=== PATIENT | male | born 1960 | race Caucasian/White ===

== ENCOUNTER → 2017-07-25 | Outpatient (CLI) | payer MEDICARE, OTHER ==
[2017-03-29 17:44] VITALS: BMI 30.6
[~2017-07-25] MED LIST: AMOX-559 PO; BACDS GT; BACL-51 PO; BACL50AM IT; CALC500T6 PO; CAR350 PO; CARI250T10 PO; CEPH-13 PO; CEPH500C24 PO; DEN60I SUBQ; DOCU-416 PO; GAV PO; HYDR-3250 PO; IBU600 PO; LOR5 PO; MOM110R IH; MOMR; MON10 PO; MOXI400T28 PO; MULT1TAB64 PO; NAPR-712 PO; OXY5 TD; OXYB10TA16 PO; OXYXL5 PO; PER PO; POLY119P24 PO; POLY17PO33 PO; RAN150 PO; TAMS0.4C25 PO; TEST2.5G6 TD; VILA40TA PO; [UNRECOGNIZED DRUG - CODE] TP; [UNRECOGNIZED DRUG - OTHER]; [UNRECOGNIZED DRUG - OTHER]; [UNRECOGNIZED DRUG - OTHER] PO
--- NOTE | 2017-07-25 12:14 | RADIOLOGY IMAGING REPORT ---
FACILITY: [facility] - [place] PATIENT NAME: Ramu Carney : 1960 MR: [id number] V: [id number] EXAM DATE: ORDERING PHYSICIAN: CHASTITY KENNEDY TECHNOLOGIST: [place] [facility] [place] Patient: Ramu Carney : 1960 Visit/Account:[id number] Date of Sevice: 07/25/2017 KIDNEYS EXAMINATION: Renal ultrasound. History: Urinary frequency, history of hydro- COMPARISON STUDIES: June 16, 2016 FINDINGS: Kidneys: Right kidney- 8.9 x 4.9 x 4.2 cm resistive index 0.59 Left kidney- 9.8 x 4.8 x 4.8 cm resistive index 0.6 Uniform and symmetric blood flow in each kidney by Doppler ultrasound. Hydronephrosis: Mild on the right There is a lobular contour to both kidneys similar to the prior study Bladder: Prevoid volume 373 mL. Bilateral ureteral jets are present Post void residual was not measured Abdominal aorta and IVC: Aorta and IVC are patent by Doppler ultrasound. IMPRESSION: Lobular contour to both kidneys similar to the prior study Mild right hydronephrosis Bladder prevoid volume 373 mL Report Dictated By: Gracy Veras MD at 07/25/2017 12:05 PM Report E-Signed By: Gracy Veras MD at 07/25/2017 12:10 PM WSN:[email or web address]
== END ==
LOC: US 00:32
PROVIDERS: ATTEND Urology
DX: Z12.5 Encounter for screening for malignant neoplasm of prostate (principal); N13.30 Unspecified hydronephrosis; N28.9 Disorder of kidney and ureter, unspecified; N31.2 Flaccid neuropathic bladder, not elsewhere classified; R35.0 Frequency of micturition; E29.1 Testicular hypofunction
CPT/HCPCS: 36415; 76705; 82565; G0103; 84153

== ENCOUNTER → 2017-08-08 | Outpatient (CLI) | payer MEDICARE, OTHER ==
[2017-03-29 17:44] VITALS: BMI 30.6
[~2017-08-08] MED LIST changes: +IOPAMIDOL 76% 150 ML INFUS BTL 150 ML ONE; +NS 0.9% 150 ML BAG 150 ML ONE
--- NOTE | 2017-08-08 11:37 | RADIOLOGY IMAGING REPORT ---
FACILITY: [facility] [place] PATIENT NAME: Ramu Carney : 1960 MR: [id number] V: [id number] EXAM DATE: ORDERING PHYSICIAN: CHASTITY KENNEDY TECHNOLOGIST: Location: [facility] - [place] Patient: Ramu Carney : 1960 Visit/Account:[id number] Date of Sevice: 08/08/2017 ADDENDUM #1 Addendum: Seen but failed to be described in the initial report was a neurostimulator lead entering t he lumbar vertebral body at the L2-3 level and extending into the lower thoracic spine. Report Dictated By: Tee Medina MD at 08/08/2017 11:55 AM Report E-Signed By: Tee Medina MD at 08/08/2017 11:56 AM ORIGINAL REPORT ABDOMEN/PELVIS W/WO CONTRAST HISTORY: Microhematuria TECHNIQUE: Spiral scan was obtained through the abdomen/pelvis last pelvis without intravenous cont rast. One of the following dose optimization techniques was utilized in the performance of this exam: Autom ated exposure control; adjustment of the mA and/or kV according to the patient's size; or use of an i terative reconstruction technique. Specific details can be referenced in the facility's radiology C T exam operational policy. COMPARISON STUDIES: none. FINDINGS: Please note that without intravenous contrast, sensitivity to detection of parenchymal disease is price ited. Liver / biliary: Status post cholecystectomy Pancreas: negative Spleen: negative Adrenal glands: negative Kidneys / retroperitoneum: Moderate left hydronephrosis with an obstructing 10 mm x 5.5 mm stone in t he proximal left ureter (image 67 axial and image 54 coronal). No additional stones seen within eith er kidney. Bowel / peritoneum / mesenteries: No colonic mass lesion. No bowel inflammation. Vessels: negative Musculoskeletal / Body wall: negative Lymph node assessment: negative Lower chest: negative IMPRESSION: 1. Obstructing 10 x 5.5 mm stone in the proximal left ureter. Report Dictated By: Tee Medina MD at 08/08/2017 11:08 AM Report E-Signed By: Tee Medina MD at 08/08/2017 11:33 AM WSN:[email or web address]
== END ==
LOC: CT 02:23
PROVIDERS: ATTEND Urology
DX: N20.1 Calculus of ureter (principal); Z96.89 Presence of other specified functional implants
CPT/HCPCS: 74178; Q9967

== ENCOUNTER 2017-08-17 01:18 | Day surgery (SDC) | payer MEDICARE, OTHER ==
[2017-03-29 17:44] VITALS: Ht 177.8 cm; Wt 87.1 kg
[2017-08-16 10:12] LABS: PLATELET COUNT, AUTOMATED 240 K/uL (150-450)
[2017-08-16 10:29] LABS: INR 0.99
--- NOTE | 2017-08-16 15:05 | HISTORY AND PHYSICAL ---
DATE OF ADMISSION: August 17, 2017 CHIEF COMPLAINT Microscopic hematuria with kidney stone. HISTORY OF PRESENT ILLNESS The patient is a 57-year-old white gentleman with a history of neurogenic bladder and BPH secondary to hydrocephalus and cerebral palsy who has been followed in the urology clinic for several years, and on his most recent followup, he was noted to have significant microscopic hematuria with greater than 100,000 red blood cells. He denied significant change in his symptoms. He says he had no gross hematuria or significant flank pain. He was currently managing his bladder on Flomax and Ditropan with good results. A renal ultrasound was performed on July 25, 2017, which was read as having mild hydronephrosis, but otherwise normal with a post-void residual of 337. Given his significant amount of microscopic hematuria, a CT urogram was performed on August 08, 2017, which revealed moderate left hydroureteral nephrosis to a 10.0 x 5.5 mm stone in the proximal left ureter. No other additional stones were identified. The patient was called, and we discussed the results of this x- ray. Given the large size and hydronephrosis, it was extremely unlikely he would pass this stone, and has elected to undergo urologic intervention with planned stent placement with extracorporeal shockwave lithotripsy and/or ureteroscopy as indicated. We also discussed, given the large size and unknown timeframe this stone has been there, it could be significantly impacted, thereby compromising her ability to place a stent from below. If this is unsuccessful, then he might need a percutaneous nephrostomy tube to provide drainage. He understands this plan. PAST MEDICAL HISTORY 1. Hydrocephalus with cerebral palsy. 2. Depression. 3. Degenerative joint disease. 4. History of bronchitis. 5. History of left lower leg cellulitis. 6. Gastroesophageal reflux disease. 7. Neurogenic bladder with urge incontinence and BPH. PAST SURGICAL HISTORY 1. Tonsillectomy. 2. Laparoscopic cholecystectomy. 3. Appendectomy. 4. Baclofen pump. 5. Right ankle fusion. 6. Bilateral vasectomy. 7. Ventricular atrial shunt with several revisions. 8. Right orchiectomy secondary to torsion with left orchiopexy. CURRENT MEDICATIONS 1. Intrathecal baclofen. 2. Vilazodone. 3. Ditropan. 4. Flomax. 5. Ranitidine. 6. Naproxen. 7. Tylenol. 8. Colace. ALLERGIES LATEX. Nausea and vomiting with CODEINE. FAMILY HISTORY Noncontributory. REVIEW OF SYSTEMS Patient denies gross hematuria, flank pain, nausea, vomiting, fever, chills, productive cough, chest pain or bleeding disorder. PHYSICAL EXAMINATION GENERAL: Patient is a 57-year-old white male with cerebral palsy defects with decreased motor in extremities x 4. He is alert and oriented. CHEST: Clear to auscultation. CARDIOVASCULAR EXAM: Regular rate and rhythm. ABDOMINAL EXAM: Soft, nontender, no masses are palpated. EXAM: Deferred to the OR. EXTREMITY EXAM: He has pitting edema bilaterally. IMPRESSION This is a 57-year-old white male with a history of neurogenic bladder secondary from cerebral palsy and hydrocephalus, who is now noted to have microscopic hematuria. Workup with a CT urogram revealed a normal upper tract except for a 10 x 5 mm stone in the left proximal ureter with hydronephrosis. PLAN We will perform anesthetic cystoscopy followed by left ureteral stent placement with possible ureteroscopy and/or extracorporeal shockwave lithotripsy as indicated. ANGELINE
[2017-08-17] VITALS (7 sets, daily range): BP systolic 123–137; BP diastolic 68–91
[~2017-08-17] VITALS: Ht 177.8 cm; Wt 87.1 kg
[~2017-08-17 01:18] MED LIST changes: -IOPAMIDOL 76% 150 ML INFUS BTL 150 ML ONE; -NS 0.9% 150 ML BAG 150 ML ONE
[2017-08-17] MEDS: FAMOTIDINE 20 MG TAB PO ONE ×2 (09:56→10:27)
[2017-08-17] MEDS ORDERED: ceFAZolin(*) 1 GM VIAL 1 GM in NS(*) 0.9% 100 ML ADDVANT BAG 100 ML IVPB ONE (10:00)
[2017-08-17] MEDS ORDERED: MIDAZOLAM 2 MG/2 ML VIAL IVP PRN (11:10)
[2017-08-17] MEDS ORDERED: LIDOCAINE/SOD BICARB 8.4% SYR ID ONE (11:10)
[2017-08-17] MEDS ORDERED: NORMOSOL R SOLN(*) 1000 ML BAG 1,000 ML IV PRN (11:10)
--- NOTE | 2017-08-17 11:26 | RADIOLOGY IMAGING REPORT ---
FACILITY: [facility] PATIENT NAME: Ramu Carney : 1960 MR: [id number] V: [id number] EXAM DATE: ORDERING PHYSICIAN: CHASTITY KENNEDY TECHNOLOGIST: Location: [facility] - [place] Patient: Ramu Carney : 1960 Visit/Account:[id number] Date of Sevice: 08/17/2017 ABDOMEN PELVIS ESWL CYSTO W/O HISTORY: Kidney stones TECHNIQUE: Axial images acquired through the abdomen/pelvis. Coronal and sagittal reformatting also performed. No IV contrast administered. Dose Lowering Technique One of the following dose optimization techniques was utilized in the performance of this exam: Autom ated exposure control; adjustment of the mA and/or kV according to the patient's size; or use of an i terative reconstruction technique. Specific details can be referenced in the facility's radiology C T exam operational policy. COMPARISON: August 08, 2017 FINDINGS: Visualized lung bases: Negative. Hepatobiliary: There is a 2.2 x 1.6 x 2 cm focal area of decreased attenuation along the anterior as pect medial segment left lobe of the liver appears relatively unchanged this has remained stable when compared to prior CT from October 29, 2007 . Patient status post cholecystectomy Spleen: Accessory splenule Adrenals: Negative. Pancreas: Negative. Kidneys ureters and bladder: 9 x 5 x 9 mm calculus previously noted at the left UPJ has migrated retr ograde and now sits within the left renal pelvis. There is no evidence of hydronephrosis or hydroure ter. There is a 1 mm nonobstructing calculus mid pole of the right kidney. No other calcifications seen in the left renal collecting system. 1.5 cm cyst medial inferior pole of the right kidney appea rs unchanged Genitalia: Negative. GI: There is circumferential rectal wall thickening . There is a moderate amount of fecal material seen in the right-sided the colon. There is no evidence of bowel obstruction Vessels/spaces/nodes: Negative. Bones/soft tissues: A battery pack projects over the septae soft tissues anterior right pelvis. The electrode extends to the thoracolumbar spinal canal. There is a small umbilical hernia containing f at Additional findings: None pertinent. IMPRESSION: There is a stable hypoattenuating mass anterior aspect medial segment left lobe of the liver since 01 01 Post surgical changes from a cholecystectomy Previous seen noted 9 x 5 x 9 mm calculus at the left UPJ has migrated retrograde and now sits in the left renal pelvis without evidence of hydronephrosis. 1 mm nonobstructing calculus mid pole right kidney There is circumferential rectal wall thickening. This could be related to decompression versus an in flammatory process although neoplastic process not entirely excluded Moderate amount of fecal material right-sided the colon which may be related to constipation. Additional chronic findings as described Report Dictated By: Gracy Veras MD at 08/17/2017 11:10 AM Report E-Signed By: Gracy Veras MD at 08/17/2017 11:22 AM WSN:[email or web address]
[2017-08-17] MEDS ORDERED: DEXAMETHASONE SOD 4 MG/ML VIAL ONE (11:43)
[2017-08-17] MEDS ORDERED: PROPOFOL EMUL(*) 10MG/ML 20 ML 20 ML ONE (11:43)
[2017-08-17] MEDS ORDERED: LIDOCAINE MPF 1% 5 ML VIAL ONE (11:43)
[2017-08-17] MEDS ORDERED: ONDANSETRON 4 MG/2 ML VIAL ONE (11:43)
[2017-08-17] MEDS ORDERED: fentaNYL CITR 100 MCG/2 ML AMP ONE (11:43)
[2017-08-17] MEDS ORDERED: LIDOCAINE 2% JELLY 30 ML TUBE ONE (12:04)
[2017-08-17] MEDS ORDERED: IOPAMIDOL-200 50 ML VIAL IS ONE (12:04)
[2017-08-17] MEDS ORDERED: KETAMINE HCL 200 MG/20 ML MDV ONE (13:00)
[2017-08-17] MEDS ORDERED: KETOROLAC 30 MG/ML VIAL ONE (13:55)
[2017-08-17] MEDS ORDERED: IBUP600T22 PO (14:34)
[2017-08-17] MEDS ORDERED: HYDR-4309 PO (14:34)
--- NOTE | 2017-08-17 21:41 | OPERATIVE REPORT 1 ---
EVENT DATE: August 17, 2017 SURGEON: Mook Murray MD ANESTHESIOLOGIST: Kyle Tinoco MD ANESTHESIA: General anesthetic. PREOPERATIVE DIAGNOSIS Left 10 x 6 mm renal pelvis kidney stone. POSTOPERATIVE DIAGNOSIS Left 10 x 6 mm renal pelvis kidney stone. PROCEDURES PERFORMED 1. Cystoscopy. 2. Left internal double-J ureteral stent placement. 3. Left extracorporeal shock wave lithotripsy of 10 x 6 mm left renal pelvis stone. ESTIMATED BLOOD LOSS Minimal. INTRAVENOUS FLUIDS Crystalloids. DRAINS 6-Micronesian x 26 cm Contour Microvasive stent on left. COMPLICATIONS None. CONDITION Patient taken to recovery room awake, in stable condition. STATEMENT OF MEDICAL NECESSITY Patient is a 57-year-old white male with history of a neurogenic bladder secondary to hydrocephalus and CP, who was noted to have increasing microscopic hematuria. CT scan performed revealed a 10 x 6 mm stone in the left proximal ureter with hydronephrosis. The above findings were discussed with the patient over the phone, and he has elected to undergo urologic intervention. Preoperative x-ray today has revealed the stone has migrated back into the renal pelvis. His urinalysis is normal today with a normal creatinine. We plan stent placement with extracorporeal shock wave lithotripsy of the left renal pelvis stone. DESCRIPTION OF PROCEDURE PERFORMED Patient was brought to the operating room. After general anesthetic was obtained, he was placed in the dorsal lithotomy position with pressure points padded and prepped and draped sterilely. Anesthetic cystoscopy was performed with the 21-Micronesian rigid sheath with a 30-degree lens. He had a normal- appearing pendulous bulbar and membranous and prostatic urethra. Upon entering his bladder, he had a smooth bladder mucosa without evidence of lesions or tumors. Both ureteral orifices were in their respective marcelina-trigone effluxing clear urine. The left ureteral orifice cannulated with a sensor wire, and an access 6-Micronesian catheter was advanced over the wire up to the level of the renal pelvis. The wire was advanced up to the renal pelvis. The access catheter was removed, and the wire was used to place a 6-Micronesian x 26 cm Contour stent. The wire was removed. He was noted to have good curling in the renal pelvis by fluoroscopy and good curling in the bladder by direct vision. The patient's bladder was drained through the cystoscopic sheath. He was then repositioned supine with his pressure points padded, and lithotripsy of the left renal pelvis stone was performed. The stone was placed in the lithotripsy crosshairs in two planes. Treatment was begun at a power setting of 1 and gradually increased to a power setting of 3 over the course of the first 300 shocks. A three-minute pause was then performed, and treatment resumed. The power was gradually increased to a max power of 7.5 over the course of the first 1500 shocks. He received a total of 3000 shocks to the left renal pelvis. Intermittent two-plane fluoroscopy was used to ensure the crosshairs remained on the stone and stone fragment pile. At the conclusion of treatment, no significant stone fragments could be identified. At this point, the patient was awakened in the operating room and taken to the recovery area in stable condition. PLAN The plan will be to allow the patient to be discharged home today, and he is to continue his Ditropan, Flomax, and Colace. He is given a prescription for [place] and Motrin. We will plan to see him in the Urology Clinic in approximately four to six weeks for a followup x-ray. If he is deemed stone- free, we will remove his stent in the office. If not, we will return to the operating room for stent removal and followup ESWL and/or ureteroscopy as indicated. ANGELINE
== END 2017-08-17 14:52 | disposition home or self-care (01) ==
LOC: OR 01:18
PROVIDERS: ATTEND Urology
DX: N13.2 Hydronephrosis with renal and ureteral calculous obstruction (principal); N31.9 Neuromuscular dysfunction of bladder, unspecified; N40.1 Benign prostatic hyperplasia with lower urinary tract symptoms; N39.41 Urge incontinence; R31.9 Hematuria, unspecified; G91.9 Hydrocephalus, unspecified; G80.9 Cerebral palsy, unspecified; F32.9 Major depressive disorder, single episode, unspecified; G47.30 Sleep apnea, unspecified; K21.9 Gastro-esophageal reflux disease without esophagitis; Z90.49 Acquired absence of other specified parts of digestive tract; Z98.2 Presence of cerebrospinal fluid drainage device; Z88.8 Allergy status to other drugs, medicaments and biological substances; Z91.040 Latex allergy status
CPT/HCPCS: 36415; 50590; 52356; 74176; 81001; 85025; 85610; 85730; 87088; C2617; J0690; J1100; J1885; J2001; J2405; J2704; J3010; J3490; J7050; 82040; 82247; 82310; 82374; 82435; 82565; 82947; 84075; 84132; 84155; 84295; 84450; 84460; 84520; Q9966

== ENCOUNTER 2017-09-25 08:00 | Outpatient (RCR) | payer MEDICARE, OTHER ==
[2017-03-29 17:44] VITALS: Ht 177.8 cm; Wt 90.3 kg
[~2017-09-25] VITALS: Ht 177.8 cm; Wt 90.3 kg
[~2017-09-25 08:00] MED LIST changes: +HYDR-4309 PO; +IBUP600T22 PO; +MODA100T5 PO
--- NOTE | 2017-09-27 17:13 | HISTORY AND PHYSICAL ---
DATE OF ADMISSION: September 28, 2017 CHIEF COMPLAINT Kidney stone. HISTORY OF PRESENT ILLNESS Patient is a 57-year-old white gentleman with a neurogenic bladder and BPH secondary to hydrocephalus and cerebral palsy who was noted to have microscopic hematuria. A CT scan was performed which showed a 10 x 6 mm stone in the left proximal ureter. The patient was subsequently taken to the operating room on August 17, at which time he underwent placement of left internal double-J ureteral stent and had extracorporeal shock wave lithotripsy of this stone. He is now being returned to the operating room for stent removal, follow-up ureteroscopy and/or ESWL as indicated. PAST MEDICAL HISTORY * Hydrocephalus with cerebral palsy. * Depression. * Degenerative joint disease. * Bronchitis. * Left lower leg cellulitis. * Gastroesophageal reflux disease. * Neurogenic bladder with urge incontinence and BPH. * Kidney stones. PAST SURGICAL HISTORY * Tonsillectomy. * Laparoscopic cholecystectomy. * Appendectomy. * Baclofen pump. * Right ankle fusion. * Bilateral vasectomy. * Ventriculoatrial shunt with several revisions. * Right orchiectomy secondary to torsion with left orchiopexy. * Left stent placement with extracorporeal shock wave lithotripsy, August 17, 2017. ALLERGIES 1. LATEX. 2. He does report nausea and vomiting with CODEINE. CURRENT MEDICATIONS * Intrathecal baclofen. * Ditropan. * Vilazodone. * Flomax. * Ranitidine. * Naprosyn. * Colace. * Tylenol. FAMILY HISTORY Noncontributory. REVIEW OF SYSTEMS Patient denies gross hematuria, fevers, chills, productive cough, chest pain, change in voiding or chronic headaches. PHYSICAL EXAMINATION GENERAL: Patient is a 57-year-old white male with cerebral palsy with extremity motor defects and contractions. He is alert and oriented. CHEST: Clear to auscultation. CARDIOVASCULAR: Exam is regular rate and rhythm. ABDOMEN: Soft, nontender. No masses are palpated. GENITOURINARY: Exam is deferred to the operating room. EXTREMITIES: He has bilateral lower pitting edema 1+. No evidence of infection. IMPRESSION A 57-year-old white male with a history of a 10 x 6 mm left kidney stone status post stent placement and extracorporeal shock wave lithotripsy. PLAN We will perform a cystoscopy, stent removal with possible ureteroscopy and/or extracorporeal shock wave lithotripsy as indicated. [facility]
[2017-09-28 07:30] VITALS: BP 113/63
[2017-09-28] MEDS ORDERED: NORMOSOL R SOLN(*) 1000 ML BAG 1,000 ML IV PRN (07:45)
[2017-09-28] MEDS ORDERED: LIDOCAINE/SOD BICARB 8.4% SYR ID ONE (07:45)
[2017-09-28] MEDS ORDERED: MIDAZOLAM 2 MG/2 ML VIAL IVP PRN (07:45)
[2017-09-28] MEDS ORDERED: ceFAZolin(*) 1 GM VIAL 1 GM in NS(*) 0.9% 100 ML ADDVANT BAG 100 ML IVPB ONE (07:45)
[2017-09-28] MEDS ORDERED: fentaNYL CITR 100 MCG/2 ML AMP ONE (07:52)
[2017-09-28] MEDS ORDERED: DEXAMETHASONE SOD PHOS 10MG/ML ONE (07:59)
[2017-09-28] MEDS ORDERED: LIDOCAINE MPF 1% 5 ML VIAL ONE (07:59)
[2017-09-28] MEDS ORDERED: ONDANSETRON 4 MG/2 ML VIAL ONE (07:59)
[2017-09-28] MEDS ORDERED: PROPOFOL EMUL(*) 10MG/ML 20 ML 0 ML ONE (07:59)
--- NOTE | 2017-09-28 08:49 | RADIOLOGY IMAGING REPORT ---
FACILITY: [facility] - [place] PATIENT NAME: Ramu Carney : 1960 MR: [id number] V: [id number] EXAM DATE: ORDERING PHYSICIAN: CHASTITY KENNEDY TECHNOLOGIST: Location: [facility] [place] Patient: Ramu Carney : 1960 Visit/Account:[id number] Date of Sevice: 09/28/2017 ABDOMEN PELVIS ESWL CYSTO W/O HISTORY: STONE PLACEMENT TECHNIQUE: Axial images acquired through the abdomen/pelvis. Coronal and sagittal reformatting also performed. No IV contrast administered. Dose Lowering Technique One of the following dose optimization techniques was utilized in the performance of this exam: Autom ated exposure control; adjustment of the mA and/or kV according to the patient's size; or use of an i terative reconstruction technique. Specific details can be referenced in the facility's radiology C T exam operational policy. COMPARISON: August 17, 2017 FINDINGS: Visualized lung bases: Negative. Hepatobiliary: Previously noted 2.2 x 1.6 x 2 cm hypoattenuating lesion along the anterior aspect me dial segment left lobe of the liver appears unchanged and has remained stable when compared to prior from CT from October 29, 2007 . Spleen: Accessory splenule Adrenals: Negative. Pancreas: Negative. Kidneys ureters and bladder: Previously noted stone in the left renal pelvis has apparently been frag mented with several tiny stones now seen in the lower pole calyces of the left kidney, ranging in siz e from 1 to 2 mm. There Is a left ureteral stent in place. No stones are identified along the cours e of the stent. Previously noted 1 mm stone midpole of the right kidney to longer seen. Lower pole right renal cyst appears unchanged Genitalia: Negative. GI: Circumferential rectal wall thickening appears similar to the prior study. There is a moderate amount of fecal material throughout colon which can be seen with constipation. No evidence of bowel obstruction. Vessels/spaces/nodes: Negative. Bones/soft tissues: Battery pack projects over the subcutaneous soft tissues along the anterior righ t pelvis. Electrodes extend to the thoracolumbar spinal canal. Is a small focal hernia containing f at. No aggressive appearing bone lesions are seen Additional findings: None pertinent. IMPRESSION: Is a left ureteral stent in place. No callus occasions are identified along the course of the stent. The previous calculus in the left renal pelvis has been fragmented with several small stones now seen in lower pole calyces the left kidney ranging in size from 1 to 2 mm Previously noted 1 mm stone in the mid right kidney is no longer seen. Additional chronic findings as described Report Dictated By: Gracy Veras MD at 09/28/2017 8:29 AM Report E-Signed By: Gracy Veras MD at 09/28/2017 8:44 AM STEPHANYN:[email or web address]
[2017-09-28] MEDS ORDERED: SULF-198 PO ×2 (09:37)
== END 2017-09-28 18:00 | disposition home or self-care (01) ==
LOC: LAB 08:00 → OR 09-28 00:43 → EDSTATUS 09-28 09:15 → LAB 09-28 18:00
PROVIDERS: ATTEND Urology
DX: N20.0 Calculus of kidney (principal); G80.9 Cerebral palsy, unspecified; F32.9 Major depressive disorder, single episode, unspecified; K21.9 Gastro-esophageal reflux disease without esophagitis; N31.9 Neuromuscular dysfunction of bladder, unspecified
CPT/HCPCS: 74176; 81001; J1100; J2001; J2405; J2704; J3010

== ENCOUNTER 2017-10-05 00:13 | Day surgery (SDC) | payer MEDICARE, OTHER ==
[2017-03-29 17:44] VITALS: Ht 177.8 cm; Wt 90.4 kg
--- NOTE | 2017-10-04 14:49 | HISTORY AND PHYSICAL ---
INTERVAL HISTORY AND PHYSICAL DATE OF ADMISSION: October 05, 2017 CHIEF COMPLAINT Kidney stones. HISTORY OF INTERVAL PRESENT ILLNESS The patient is a 57-year-old white male who was originally scheduled for ESWL with removal of internal ureteral stent last week. However, on presentation to the hospital, he was experiencing extremely foul-smelling urine, and his urine appeared to be grossly infected. He was empirically started on Bactrim twice a day. The patient reports immediate relief of symptoms over the course of two days. Urine culture performed two days ago is currently without growth. We plan to proceed with left lower pole extracorporeal shock wave lithotripsy with cystoscopy with removal of left internal stent. [facility]
[~2017-10-05] VITALS: Ht 177.8 cm; Wt 90.4 kg
[~2017-10-05 00:13] MED LIST changes: +SULF-198 PO
[2017-10-05] MEDS: FAMOTIDINE 20 MG TAB PO ONE ×2 (08:06→08:29)
[2017-10-05 08:10] VITALS: BP 118/70
[2017-10-05] MEDS ORDERED: fentaNYL CITR 100 MCG/2 ML AMP ONE (08:32)
[2017-10-05] MEDS ORDERED: DEXAMETHASONE SOD 4 MG/ML VIAL ONE (08:32)
[2017-10-05] MEDS ORDERED: LIDOCAINE MPF 1% 5 ML VIAL ONE (08:32)
[2017-10-05] MEDS ORDERED: ONDANSETRON 4 MG/2 ML VIAL ONE (08:32)
[2017-10-05] MEDS ORDERED: PROPOFOL EMUL(*) 10MG/ML 20 ML 20 ML ONE (08:32)
--- NOTE | 2017-10-05 09:13 | RADIOLOGY IMAGING REPORT ---
FACILITY: [facility] - [place] PATIENT NAME: Ramu Carney : 1960 MR: [id number] V: [id number] EXAM DATE: ORDERING PHYSICIAN: CHASTITY KENNEDY TECHNOLOGIST: Location: [facility] Patient: Ramu Carney : 1960 Visit/Account:[id number] Date of Sevice: 10/05/2017 ABDOMEN PELVIS ESWL CYSTO W/O Indication: PRE-OP COMPARISON STUDIES: CT abdomen and pelvis 09/28/2017.. TECHNIQUE: Noncontrast CT lung bases to the pubic symphysis obtained. One of the following dose optimization techniques was utilized in the performance of this exam: autom ated exposure control; adjustment of the mA and/or kV according to the patient's size; or use of an i terative reconstruction technique. Specific details can be referenced in the facility's radiology CT exam operational policy. FINDINGS: Liver / gallbladder: There is a lesion in the left lobe the liver, 1.4 cm. This is unchanged compare d to CT abdomen and pelvis 10/29/2007. Remaining portions the liver demonstrate normal attenuation. There are postoperative changes from a cholecystectomy. Pancreas: Pancreas is unremarkable. Spleen: Normal. Adrenal glands: Normal. Kidneys: There is a left-sided ureteral double-J stent, in good position unchanged. Small calculi a re seen in the lower pole left kidney, unchanged. There is no evidence of left-sided hydronephrosis. There is a simple cyst in the lower pole of the right kidney, unchanged. There is no evidence of r ight renal calculus. The right ureter is normal. Pelvis: Urinary bladder is normal. Bowel: Small bowel, colon, and stomach are normal. Vessels: Negative Musculoskeletal / Body wall: There is a spinal canal stimulator lead, with powerpack in the anterior right lower quadrant, unchanged. Lymph node assessment: Negative Lower chest: Negative IMPRESSION: 1. Left ureteral internal double-J stent which is in good position. There is no evidence of left-si ded hydronephrosis. 2. There are several small calculi lower pole left kidney, unchanged from 09/28/2017. 3. Spinal canal stimulator leads are unchanged. 4. Benign low-attenuation lesion left lobe the liver, unchanged compared to CT abdomen and pelvis . Report Dictated By: Matty Swift at 10/05/2017 9:02 AM Report E-Signed By: Matty Swift at 10/05/2017 9:10 AM WSN:[email or web address]
[2017-10-05] MEDS ORDERED: ceFAZolin(*) 2GM/D5W 50ML 50 ML IVPB ONE (09:20)
[2017-10-05] MEDS ORDERED: NORMOSOL R SOLN(*) 1000 ML BAG 1,000 ML IV PRN (09:30)
[2017-10-05] MEDS ORDERED: KETAMINE HCL 200 MG/20 ML MDV ONE (09:30)
[2017-10-05] MEDS ORDERED: LIDOCAINE/SOD BICARB 8.4% SYR ID ONE (09:30)
[2017-10-05] MEDS ORDERED: MIDAZOLAM 2 MG/2 ML VIAL IVP PRN (09:30)
[2017-10-05] MEDS ORDERED: BELLADONNA ALK/OPIUM 60MG SUPP PR ONE (10:21)
[2017-10-05] MEDS ORDERED: KETOROLAC 30 MG/ML VIAL ONE (10:30)
[2017-10-05] MEDS ORDERED: SULF-198 PO (11:02)
[2017-10-05] MEDS ORDERED: DOCU-416 PO (11:03)
[2017-10-05] MEDS ORDERED: IBUP600T22 PO (11:03)
[2017-10-05] MEDS ORDERED: HYDR-4309 PO (11:07)
[2017-10-05 11:30] VITALS: BP 124/71
[2017-10-05 11:45] VITALS: BP 132/97
[2017-10-05 12:00] VITALS: BP 131/76
[2017-10-05 12:15] VITALS: BP 130/67
--- NOTE | 2017-10-05 16:00 | OPERATIVE REPORT 1 ---
EVENT DATE: October 05, 2017 SURGEON: Mook Murray MD ANESTHESIOLOGIST: Kyle Tinoco MD ANESTHESIA: General anesthetic. PREOPERATIVE DIAGNOSIS Left lower pole renal calculi with left indwelling ureteral stent. POSTOPERATIVE DIAGNOSIS Left lower pole renal calculi with left indwelling ureteral stent. PROCEDURES PERFORMED 1. Left lower pole extracorporeal shock wave lithotripsy. 2. Anesthetic cystoscopy with grasping and removal of left ureteral stent. ESTIMATED BLOOD LOSS Minimal. INTRAVENOUS FLUIDS Crystalloid. DRAINS None. COMPLICATIONS None. CONDITION Patient taken to the recovery room awake, in stable condition. STATEMENT OF MEDICAL NECESSITY Patient is a 57-year-old white male with a history of a neurogenic bladder secondary to hydrocephalus and cerebral palsy who was originally noted to have a 10 x 6 mm stone in the left proximal ureter. He subsequently underwent stent placement with extracorporeal shock wave lithotripsy on August 17. Followup x- ray revealed a few remaining fragments in the lower pole with good stent placement. He is now being brought to the operating room for planned followup lower pole lithotripsy with removal of double-J stent. DESCRIPTION OF PROCEDURE PERFORMED Patient was brought to the operating room. After general anesthetic was obtained, he was placed supine on the lithotripsy table with his pressure points padded. The stone cluster in the left lower pole was identified and placed in the lithotripsy crosshairs in two planes. Treatment was begun on a power setting of 2 and gradually increased to a power setting of 3-1/2 over the course of the first 300 shocks. A three-minute pause was then performed, and treatment resumed. He received a total of 2500 shocks to the left lower pole stone fragment area. Intermittent two-plane fluoroscopy was used throughout treatment to ensure the crosshairs remain on the stone fragment pile. At the conclusion of treatment, no significant fragments could be identified. Following lithotripsy, he was placed in the dorsal lithotomy position and prepped and draped in the usual sterile manner. Anesthetic cystoscopy was performed with a 21-Macedonian Gautam sheath and 30-degree lens. The patient was known to have a normal pendulous bulbomembranous urethra. Upon entering his bladder, the Bridge grasping forceps were then used to engage the stent emanating from the left ureteral orifice. It was gently grasped and removed intact. The patient's bladder was drained through the cystoscopic sheath. The scope was removed. A B and O suppository was given per rectally. He was awakened in the operating room and taken to the recovery area in stable condition. PLAN The plan will be to allow the patient to be discharged home today. He is to continue his Ditropan and Flomax, and we will give him a prescription for Garland , Motrin, and Bactrim for three days. We will plan to see him in Urology Clinic in approximately six to eight weeks with a followup low-dose CT scan to evaluate treatment results and drainage of the system. ANGELINE
== END 2017-10-05 11:30 | disposition home or self-care (01) ==
LOC: OR 00:13
PROVIDERS: ATTEND Urology
DX: N20.0 Calculus of kidney (principal)
CPT/HCPCS: 50590; 52310; 74176; 81001; 87088; A9270; J1100; J1885; J2001; J2405; J2704; J3010; J3490; J0690

== ENCOUNTER 2018-02-13 22:08 | Inpatient (IN) | payer MEDICARE, OTHER ==
[~2018-02-13] VITALS: Ht 180.3 cm; Wt 96.2 kg
[~2018-02-13 22:08] MED LIST changes: -HYDR-4309 PO; +HYDR-653 PO
--- NOTE | 2018-02-13 22:36 | ER Report ---
History and Physical Time Seen By MD: 22:36 HPI/ROS CHIEF COMPLAINT: thinks has cellulitis again. HISTORY OF PRESENT ILLNESS: This is a 57 year old male. He has a large fluid filled blister on the lateral foot. He bumped this area a week ago and had a bruise and what appeared to be a hematoma. He says that this area increased in size and fluid. He then started getting redness of the foot which has increased up over the leg to the knee area over the last 36 hours or so. No fevers or chills noted yet. He does have associated pain and swelling. No recent antibiotics, the last antibiotics she was on was after his hospitalization for cellulitis last March. REVIEW OF SYSTEMS: Constitutional: As above. Cardiovascular: No chest pain. Respiratory: No shortness of breath. Gastrointestinal: No abdominal pain. No nausea or vomiting. Musculoskeletal: No musculoskeletal pain. Allergies: Coded Allergies: sertraline (Verified Allergy, Severe, RASH, 09/22/17) latex (Verified Allergy, Mild, 09/22/17) codeine (Verified Adverse Reaction, Intermediate, NAUSEA/VOMITING, 09/22/17) Home Meds Active Scripts Terbinafine Hcl (ATHLETE'S FOOT) 24 Gm Cream..g., 0 GM TP BID, #1 TUBE Prov:RCYSTAL CUETO MD 04/16/17 Reported Medications Hydrocodone Bit/Acetaminophen (NORCO 5-325 TABLET) 1 Each Tablet, 1-2 TAB PO Q6H PRN for pain, #20 TAB 10/05/17 Docusate Sodium (COLACE) 100 Mg Capsule, 100 MG PO BID, #30 CAPSULE 10/05/17 Modafinil (MODAFINIL) 100 Mg Tablet, 150 MG PO PRN 09/22/17 Calcium Carbonate (CALCIUM) 500 Mg Tablet, 2400 MG PO QDAY 06/12/16 Multivitamin (MULTI VITAMIN DAILY) 1 Each Tablet, 1 EACH PO QDAY 06/12/16 Oxybutynin Chloride (OXYBUTYNIN CHLORIDE ER) 10 Mg Tab.er.24, 10 MG PO BID, TAB.SR 06/12/16 Tamsulosin Hcl (FLOMAX) 0.4 Mg Cap.er.24h, 0.4 MG PO DAILY 02/23/15 Naproxen (NAPROSYN) 250 Mg Tablet, 440 MG PO QAM, TAB takes 2 220mg tab q am 02/23/15 Baclofen (LIORESAL INTRATHECAL) 50 Mcg/1 Ml Ampul, 165 MCG IT DAILY Continuous Infusion via inserted pump 02/23/15 Vilazodone Hydrochloride (VIIBRYD) 40 Mg Tablet, 40 MG PO QDAY 02/21/12 Al Hydrox/Mg Trisilicate (Gaviscon) 1 Ea Chew, 4 EA PO QHS 02/21/12 Acetaminophen/Diphenhydramine (TYLENOL PM (OR EQUIV) 500/25 MG (PATIENT OWN) 1 Each Tablet, 1 TAB PO QHS PRN 325/25 02/20/12 Ranitidine Hcl (Zantac) 150 Mg Tab, 150 MG PO BID, 0 Refills 01/26/10 Discontinued Reported Medications Sulfamethoxazole/Trimet 800-160 Mg Tab (BACTRIM DS TABLET) 1 Each Tablet, 1 TAB PO Q12H, #6 TAB 10/05/17 Reviewed Nurses Notes: Yes Hx Smoking: No Exposure to Second Hand Smoke?: No Hx Substance Use Disorder: No Hx Alcohol Use: No Constitutional Vital Sign - Last 24 Hours 02/13/18 02/13/18 02/13/18 02/13/18 22:32 22:38 22:53 22:57 Temp 100.3 Pulse 115 ??? 115 Resp 18 B/P (MAP) 91/69 (76) 101/64 Pulse Ox 95 93 O2 Delivery Room Air 02/13/18 02/13/18 02/13/18 02/13/18 22:59 23:08 23:23 23:30 Pulse ??? 117 B/P (MAP) 101/64 (76) 76/52 (60) Pulse Ox 93 02/13/18 02/13/18 02/14/18 02/14/18 23:38 23:53 00:00 00:08 Pulse 114 118 ??? B/P (MAP) 95/62 (73) Pulse Ox 94 93 02/14/18 02/14/18 02/14/18 02/14/18 00:28 00:30 00:43 00:58 Pulse 115 112 100 B/P (MAP) ???/??? (1665) Pulse Ox 96 94 97 02/14/18 02/14/18 02/14/18 02/14/18 01:00 01:13 01:28 01:30 Pulse 103 105 B/P (MAP) ???/??? (1665) 47/32 (37) Pulse Ox 93 96 02/14/18 02/14/18 02/14/18 02/14/18 01:43 01:58 02:00 02:05 Pulse 112 108 127 B/P (MAP) 81/35 (50) Pulse Ox 96 95 91 02/14/18 02/14/18 02/14/18 02/14/18 02:20 02:30 02:35 02:50 Pulse ??? 108 110 B/P (MAP) 84/62 (69) 81/68 (72) Pulse Ox 94 94 02/14/18 02/14/18 02/14/18 02/14/18 03:00 03:05 03:30 03:35 Pulse 105 99 Resp 10 B/P (MAP) 97/66 (76) 102/67 (79) Pulse Ox 94 92 02/14/18 02/14/18 03:50 04:00 Pulse 103 Resp 10 B/P (MAP) 99/68 (78) Pulse Ox 95 Physical Exam General Appearance: The patient is alert. No acute distress. ENT: Mucous membranes are moist. Respiratory: Breathing easily. Cardiovascular: Regular rate and rhythm. Normal pulses. Gastrointestinal: Abdomen is soft and non tender. Nondistended. Normal active bowel sounds. Neurological: Alert and oriented x3. Skin: Redness up to the knee. Marked the leading edge. Large blister, about 8cm diameter lateral foot/ankle area. Musculoskeletal: Right lower extremity is tender as well. DIFFERENTIAL DIAGNOSIS: After history and physical exam, differential diagnosis was considered for cellulitis, likely source the hematoma, which is now a blister. Medical Decision Making Data Points Result Diagram: 02/14/18 0009 Laboratory Hematology Test 02/14/18 00:00 02/14/18 00:09 02/14/18 02:45 Sodium Level 137 mmol/L (137-145) Potassium Level 3.7 mmol/L (3.5-5.0) Chloride Level 105 mmol/L (98-107) Carbon Dioxide Level 21 mmol/L (22-30) Blood Urea Nitrogen 40 mg/dl (9-21) Creatinine 1.40 mg/dl (0.66-1.25) Glomerular Filtration Rate Calc 52.2 Random Glucose 97 mg/dl (75-110) Calcium Level 8.9 mg/dl (8.4-10.2) Total Bilirubin 0.5 mg/dl (0.2-1.3) Aspartate Amino Transf (AST/SGOT) 49 U/L (0-35) Alanine Aminotransferase (ALT/SGPT) 86 U/L (0-56) Alkaline Phosphatase 141 U/L (0-126) C-Reactive Protein 41.1 mg/dl (<1.0) Total Protein 6.2 g/dl (6.3-8.2) Albumin 3.3 g/dl (3.5-5.0) Urine Color Yellow Urine Clarity Slightly-cloudy Urine pH 5.0 pH (4.8-9.5) Urine Specific [place] 1.027 Urine Protein 100 mg/dL (NEGATIVE) Urine Glucose (UA) Negative mg/dL (NEGATIVE) Urine Ketones Negative mg/dL (NEGATIVE) Urine Blood Negative (NEGATIVE) Urine Nitrite Negative (NEGATIVE) Urine Bilirubin Negative (NEGATIVE) Urine Urobilinogen Negative mg/dL (0.2-1.9) Urine Leukocyte Esterase Negative (NEGATIVE) Urine RBC 1 /HPF (0-2/HPF) Urine WBC 5 /HPF (0-5/HPF) Urine Squamous Epithelial Cells Few /LPF (</=FEW) Urine Transitional Epithelial Cells Few /LPF (NONE-FEW) Urine Bacteria Few /HPF (NONE-FEW) Urine Hyaline Casts Many /LPF (NONE-FEW) Urine Granular Casts Moderate /LPF (NONE) Urine Mucus Few /HPF (NONE-FEW) Chemistry Test 02/14/18 00:00 02/14/18 00:09 02/14/18 02:45 Glomerular Filtration Rate Calc 52.2 Calcium Level 8.9 mg/dl (8.4-10.2) Total Bilirubin 0.5 mg/dl (0.2-1.3) Aspartate Amino Transf (AST/SGOT) 49 U/L (0-35) Alanine Aminotransferase (ALT/SGPT) 86 U/L (0-56) Alkaline Phosphatase 141 U/L (0-126) C-Reactive Protein 41.1 mg/dl (<1.0) Total Protein 6.2 g/dl (6.3-8.2) Albumin 3.3 g/dl (3.5-5.0) Urine Color Yellow Urine Clarity Slightly-cloudy Urine pH 5.0 pH (4.8-9.5) Urine Specific [place] 1.027 Urine Protein 100 mg/dL (NEGATIVE) Urine Glucose (UA) Negative mg/dL (NEGATIVE) Urine Ketones Negative mg/dL (NEGATIVE) Urine Blood Negative (NEGATIVE) Urine Nitrite Negative (NEGATIVE) Urine Bilirubin Negative (NEGATIVE) Urine Urobilinogen Negative mg/dL (0.2-1.9) Urine Leukocyte Esterase Negative (NEGATIVE) Urine RBC 1 /HPF (0-2/HPF) Urine WBC 5 /HPF (0-5/HPF) Urine Squamous Epithelial Cells Few /LPF (</=FEW) Urine Transitional Epithelial Cells Few /LPF (NONE-FEW) Urine Bacteria Few /HPF (NONE-FEW) Urine Hyaline Casts Many /LPF (NONE-FEW) Urine Granular Casts Moderate /LPF (NONE) Urine Mucus Few /HPF (NONE-FEW) Urinalysis Test 02/14/18 02:45 Urine Color Yellow Urine Clarity Slightly-cloudy Urine pH 5.0 pH (4.8-9.5) Urine Specific [place] 1.027 Urine Protein 100 mg/dL (NEGATIVE) Urine Glucose (UA) Negative mg/dL (NEGATIVE) Urine Ketones Negative mg/dL (NEGATIVE) Urine Blood Negative (NEGATIVE) Urine Nitrite Negative (NEGATIVE) Urine Bilirubin Negative (NEGATIVE) Urine Urobilinogen Negative mg/dL (0.2-1.9) Urine Leukocyte Esterase Negative (NEGATIVE) Urine RBC 1 /HPF (0-2/HPF) Urine WBC 5 /HPF (0-5/HPF) Urine Squamous Epithelial Cells Few /LPF (</=FEW) Urine Transitional Epithelial Cells Few /LPF (NONE-FEW) Urine Bacteria Few /HPF (NONE-FEW) Urine Hyaline Casts Many /LPF (NONE-FEW) Urine Granular Casts Moderate /LPF (NONE) Urine Mucus Few /HPF (NONE-FEW) ED Course/Re-evaluation Clinical Indication for ER IV: Hydration, IV Access ED Course Difficulty getting IV access and lab had a very difficult time getting blood work. They were able to get a pediatric culture tube and some blood. Nursing was eventually able to get an IV placed. Repeat lab attempts even with arterial unsuccessful at getting blood. I debrided the large blister. Opened and has components of clot consistent with the hematoma reported and alot of clear fluid. Culture was taken of this fluid. Cleaned with Hibiclens and water and bandaged with some antibiotic ointment. The peripheral IV is running well. The patient did receive Primaxin and Vancomycin IV as well as a liter of normal saline. Discussed the case with Dr. Cueto, who accepted the patient. We had discussed the patient needing a central line, but given the fact that he has a running peripheral line and can get a PICC line with radiology in a few hours, I deferred on central line at this time, but would consider if he lost IV access. Decision to Disposition Date: Feb 14, 2018 Decision to Disposition Time: 03:04 Depart Departure Latest Vital Signs Vital Signs Date Time Temp Pulse Resp B/P (MAP) Pulse Ox O2 Delivery O2 Flow Rate FiO2 02/14/18 04:00 99/68 (78) 02/14/18 03:50 103 10 95 02/13/18 22:57 100.3 Room Air Impression: Primary Impression: Cellulitis of right leg Condition: Improved Disposition: Admitted from ER Referrals: SHANNEN MILLIGAN MD (PCP) ALEXANDRO PARDO MD Feb 13, 2018 22:36
[2018-02-14] MEDS ORDERED: IMIPENEM/CILASTA(*) 500MG VIAL 500 MG in NS(*) 0.9% 100 ML BAG 100 ML IVPB ONE (02:10)
[2018-02-14] MEDS ORDERED: NS(*) 0.9% 1000 ML BAG 1,000 ML IV ONE (02:10)
[2018-02-14] MEDS ORDERED: VANCOMYCIN 1 GM ADDVIAL 1 GM in NS(*) 0.9% 250 ML ADDVAN BAG 250 ML IVPB ONE ×2 (02:10→10:00)
[2018-02-14 06:16] VITALS: BP 114/46
[2018-02-14] MEDS ORDERED: INFLUENZA VIRUS VAC 0.5ML SYR IM ONLY ONE (06:25)
[2018-02-14] MEDS ORDERED: ACETAMINOPHEN 325 MG TAB PO PRN (06:25)
--- NOTE | 2018-02-14 06:44 | History & Physical ---
History of Present Illness Chief Complaint Right leg and foot redness, swelling, pain History of Present Illness 57yo male with PMHx significant for cerebral palsy who reports onset of redness, swelling, and pain in his right foot/leg approximately a week ago. He developed some blistering over lateral malleolus area as well. He thought it may be athlete's foot and used some topical antifungal without improvement. He developed some low grade fevers, malaise, poor appetite. He presented to the ER for further evaluation. He was found to have significant cellulitis of the RLE and recommended for admission. History Problems: (1) GERD (gastroesophageal reflux disease) Status: Chronic (2) ADEOLA (obstructive sleep apnea) Status: Chronic (3) BPH (benign prostatic hypertrophy) Status: Chronic (4) Depression Status: Chronic (5) Cerebral palsy Status: Chronic Home Meds Active Scripts Terbinafine Hcl (ATHLETE'S FOOT) 24 Gm Cream..g., 0 GM TP BID, #1 TUBE Prov:CRYSTAL CUETO MD 04/16/17 Reported Medications Docusate Sodium (COLACE) 100 Mg Capsule, 100 MG PO BID, #30 CAPSULE 10/05/17 Modafinil (MODAFINIL) 100 Mg Tablet, 150 MG PO PRN 09/22/17 Calcium Carbonate (CALCIUM) 500 Mg Tablet, 2400 MG PO QDAY 06/12/16 Multivitamin (MULTI VITAMIN DAILY) 1 Each Tablet, 1 EACH PO QDAY 06/12/16 Oxybutynin Chloride (OXYBUTYNIN CHLORIDE ER) 10 Mg Tab.er.24, 10 MG PO BID, TAB.SR 06/12/16 Tamsulosin Hcl (FLOMAX) 0.4 Mg Cap.er.24h, 0.4 MG PO DAILY 02/23/15 Naproxen (NAPROSYN) 250 Mg Tablet, 440 MG PO QAM, TAB takes 2 220mg tab q am 02/23/15 Baclofen (LIORESAL INTRATHECAL) 50 Mcg/1 Ml Ampul, 165 MCG IT DAILY Continuous Infusion via inserted pump 02/23/15 Vilazodone Hydrochloride (VIIBRYD) 40 Mg Tablet, 40 MG PO QDAY 02/21/12 Al Hydrox/Mg Trisilicate (Gaviscon) 1 Ea Chew, 4 EA PO QHS 02/21/12 Acetaminophen/Diphenhydramine (TYLENOL PM (OR EQUIV) 500/25 MG (PATIENT OWN) 1 Each Tablet, 1 TAB PO QHS PRN 325/25 02/20/12 Ranitidine Hcl (Zantac) 150 Mg Tab, 150 MG PO BID, 0 Refills 01/26/10 Discontinued Reported Medications Hydrocodone Bit/Acetaminophen (NORCO 5-325 TABLET) 1 Each Tablet, 1-2 TAB PO Q6H PRN for pain, #20 TAB 10/05/17 Sulfamethoxazole/Trimet 800-160 Mg Tab (BACTRIM DS TABLET) 1 Each Tablet, 1 TAB PO Q12H, #6 TAB 10/05/17 Allergies: Coded Allergies: sertraline (Verified Allergy, Severe, RASH, 09/22/17) latex (Verified Allergy, Mild, 09/22/17) codeine (Verified Adverse Reaction, Intermediate, NAUSEA/VOMITING, 09/22/17) Other Social/Family Hx He is and lives with his . Hx Smoking: No Exposure to Second Hand Smoke?: No Caffeine Intake: Soda Caffeine/Cups Per Day: 1-2 A DAY Hx Alcohol Use: No Hx Substance Use Disorder: No Social Drug Use: Never Review of Systems Constitutional: Fever; No Chills Neurological: Weakness Eyes: No Vision Change ENT: No Hearing Loss Cardiovascular: No Chest Pain Respiratory: No Shortness of Breath Gastrointestinal: No Nausea, No Vomiting, No Diarrhea, No Hematemesis, No Hematochezia, No Melena, No Abdominal Pain Genitourinary: No Dysuria Musculoskeletal: Pain Psychiatric: Depression Exam Vital Signs Vital Signs Date Time Temp Pulse Resp B/P (MAP) Pulse Ox O2 Delivery O2 Flow Rate FiO2 02/14/18 06:16 99.1 115 16 114/46 (68) 91 Room Air General Appearance: Alert, Awake Neuro: Other (near complete quadraparesis with some flexion contractures of all four extremities) Eyes: PERRLA ENT: Oropharynx Clear Neck: No Masses Cardiovascular: Regular Rate and Rhythm Respiratory: Clear to Auscultation Chest: No Tenderness GI: Abd Soft and Non-Tender : Other (candidal changes in inguinal and perineal areas) Extremities: Warm, Perfused Integumentary: Other (circumferential erythema of RLE extending from just above the knee to include entire foot/large blistered lesion has been unroofed over r ight lateral malleolus with large amount of serosanguinous drainage) Psych: Alert & Oriented X3 Medical Decision Making Data Points Result Diagram: 02/14/18 0009 Assessment and Plan Problems: (1) Cellulitis of right leg Status: Acute Assessment & Plan: Rather extensive involvement of his right leg and foot. Most likely originated in the blister/wound. Will admit for IV antibiotics with vancomycin and Primaxin. Cultures have already been obtained in the ER. Will have wound care see. (2) Cerebral palsy Status: Chronic Assessment & Plan: He has significant quadriparesis and uses wheelchair for mobility. He does have an implanted Baclofen pump for spasticity. It is due for refill in 5 days. (3) GERD (gastroesophageal reflux disease) Status: Chronic Assessment & Plan: Continue H2 jesus. (4) Depression Status: Chronic Assessment & Plan: He is currently on Viibryd (not on formulary). (5) BPH (benign prostatic hypertrophy) Status: Chronic Assessment & Plan: Continue Flomax. (6) ADEOLA (obstructive sleep apnea) Status: Chronic Assessment & Plan: He uses a dental appliance and is not currently on CPAP/BiPAP. Venous Thromboembolism Antithrombotics Is Pt On Any Antithrombotics?: Yes Exam Sepsis Risk: No Definite Risk LENA CUETO MD Feb 14, 2018 06:44
[2018-02-14 07:31] LABS: PLATELET COUNT, AUTOMATED 147 K/uL (150-450)
[2018-02-14] MEDS: VILAZODONE HCL 40 MG TAB PO SCH (09:00)
[2018-02-14] MEDS: OXYBUTYNIN CHL XL 5 MG TABCR PO SCH (09:22)
[2018-02-14] MEDS: IMIPENEM/CILASTA(*) 500MG VIAL 400 MG in NS(*) 0.9% 100 ML BAG 100 ML IVPB SCH ×3 (09:22→21:08)
[2018-02-14] MEDS: NS(*) 0.9% 1000 ML BAG 1,000 ML IV PRN (09:22)
[2018-02-14] MEDS: DOCUSATE SODIUM 100 MG CAP PO SCH ×2 (09:22→21:07)
[2018-02-14] MEDS: TAMSULOSIN HCL 0.4 MG CAP PO SCH (09:23)
[2018-02-14] MEDS: MODAFINIL 100 MG TAB PO SCH (09:23)
[2018-02-14] MEDS: RANITIDINE HCL 150 MG TAB PO SCH ×2 (09:23→21:08)
[2018-02-14] MEDS: ENOXAPARIN 40 MG/0.4ML SYR SC SCH (09:24)
[2018-02-14 09:41] VITALS: Ht 180.3 cm; Wt 96.2 kg
[2018-02-14] MEDS: NYSTATIN 100,000 U/GM PWD 15GM TP SCH ×2 (10:15→21:08)
--- NOTE | 2018-02-14 13:41 | RADIOLOGY IMAGING REPORT ---
FACILITY: [facility] - [place], [place] PATIENT NAME: Ramu Carney : 1960 MR: [id number] V: [id number] EXAM DATE: ORDERING PHYSICIAN: ARTHUR RESENDIZ TECHNOLOGIST: Location: [facility] Patient: Ramu Carney : 1960 Visit/Account:[id number] Date of Sevice: 02/14/2018 Ultrasound-guided left brachial vein access, and fluoroscopy-guided left upper extremity PICC inserti on. HISTORY: Needs long-term IV access for antibiotics. COMPARISON: 03/31/2017. The procedure and risks were explained to the patient who agreed to proceed. Following sterile prep a nd drape the upper extremity was anesthetized with 5 ml 1 percent lidocaine without epinephrine. Ultr asound was used to locate a patent brachial vein. The basilic vein is small or occluded. Under dire ct ultrasound guidance a micropuncture set was used to place a five Wolof catheter in the left brach ial vein above the elbow. Ultrasound images were recorded and archived. A peel away sheath was insert ed. Under fluoroscopic guidance, a PICC was then advanced and positioned such that the tip was locate d in the superior vena cava at the superior caval atrial junction. The catheter was secured with a st erile dressing. The catheter was flushed with saline. The patient tolerated the procedure well withou t complications. MEDICATIONS: None. INTRASERVICE TIME: 30 minutes. FLUOROSCOPY TIME: 0.5 minutes. FLUOROSCOPY IMAGES: 1. CONTRAST: None. IMPRESSION: Left upper extremity PICC insertion. Report Dictated By: Aries Goldsmith MD at 02/14/2018 1:31 PM Report E-Signed By: Aries Goldsmith MD at 02/14/2018 1:35 PM WSN:[email or web address]
--- NOTE | 2018-02-14 13:41 | RADIOLOGY IMAGING REPORT ---
FACILITY: [facility] - [place], [place] PATIENT NAME: Ramu Carney : 1960 MR: [id number] V: [id number] EXAM DATE: ORDERING PHYSICIAN: ARTHUR RESENDIZ TECHNOLOGIST: Location: [facility] Patient: Ramu Carney : 1960 Visit/Account:[id number] Date of Sevice: 02/14/2018 Ultrasound-guided left brachial vein access, and fluoroscopy-guided left upper extremity PICC inserti on. HISTORY: Needs long-term IV access for antibiotics. COMPARISON: 03/31/2017. The procedure and risks were explained to the patient who agreed to proceed. Following sterile prep a nd drape the upper extremity was anesthetized with 5 ml 1 percent lidocaine without epinephrine. Ultr asound was used to locate a patent brachial vein. The basilic vein is small or occluded. Under dire ct ultrasound guidance a micropuncture set was used to place a five Kazakh catheter in the left brach ial vein above the elbow. Ultrasound images were recorded and archived. A peel away sheath was insert ed. Under fluoroscopic guidance, a PICC was then advanced and positioned such that the tip was locate d in the superior vena cava at the superior caval atrial junction. The catheter was secured with a st erile dressing. The catheter was flushed with saline. The patient tolerated the procedure well withou t complications. MEDICATIONS: None. INTRASERVICE TIME: 30 minutes. FLUOROSCOPY TIME: 0.5 minutes. FLUOROSCOPY IMAGES: 1. CONTRAST: None. IMPRESSION: Left upper extremity PICC insertion. Report Dictated By: Aries Goldsmith MD at 02/14/2018 1:31 PM Report E-Signed By: Aries Goldsmith MD at 02/14/2018 1:35 PM WSN:[email or web address]
[2018-02-14 14:40] VITALS: BP 107/79
[2018-02-14 18:37] VITALS: BP 106/51
[2018-02-14] MEDS ORDERED: CLINDAMYCIN 900 MG/6 ML 900 MG in NS(*) 0.9% 100 ML BAG 100 ML IVPB SCH (20:00)
[2018-02-14] MEDS: APAP/HYDROCODONE 325/5 TAB PO PRN (20:08)
[2018-02-14] MEDS: CLINDAMYCIN 900 MG/D5W 50 ML 50 ML IVPB SCH (20:13)
[2018-02-14 22:53] VITALS: BP 88/40
[2018-02-15] VITALS (7 sets, daily range): BP systolic 80–112; BP diastolic 36–62
[2018-02-15] MEDS: NS(*) 0.9% 1000 ML BAG 1,000 ML IV PRN ×2 (00:57→21:22)
[2018-02-15] MEDS: APAP/HYDROCODONE 325/5 TAB PO PRN (03:54)
[2018-02-15] MEDS: IMIPENEM/CILASTA(*) 500MG VIAL 400 MG in NS(*) 0.9% 100 ML BAG 100 ML IVPB SCH ×4 (03:58→21:22)
[2018-02-15] MEDS: CLINDAMYCIN 900 MG/D5W 50 ML 50 ML IVPB SCH ×3 (04:41→20:31)
[2018-02-15 05:48] LABS: PLATELET COUNT, AUTOMATED 131 K/uL (150-450)
[2018-02-15] MEDS: MODAFINIL 100 MG TAB PO SCH (09:00)
[2018-02-15] MEDS: VILAZODONE HCL 40 MG TAB PO SCH (09:00)
[2018-02-15] MEDS: NYSTATIN 100,000 U/GM PWD 15GM TP SCH ×2 (09:23→21:22)
[2018-02-15] MEDS: DOCUSATE SODIUM 100 MG CAP PO SCH ×2 (09:23→21:22)
[2018-02-15] MEDS: TAMSULOSIN HCL 0.4 MG CAP PO SCH (09:23)
[2018-02-15] MEDS: OXYBUTYNIN CHL XL 5 MG TABCR PO SCH (09:23)
[2018-02-15] MEDS: RANITIDINE HCL 150 MG TAB PO SCH ×2 (09:23→21:23)
[2018-02-15] MEDS: ENOXAPARIN 40 MG/0.4ML SYR SC SCH (09:24)
--- NOTE | 2018-02-15 11:50 | Hospitalist Progress Note ---
Subjective Progress Notes Subjective This patient was admitted for cellulitis. He had no acute events overnight. Patient Complains of: Cardiovascular: No: Chest Pain Respiratory: No: Shortness of Breath Physical Exam Vital Signs Date Time Temp Pulse Resp B/P (MAP) Pulse Ox O2 Delivery O2 Flow Rate FiO2 02/15/18 08:20 94 Room Air 02/15/18 08:20 98.3 105 16 86/48 (61) Intake and Output 02/15/18 07:00 Intake Total 1900 ml Output Total 750 ml Balance 1150 ml Intake Oral 600 ml IV Total 1300 ml Output Urine Total 750 ml Cardiovascular: Regular Rate and Rhythm Respiratory: Clear to Auscultation Integumentary: Other (Right leg is erythematous with blistering on foot. It has receeded from the ink lines.) Result Diagram: 02/15/1853702/15/18537 Assessment and Plan Problems: (1) Cellulitis of right leg Status: Acute Assessment & Plan: He did present with erythema and blistering to the right leg. He was initially started on vancomycin and Primaxin, but the vancomycin was discontinued in favor of clindamycin. He has had some improvement overnight. Physical therapy is providing wound care. (2) Cerebral palsy Status: Chronic Assessment & Plan: He has significant quadriparesis and uses wheelchair for mobility. He does have an implanted Baclofen pump for spasticity. It is due for refill in 5 days. (3) GERD (gastroesophageal reflux disease) Status: Chronic Assessment & Plan: Continue H2 jesus. (4) Depression Status: Chronic Assessment & Plan: He is currently on Viibryd (not on formulary). (5) BPH (benign prostatic hypertrophy) Status: Chronic Assessment & Plan: Continue Flomax. (6) ADEOLA (obstructive sleep apnea) Status: Chronic Assessment & Plan: He uses a dental appliance and is not currently on CPAP/BiPAP. Exam Sepsis Risk: No Definite Risk SHANNEN CAI DO Feb 15, 2018 11:50
[2018-02-16 00:13] VITALS: BP 125/60
[2018-02-16] MEDS: IMIPENEM/CILASTA(*) 500MG VIAL 400 MG in NS(*) 0.9% 100 ML BAG 100 ML IVPB SCH ×4 (02:40→21:14)
[2018-02-16 03:06] VITALS: BP 114/56
[2018-02-16] MEDS: CLINDAMYCIN 900 MG/D5W 50 ML 50 ML IVPB SCH ×3 (03:21→19:56)
[2018-02-16 05:38] LABS: PLATELET COUNT, AUTOMATED 145 K/uL (150-450)
[2018-02-16 07:07] VITALS: BP 116/62
[2018-02-16] MEDS ORDERED: NS(*) 0.9% 250 ML BAG 250 ML ONE (09:42)
[2018-02-16] MEDS: DOCUSATE SODIUM 100 MG CAP PO SCH ×2 (09:52→21:14)
[2018-02-16] MEDS: ENOXAPARIN 40 MG/0.4ML SYR SC SCH (09:52)
[2018-02-16] MEDS: RANITIDINE HCL 150 MG TAB PO SCH ×2 (09:52→21:14)
[2018-02-16] MEDS: POTASSIUM CHL 10 MEQ TABCR PO SCH ×2 (09:52→17:19)
[2018-02-16] MEDS: OXYBUTYNIN CHL XL 5 MG TABCR PO SCH (09:52)
[2018-02-16] MEDS: TAMSULOSIN HCL 0.4 MG CAP PO SCH (09:52)
[2018-02-16] MEDS: VILAZODONE HCL 40 MG TAB PO SCH ×2 (09:53→10:35)
[2018-02-16] MEDS: NYSTATIN 100,000 U/GM PWD 15GM TP SCH ×2 (09:53→21:14)
[2018-02-16] MEDS: MODAFINIL 100 MG TAB PO SCH (10:34)
--- NOTE | 2018-02-16 13:11 | Antimicrobial Stewardship ---
Antimicrobial Stewardship Empiricly appropriate: Yes Significant PMH: Yes (History of DM) Duplicate/overlapping Rx: No Support empiric regimen: Yes (Initially started on ) Comment Initially started on Vancomycin + primaxin, switched to clindamycin + primaxin Approriate Cultures done: Yes Cultures need repeate: No Gram stain show Microbs: No Organism identified: No Renal/Hepatic dosing: Yes Appropriate dose for site: Yes Reviewed for Drug Interaction: Yes Monitored for Toxicities: Yes Clinically stable/improving: Yes IV to PO Opportunity: No Determine cumulative duration: Duration -7-10 days Determine standard duration: 7-10 days Comment Pt with cellulitis with blistering, empirically started on Vancomycin and Primaxin, switched to clindamycin and primaxin, now improving. Cultures pending/negative. Continue present management. AUDRA ANNE Feb 16, 2018 13:11
--- NOTE | 2018-02-16 13:12 | Hospitalist Progress Note ---
Subjective Progress Notes Subjective No new complaints. Physical Exam Vital Signs Date Time Temp Pulse Resp B/P (MAP) Pulse Ox O2 Delivery O2 Flow Rate FiO2 02/16/18 10:00 Room Air 02/16/18 07:07 113 18 116/62 (80) 93 02/16/18 03:06 98.0 Intake and Output 02/16/18 07:00 Intake Total 2390 ml Output Total 1400 ml Balance 990 ml Intake Oral 1090 ml IV Total 1300 ml Output Urine Total 1400 ml General Appearance: Alert, Awake, No Acute Distress Neuro: No Gross deficits Eyes: PERRLA Cardiovascular: Other (Tachy, regular.) Respiratory: No Respiratory Distress, Clear to Auscultation GI: Soft and Non-Tender Extremities: Warm, Edema (1+ bilaterally.) Integumentary: Other ( R leg with marked redness lower leg which is receding from previously drawn lines. Midshin with fluctuant area noted. Not obvious pustule. Heel wrapped with gauze which is soaked with bright yellow drainage. ) Psych: Alert & Oriented X3, Appropriate Mood & Affect Result Diagram: 02/16/18 0502/15/18 0538 Cultures negative thus far. Assessment and Plan Problems: (1) Cellulitis of right leg Status: Acute Assessment & Plan: He did present with erythema and blistering to the right leg. He was initially started on vancomycin and Primaxin, but the vancomycin was discontinued in favor of clindamycin. He is slowly improving. Physical therapy is providing wound care. (2) Cerebral palsy Status: Chronic Assessment & Plan: He has significant quadriparesis and uses wheelchair for mobility. He does have an implanted Baclofen pump for spasticity. It is due for refill in 5 days. (3) GERD (gastroesophageal reflux disease) Status: Chronic Assessment & Plan: Continue H2 jesus. (4) Depression Status: Chronic Assessment & Plan: He is currently on Viibryd (not on formulary). (5) BPH (benign prostatic hypertrophy) Status: Chronic Assessment & Plan: Continue Flomax. (6) ADEOLA (obstructive sleep apnea) Status: Chronic Assessment & Plan: He uses a dental appliance and is not currently on CPAP/BiPAP. Time Spent on Plan of Care: < 30 min Exam Sepsis Risk: No Definite Risk CRYSTAL CUETO MD Feb 16, 2018 13:12
[2018-02-16 15:22] VITALS: BP 112/48
[2018-02-16 19:53] VITALS: BP 126/66
[2018-02-16] MEDS: APAP/HYDROCODONE 325/5 TAB PO PRN (19:56)
[2018-02-16 23:35] VITALS: BP 126/64
[2018-02-17] MEDS: NS(*) 0.9% 1000 ML BAG 1,000 ML IV PRN (01:16)
[2018-02-17] MEDS: APAP/HYDROCODONE 325/5 TAB PO PRN ×3 (01:56→21:22)
[2018-02-17] MEDS: IMIPENEM/CILASTA(*) 500MG VIAL 400 MG in NS(*) 0.9% 100 ML BAG 100 ML IVPB SCH ×4 (02:35→21:22)
[2018-02-17] MEDS: CLINDAMYCIN 900 MG/D5W 50 ML 50 ML IVPB SCH ×3 (03:42→19:30)
[2018-02-17 03:47] VITALS: BP 126/59
[2018-02-17 06:14] LABS: PLATELET COUNT, AUTOMATED 175 K/uL (150-450)
[2018-02-17 08:41] VITALS: BP 103/62
[2018-02-17] MEDS: RANITIDINE HCL 150 MG TAB PO SCH ×2 (09:51→21:22)
[2018-02-17] MEDS: DOCUSATE SODIUM 100 MG CAP PO SCH ×2 (09:51→21:22)
[2018-02-17] MEDS: MODAFINIL 100 MG TAB PO SCH (09:51)
[2018-02-17] MEDS: TAMSULOSIN HCL 0.4 MG CAP PO SCH (09:51)
[2018-02-17] MEDS: OXYBUTYNIN CHL XL 5 MG TABCR PO SCH (09:51)
[2018-02-17] MEDS: POTASSIUM CHL 10 MEQ TABCR PO SCH ×2 (09:51→17:22)
[2018-02-17] MEDS: ENOXAPARIN 40 MG/0.4ML SYR SC SCH (09:52)
[2018-02-17] MEDS ORDERED: MAGNESIUM HYDROXIDE* 30ML UDCP PO PRN (10:10)
[2018-02-17] MEDS ORDERED: BISACODYL 10 MG SUPP PR PRN (10:10)
--- NOTE | 2018-02-17 10:23 | Hospitalist Progress Note ---
Subjective Progress Notes Subjective He reports feeling "better". Physical Exam Vital Signs Date Time Temp Pulse Resp B/P (MAP) Pulse Ox O2 Delivery O2 Flow Rate FiO2 02/17/18 08:41 98.9 99 20 103/62 (76) 89 Nasal Cannula 5.0 Intake and Output 02/17/18 07:00 Intake Total 1693 ml Output Total 3600 ml Balance -1907 ml Intake Oral 1066 ml IV Total 627 ml Output Urine Total 3600 ml General Appearance: Alert, Awake Extremities: Other (RLE with improving erythema as it has receded from boundary baker/ulcer-wound still weeping serous fluid, but appears very clean) Result Diagram: 02/17/18 0507 02/17/18 0507 Assessment and Plan Problems: (1) Cellulitis of right leg Status: Acute Assessment & Plan: He did present with erythema and blistering to the right leg/foot. He was initially started on vancomycin and Primaxin, but the vancomycin was discontinued in favor of clindamycin. He is slowly improving. Physical therapy is providing wound care. No changes at this time. It does appear he is going to need wound care for quite some time. (2) Cerebral palsy Status: Chronic Assessment & Plan: He has significant quadriparesis and uses wheelchair for mobility. He does have an implanted Baclofen pump for spasticity. It is due for refill soon. (3) GERD (gastroesophageal reflux disease) Status: Chronic Assessment & Plan: Continue H2 jesus. (4) Depression Status: Chronic Assessment & Plan: He is currently on Viibryd (not on formulary). (5) BPH (benign prostatic hypertrophy) Status: Chronic Assessment & Plan: Continue Flomax. (6) ADEOLA (obstructive sleep apnea) Status: Chronic Assessment & Plan: He uses a dental appliance and is not currently on CPAP/BiPAP. Exam Sepsis Risk: No Definite Risk LENA CUETO MD Feb 17, 2018 10:23
[2018-02-17 11:50] VITALS: BP 114/60
[2018-02-17] MEDS: NYSTATIN 100,000 U/GM PWD 15GM TP SCH ×2 (14:44→22:47)
[2018-02-17 15:21] VITALS: BP 121/72
[2018-02-17 19:33] VITALS: BP 142/52
[2018-02-17 22:48] VITALS: BP 137/74
[2018-02-18] MEDS: IMIPENEM/CILASTA(*) 500MG VIAL 400 MG in NS(*) 0.9% 100 ML BAG 100 ML IVPB SCH ×4 (03:31→20:19)
[2018-02-18 03:33] VITALS: BP 130/65
[2018-02-18] MEDS: APAP/HYDROCODONE 325/5 TAB PO PRN ×4 (03:37→23:13)
[2018-02-18] MEDS: CLINDAMYCIN 900 MG/D5W 50 ML 50 ML IVPB SCH (04:57)
[2018-02-18 07:37] VITALS: BP 104/58
[2018-02-18] MEDS: ENOXAPARIN 40 MG/0.4ML SYR SC SCH (09:24)
[2018-02-18] MEDS: RANITIDINE HCL 150 MG TAB PO SCH ×2 (09:24→20:20)
[2018-02-18] MEDS: POTASSIUM CHL 10 MEQ TABCR PO SCH ×2 (09:24→16:36)
[2018-02-18] MEDS: TAMSULOSIN HCL 0.4 MG CAP PO SCH (09:24)
[2018-02-18] MEDS: guaiFENesin 600 MG TABCR PO SCH ×2 (09:24→20:20)
[2018-02-18] MEDS: OXYBUTYNIN CHL XL 5 MG TABCR PO SCH (09:24)
[2018-02-18] MEDS: DOCUSATE SODIUM 100 MG CAP PO SCH ×2 (09:24→20:19)
[2018-02-18] MEDS: MODAFINIL 100 MG TAB PO SCH (09:25)
[2018-02-18] MEDS: NYSTATIN 100,000 U/GM PWD 15GM TP SCH ×2 (09:25→20:19)
[2018-02-18] MEDS: VILAZODONE HCL 40 MG TAB PO SCH (09:25)
--- NOTE | 2018-02-18 12:18 | Hospitalist Progress Note ---
Subjective Progress Notes Subjective 57M admitted for cellulitis. MELONY overnight, improving redness. Some congestion in sinuses. Patient Complains of: Respiratory: Congestion Physical Exam Vital Signs Date Time Temp Pulse Resp B/P (MAP) Pulse Ox O2 Delivery O2 Flow Rate FiO2 02/18/18 07:37 92 Nasal Cannula 2.0 02/18/18 07:37 99.6 101 18 104/58 (73) Intake and Output 02/18/18 07:00 Intake Total 2025 ml Output Total 1825 ml Balance 200 ml Intake Oral 1030 ml IV Total 995 ml Output Urine Total 1825 ml General Appearance: Alert, Awake, No Acute Distress Neuro: No Gross deficits Eyes: PERRLA ENT: Normal Cardiovascular: Normal Rhythm & Peripheral Pulses Respiratory: No Respiratory Distress Musculoskeletal: Other (chronic contractures.) Integumentary: Skin Intact without Lesion / Mass Psych: Alert & Oriented X3 Result Diagram: 02/17/18 0507 02/17/18 0507 Assessment and Plan Problems: (1) Cellulitis of right leg Status: Acute Assessment & Plan: He did present with erythema and blistering to the right leg/foot. He was initially started on vancomycin and Primaxin, but the vancomycin was discontinued in favor of clindamycin. Will d/c clindamycin today and monitor for signs clinical change. Possible if afebrile deescalate to Unasyn or similar tomorrow. (2) Cerebral palsy Status: Chronic Assessment & Plan: He has significant quadriparesis and uses wheelchair for mobility. He does have an implanted Baclofen pump for spasticity. It is due for refill soon. (3) GERD (gastroesophageal reflux disease) Status: Chronic Assessment & Plan: Continue H2 jesus. (4) Depression Status: Chronic Assessment & Plan: He is currently on Viibryd (not on formulary). (5) BPH (benign prostatic hypertrophy) Status: Chronic Assessment & Plan: Continue Flomax. (6) ADEOLA (obstructive sleep apnea) Status: Chronic Assessment & Plan: He uses a dental appliance and is not currently on CPAP/BiPAP. Exam Sepsis Risk: No Definite Risk GARCIA ARTHUR RESENDIZ DO Feb 18, 2018 12:18
[2018-02-18 13:00] VITALS: BP 127/70
[2018-02-18 16:46] VITALS: BP 142/66
[2018-02-18 19:10] VITALS: BP 139/71
[2018-02-18] MEDS ORDERED: HYPROMELLOSE 0.4% LUB 15ML BTL OU PRN (23:05)
[2018-02-18 23:11] VITALS: BP 130/66
[2018-02-19] MEDS: diphenhydrAMINE 25 MG CAP PO PRN ×2 (00:15→15:50)
[2018-02-19] MEDS: IMIPENEM/CILASTA(*) 500MG VIAL 400 MG in NS(*) 0.9% 100 ML BAG 100 ML IVPB SCH (02:47)
[2018-02-19 02:50] VITALS: BP 103/61
[2018-02-19 06:17] LABS: PLATELET COUNT, AUTOMATED 236 K/uL (150-450)
[2018-02-19 07:32] VITALS: BP 115/55
[2018-02-19] MEDS: MODAFINIL 100 MG TAB PO SCH (09:30)
[2018-02-19] MEDS: TAMSULOSIN HCL 0.4 MG CAP PO SCH (09:30)
[2018-02-19] MEDS: RANITIDINE HCL 150 MG TAB PO SCH ×2 (09:30→20:42)
[2018-02-19] MEDS: VILAZODONE HCL 40 MG TAB PO SCH (09:30)
[2018-02-19] MEDS: OXYBUTYNIN CHL XL 5 MG TABCR PO SCH (09:30)
[2018-02-19] MEDS: guaiFENesin 600 MG TABCR PO SCH ×2 (09:31→20:41)
[2018-02-19] MEDS: POTASSIUM CHL 10 MEQ TABCR PO SCH ×2 (09:31→17:31)
[2018-02-19] MEDS: ENOXAPARIN 40 MG/0.4ML SYR SC SCH (09:31)
[2018-02-19] MEDS: DOCUSATE SODIUM 100 MG CAP PO SCH ×2 (09:31→20:42)
[2018-02-19] MEDS: NYSTATIN 100,000 U/GM PWD 15GM TP SCH ×2 (09:32→20:44)
--- NOTE | 2018-02-19 11:03 | Hospitalist Progress Note ---
Subjective Progress Notes Subjective This patient was admitted for cellulitis. He had no acute events overnight. Patient Complains of: Cardiovascular: No: Chest Pain Respiratory: No: Shortness of Breath Physical Exam Vital Signs Date Time Temp Pulse Resp B/P (MAP) Pulse Ox O2 Delivery O2 Flow Rate FiO2 02/19/18 07:32 98.9 97 20 115/55 (75) 92 Oxy Mask 02/19/18 02:50 1.5 Intake and Output 02/19/18 07:00 Intake Total 898 ml Output Total 4800 ml Balance -3902 ml Intake Oral 480 ml IV Total 418 ml Output Urine Total 4800 ml # Bowel Movements 2 Cardiovascular: Regular Rate and Rhythm Respiratory: Clear to Auscultation Integumentary: Other Result Diagram: 02/19/1852302/19/18523 Assessment and Plan Problems: (1) Cellulitis of right leg Status: Acute Assessment & Plan: He did present with erythema and blistering to the right leg /foot. He was initially started on vancomycin and Primaxin, but the vancomycin was discontinued in favor of clindamycin. He has now been converted to oral treatment with clindamycin. We are awaiting to hear if he will require ongoing wound care on ECF. (2) Cerebral palsy Status: Chronic Assessment & Plan: He has significant quadriparesis and uses wheelchair for mobility. He does have an implanted Baclofen pump for spasticity. It is due for refill soon. (3) GERD (gastroesophageal reflux disease) Status: Chronic Assessment & Plan: Continue H2 jesus. (4) Depression Status: Chronic Assessment & Plan: He is currently on Viibryd (not on formulary). (5) BPH (benign prostatic hypertrophy) Status: Chronic Assessment & Plan: Continue Flomax. (6) ADEOLA (obstructive sleep apnea) Status: Chronic Assessment & Plan: He uses a dental appliance and is not currently on CPA P/BiPAP. Exam Sepsis Risk: No Definite Risk SHANNEN CAI DO Feb 19, 2018 11:03
[2018-02-19 11:52] VITALS: BP 120/73
[2018-02-19] MEDS: CLINDAMYCIN 150 MG CAP PO SCH ×3 (14:10→20:42)
[2018-02-19] MEDS: APAP/HYDROCODONE 325/5 TAB PO PRN ×2 (14:14→20:43)
[2018-02-19 15:18] VITALS: BP 124/66
[2018-02-19 20:12] VITALS: BP 125/65
[2018-02-19 22:25] VITALS: BP 110/57
[2018-02-20 03:21] VITALS: BP 115/51
[2018-02-20 07:41] VITALS: BP 107/62
[2018-02-20] MEDS: APAP/HYDROCODONE 325/5 TAB PO PRN (07:51)
[2018-02-20] MEDS: TAMSULOSIN HCL 0.4 MG CAP PO SCH (08:38)
[2018-02-20] MEDS: RANITIDINE HCL 150 MG TAB PO SCH ×2 (08:39→20:33)
[2018-02-20] MEDS: POTASSIUM CHL 10 MEQ TABCR PO SCH ×2 (08:39→17:06)
[2018-02-20] MEDS: CLINDAMYCIN 150 MG CAP PO SCH ×4 (08:39→20:34)
[2018-02-20] MEDS: MODAFINIL 100 MG TAB PO SCH (08:40)
[2018-02-20] MEDS: guaiFENesin 600 MG TABCR PO SCH ×2 (08:42→20:33)
[2018-02-20] MEDS: DOCUSATE SODIUM 100 MG CAP PO SCH ×2 (08:42→20:34)
[2018-02-20] MEDS: ENOXAPARIN 40 MG/0.4ML SYR SC SCH (08:45)
[2018-02-20] MEDS: VILAZODONE HCL 40 MG TAB PO SCH (09:00)
[2018-02-20] MEDS: OXYBUTYNIN CHL XL 5 MG TABCR PO SCH (09:03)
[2018-02-20] MEDS: NYSTATIN 100,000 U/GM PWD 15GM TP SCH ×2 (09:05→20:34)
--- NOTE | 2018-02-20 11:17 | SLP BEDSIDE SWALLOW EVALUATION ---
CLINICAL SWALLOW payroll tax analyst: Natalya Montoya MS, CCC-MANAGER FOOD SAFETY Ordering Provider: Type of Assessment: Bedside Dysphagia Evaluation Patient: Ramu Carney : 60; 57yrs Evaluation Date: 02/20/2018 BACKGROUND The patient is a 57-year-old male who was admitted to [facility] on 02/13/18 with significant cellulitis of the RLE including associated fevers, malaise, and poor appetite. During hospitalization, his physical therapist reported observation of coughing during consumption of thin liquids. The pts medical history is significant for cerebral palsy and quadriparesis. An ST assessment was ordered to further analyze oropharyngeal swallow status. Primary Medical Diagnosis: Cellulitis of RLE Past Medical Hx: Cerebral palsy, GERD, depression, BPH, ADEOLA Pain Scale (0-10): 0 LOC / Participation: Alert, very pleasant and cooperative Follows instructions: yes. Orientation: A&O x4 Functional Communication Deficits impact swallow function/safety, or response to therapy: No DYSPHAGIA Sialorrhea: No Xerostomia: No. Hygiene: WFL Supplemental Oxygen Use: Yes. 2LPM via NC. O2 levels >95 with nasal cannula, <90 on RA. COPD Dx: No. However, the pt has obstructive sleep apnea. Pain with Swallow: Denies. Oropharyngeal Structure and Function: Oromotor exam was unremarkable apart from L lingual deviation upon protrusion. Otherwise adequate lingual strength, speed, coordination, and ROM of all oral musculature. Full dentition. No vocal deficits noted. Strong protective cough elicited when prompted. Pt with significant lean to R at rest. Administered PO trials of thin liquids via straw (single and consecutive sips) and regular solids. Overall, oral and pharyngeal phases of swallow are WFL for normal PO intake. Pt w/ only mildly prolonged mastication time, adequate bolus formation, timely a-p transit, and clearance of material from oral cavity. Pharyngeally, pt exhibited timely swallow initiation and no overt s/sx of aspiration across PO trials. Pt reported long standing history of GERD with perceived management of symptoms via prescribed medications and adherence to compensatory strategies. He endorsed avoiding problematic foods, ensuring upright positioning with PO intake, maintaining upright positioning after PO intake, and consuming smaller meals. ST ASSESSMENT SUMMARY Aspiration Risk: Minimal. Negative prognostic indicators may include symptoms of reflux and obstructive sleep apnea with potential respiratory complications. Speech Therapy Need ST services are not indicated. Oropharyngeal swallow appears WNL. Discussed evaluation results and provided information re: general dysphagia education, aspiration precautions, and strategies to manage symptoms of reflux. Please do not hesitate to contact for re-evaluation if change in status is observed. RECOMMENDATIONS 1. Diet: Regular, thin liquids, avoid problematic foods. 2. Medications: Whole, ok with thin liquids. 3. Compensatory Techniques: up to chair during PO intake, small bites/sips, one bite/sip at a time, alternate bites/sips, upright for 60 min after PO intake, HOB elevated at 30 degrees, avoid PO intake for 2 hours prior to bedtime. 4. Supervision with meals/snacks: Not warranted. Thank you for this referral. Natalya Montoya M.S., [facility]-MANAGER FOOD SAFETY Speech Therapist [*] ANGELINE
[2018-02-20 12:08] VITALS: BP 108/64
--- NOTE | 2018-02-20 12:19 | Hospitalist Progress Note ---
Subjective Progress Notes Subjective He had a low grade fever last night. No complaints. Physical Exam Vital Signs Date Time Temp Pulse Resp B/P (MAP) Pulse Ox O2 Delivery O2 Flow Rate FiO2 02/20/18 09:40 85 02/20/18 07:41 98.6 89 22 107/62 (77) Room Air 02/20/18 03:21 1.0 Intake and Output 02/20/18 07:00 Intake Total 736 ml Output Total 4100 ml Balance -3364 ml Intake Oral 736 ml Output Urine Total 4100 ml # Bowel Movements 1 General Appearance: Alert, Awake, No Acute Distress Integumentary: Other (Erythema is much regressed from drawn lines. Erythema is not involving the toes.) Result Diagram: 02/19/1852302/19/18523 Assessment and Plan Problems: (1) Cellulitis of right leg Status: Acute Assessment & Plan: He did present with erythema and blistering to the right leg/foot. He was initially started on vancomycin and Primaxin, but the vancomycin was discontinued in favor of clindamycin. He has now been converted to oral treatment with clindamycin. He had a low grade fever yesterday. CRP is trending down. We are awaiting to hear if he will require ongoing wound care on ECF. If he goes to ECF, he will need his Baclofen pumped filled very soon, so will need to see if a [employer] that he has a number for can do it. (2) Cerebral palsy Status: Chronic Assessment & Plan: He has significant quadriparesis and uses wheelchair for mobility. He does have an implanted Baclofen pump for spasticity. It is due for refill soon. (3) GERD (gastroesophageal reflux disease) Status: Chronic Assessment & Plan: Continue H2 jesus. (4) Depression Status: Chronic Assessment & Plan: He is currently on Viibryd (not on formulary). (5) BPH (benign prostatic hypertrophy) Status: Chronic Assessment & Plan: Continue Flomax. (6) ADEOLA (obstructive sleep apnea) Status: Chronic Assessment & Plan: He uses a dental appliance and is not currently on CPAP/BiPAP. Exam Sepsis Risk: No Definite Risk KAUR DESHPANDE MD Feb 20, 2018 12:19
[2018-02-20 14:55] VITALS: BP 91/49
[2018-02-20 15:20] VITALS: BP 98/56
[2018-02-20 20:28] VITALS: BP 101/58
[2018-02-20] MEDS: traMADol 50 MG TAB PO PRN (23:01)
[2018-02-21] VITALS (7 sets, daily range): BP systolic 107–132; BP diastolic 58–66
[2018-02-21 06:02] LABS: PLATELET COUNT, AUTOMATED 334 K/uL (150-450)
[2018-02-21] MEDS: POTASSIUM CHL 10 MEQ TABCR PO SCH ×2 (08:34→17:27)
[2018-02-21] MEDS: guaiFENesin 600 MG TABCR PO SCH ×2 (08:34→21:29)
[2018-02-21] MEDS: MODAFINIL 100 MG TAB PO SCH (08:36)
[2018-02-21] MEDS: RANITIDINE HCL 150 MG TAB PO SCH ×2 (08:36→21:29)
[2018-02-21] MEDS: OXYBUTYNIN CHL XL 5 MG TABCR PO SCH (08:36)
[2018-02-21] MEDS: CLINDAMYCIN 150 MG CAP PO SCH ×4 (08:37→21:29)
[2018-02-21] MEDS: traMADol 50 MG TAB PO PRN ×3 (08:38→19:07)
[2018-02-21] MEDS: DOCUSATE SODIUM 100 MG CAP PO SCH ×2 (08:38→21:29)
[2018-02-21] MEDS: TAMSULOSIN HCL 0.4 MG CAP PO SCH (08:38)
[2018-02-21] MEDS: ENOXAPARIN 40 MG/0.4ML SYR SC SCH (08:39)
[2018-02-21] MEDS: VILAZODONE HCL 40 MG TAB PO SCH ×2 (08:52→11:27)
--- NOTE | 2018-02-21 12:10 | Hospitalist Progress Note ---
Subjective Progress Notes Subjective He denies any new complaints. No fever. Physical Exam Vital Signs Date Time Temp Pulse Resp B/P (MAP) Pulse Ox O2 Delivery O2 Flow Rate FiO2 02/21/18 11:34 92 02/21/18 11:14 Room Air 02/21/18 11:10 99.2 16 111/60 (77) 02/21/18 08:17 93 02/21/18 03:45 1.0 Intake and Output 02/21/18 07:00 Intake Total 1182 ml Output Total 2100 ml Balance -918 ml Intake Oral 1182 ml Output Urine Total 2100 ml General Appearance: Alert, Awake Cardiovascular: Regular Rate and Rhythm Respiratory: Clear to Auscultation Integumentary: Other (less erythema/edema involving RLE/blistered-ulcer area appears clean) Result Diagram: 02/21/1854502/21/18545 Assessment and Plan Problems: (1) Cellulitis of right leg Status: Acute Assessment & Plan: He did present with erythema and blistering to the right leg/foot. He was initially started on vancomycin and Primaxin, but the vancomycin was discontinued in favor of clindamycin. He has now been converted to oral treatment with clindamycin. CRP is trending down. No significant fever in past 24 hours. WBC count is up slightly. Will watch closely. PT/OT are recommending halfway rehab. (2) Cerebral palsy Status: Chronic Assessment & Plan: He has significant quadriparesis and uses wheelchair for mobility. He does have an implanted Baclofen pump for spasticity. It is due for refill soon. PT/OT are recommending termite treater helper rehab as he has had significant decline in his functional status with this acute illness. (3) GERD (gastroesophageal reflux disease) Status: Chronic Assessment & Plan: Continue H2 jesus. (4) Depression Status: Chronic Assessment & Plan: He is currently on Viibryd (not on formulary). (5) BPH (benign prostatic hypertrophy) Status: Chronic Assessment & Plan: Continue Flomax. (6) ADEOLA (obstructive sleep apnea) Status: Chronic Assessment & Plan: He uses a dental appliance and is not currently on CPAP/BiPAP. Exam Sepsis Risk: No Definite Risk LENA CUETO MD Feb 21, 2018 12:10
[2018-02-21] MEDS: diphenhydrAMINE 25 MG CAP PO PRN (12:49)
[2018-02-21] MEDS: NYSTATIN 100,000 U/GM PWD 15GM TP SCH ×2 (12:50→21:32)
[2018-02-22 05:35] VITALS: BP 111/59
[2018-02-22 05:49] LABS: PLATELET COUNT, AUTOMATED 330 K/uL (150-450)
[2018-02-22 09:21] VITALS: BP 101/65
[2018-02-22] MEDS: CLINDAMYCIN 150 MG CAP PO SCH ×4 (09:41→20:58)
[2018-02-22] MEDS: POTASSIUM CHL 10 MEQ TABCR PO SCH ×2 (09:42→16:39)
[2018-02-22] MEDS: DOCUSATE SODIUM 100 MG CAP PO SCH ×2 (09:42→20:57)
[2018-02-22] MEDS: guaiFENesin 600 MG TABCR PO SCH ×2 (09:42→20:57)
[2018-02-22] MEDS: TAMSULOSIN HCL 0.4 MG CAP PO SCH (09:42)
[2018-02-22] MEDS: OXYBUTYNIN CHL XL 5 MG TABCR PO SCH (09:42)
[2018-02-22] MEDS: RANITIDINE HCL 150 MG TAB PO SCH ×2 (09:42→20:57)
[2018-02-22] MEDS: ENOXAPARIN 40 MG/0.4ML SYR SC SCH (09:42)
[2018-02-22] MEDS: MODAFINIL 100 MG TAB PO SCH (09:44)
[2018-02-22] MEDS: NYSTATIN 100,000 U/GM PWD 15GM TP SCH ×2 (09:44→20:57)
--- NOTE | 2018-02-22 09:48 | Hospitalist Progress Note ---
Subjective Progress Notes Subjective This patient was admitted for cellulitis. He had no acute events overnight. Patient Complains of: Cardiovascular: No: Chest Pain Respiratory: No: Shortness of Breath Physical Exam Vital Signs Date Time Temp Pulse Resp B/P (MAP) Pulse Ox O2 Delivery O2 Flow Rate FiO2 02/22/18 05:35 98.5 89 16 111/59 (76) 90 Nasal Cannula 1.0 Intake and Output 02/22/18 06:59 Intake Total 1692 ml Output Total 1850 ml Balance -158 ml Intake Oral 1692 ml Output Urine Total 1850 ml # Bowel Movements 1 Cardiovascular: Regular Rate and Rhythm Respiratory: Clear to Auscultation Integumentary: Other (Erythema around right lower leg has decreased.) Result Diagram: 02/22/18 0533 02/21/18 0546 Item Value Date Time Blood Culture - Final Complete 02/14/18 0719 Blood NO GROWTH AFTER 5 DAYS IN BOTH THE AE... Urine Culture - Final Complete 02/14/18 0245 Clean Catch Midstream Ur CONTAMINATED URINE:... Wound Culture - Final Complete 02/14/18 0135 Foot Right Blood Culture - Final Complete 02/14/18 0009 Blood NO GROWTH AFTER FIVE DAYS. ONLY PEDIA... Assessment and Plan Problems: (1) Cellulitis of right leg Status: Acute Assessment & Plan: He did present with erythema and blistering to the right leg/foot. He was initially started on vancomycin and Primaxin, but the vancomycin was discontinued in favor of clindamycin. He has now been converted to oral treatment with clindamycin. His CRP has been decreasing. (2) Cerebral palsy Status: Chronic Assessment & Plan: He has significant quadriparesis and uses wheelchair for mobility. He does have an implanted Baclofen pump for spasticity. It is due for refill soon. Therapy has recommended ongoing treatment. Arrangements are being made by social work. (3) GERD (gastroesophageal reflux disease) Status: Chronic Assessment & Plan: He is on chronic treatment with ranitidine. (4) Depression Status: Chronic Assessment & Plan: He is currently on Viibryd (not on formulary). (5) BPH (benign prostatic hypertrophy) Status: Chronic Assessment & Plan: Continue Flomax. (6) ADEOLA (obstructive sleep apnea) Status: Chronic Assessment & Plan: He uses a dental appliance and is not currently on CPAP/BiPAP. Exam Sepsis Risk: No Definite Risk SHANNEN CAI DO Feb 22, 2018 09:48
[2018-02-22 15:55] VITALS: BP 117/70
[2018-02-22 21:30] VITALS: BP 116/56
[2018-02-22] MEDS: traMADol 50 MG TAB PO PRN (23:05)
[2018-02-22 23:07] VITALS: BP 115/59
[2018-02-23 04:59] VITALS: BP 121/56
[2018-02-23] MEDS: MODAFINIL 100 MG TAB PO SCH (08:31)
[2018-02-23] MEDS: TAMSULOSIN HCL 0.4 MG CAP PO SCH (08:34)
[2018-02-23] MEDS: ENOXAPARIN 40 MG/0.4ML SYR SC SCH (08:35)
[2018-02-23] MEDS: RANITIDINE HCL 150 MG TAB PO SCH ×2 (08:35→20:48)
[2018-02-23] MEDS: guaiFENesin 600 MG TABCR PO SCH ×2 (08:35→20:48)
[2018-02-23] MEDS: POTASSIUM CHL 10 MEQ TABCR PO SCH ×2 (08:35→16:59)
[2018-02-23] MEDS: NYSTATIN 100,000 U/GM PWD 15GM TP SCH ×2 (08:35→20:49)
[2018-02-23] MEDS: OXYBUTYNIN CHL XL 5 MG TABCR PO SCH (08:35)
[2018-02-23] MEDS: VILAZODONE HCL 40 MG TAB PO SCH (08:35)
[2018-02-23] MEDS: CLINDAMYCIN 150 MG CAP PO SCH ×4 (08:35→20:49)
[2018-02-23] MEDS: DOCUSATE SODIUM 100 MG CAP PO SCH ×2 (08:37→20:49)
--- NOTE | 2018-02-23 10:04 | Hospitalist Progress Note ---
Subjective Progress Notes Subjective He has no complaints this morning. He had no acute events overnight. Patient Complains of: Cardiovascular: No: Chest Pain Respiratory: No: Shortness of Breath Physical Exam Vital Signs Date Time Temp Pulse Resp B/P (MAP) Pulse Ox O2 Delivery O2 Flow Rate FiO2 02/23/18 04:59 98.6 96 16 121/56 (77) 90 Nasal Cannula 1.0 Intake and Output 02/23/18 06:59 Intake Total 222 ml Output Total 2325 ml Balance -2103 ml Intake Oral 222 ml Output Urine Total 2325 ml # Bowel Movements 3 General Appearance: Alert, Awake, No Acute Distress, Afebrile Neuro: No Gross deficits Cardiovascular: Regular Rate and Rhythm Respiratory: No Respiratory Distress, Clear to Auscultation GI: Soft and Non-Tender Psych: Alert & Oriented X3, Appropriate Mood & Affect Result Diagram: 02/22/18 0533 02/21/18 0546 Assessment and Plan Problems: (1) Cellulitis of right leg Status: Acute Assessment & Plan: He did present with erythema and blistering to the right leg/foot. He was initially started on vancomycin and Primaxin, but the vancomycin was discontinued in favor of clindamycin. He has now been converted to oral treatment with clindamycin. His CRP has been decreasing. (2) Cerebral palsy Status: Chronic Assessment & Plan: He has significant quadriparesis and uses wheelchair for mobility. He does have an implanted Baclofen pump for spasticity. It is due for refill soon. Therapy has recommended ongoing treatment. Arrangements are being made by social work. (3) GERD (gastroesophageal reflux disease) Status: Chronic Assessment & Plan: He is on chronic treatment with ranitidine. (4) Depression Status: Chronic Assessment & Plan: He is currently on Viibryd (not on formulary). (5) BPH (benign prostatic hypertrophy) Status: Chronic Assessment & Plan: Continue Flomax. (6) ADEOLA (obstructive sleep apnea) Status: Chronic Assessment & Plan: He uses a dental appliance and is not currently on CPAP/BiPAP. Exam Sepsis Risk: No Definite Risk CHRISTOPH POWER SUPERVISOR MACHINE SETTER Feb 23, 2018 10:03
[2018-02-23] MEDS: LACTOBACILLUS ACIDOPHILUS TAB PO SCH ×2 (11:03→16:59)
[2018-02-23 14:56] VITALS: BP 121/89
[2018-02-23 18:47] VITALS: BP 123/63
[2018-02-23] MEDS: traMADol 50 MG TAB PO PRN (22:53)
[2018-02-24 02:48] VITALS: BP 115/53
--- NOTE | 2018-02-24 07:55 | Hospitalist Progress Note ---
Subjective Progress Notes Subjective He denies any new problems or complaints. No fever. Physical Exam Vital Signs Date Time Temp Pulse Resp B/P (MAP) Pulse Ox O2 Delivery O2 Flow Rate FiO2 02/24/18 02:48 98.4 78 16 115/53 (73) 90 Room Air 02/23/18 12:34 1.0 Intake and Output0 02/24/18 07:00 Intake Total 1100 ml Output Total 1950 ml Balance -850 ml Intake Oral 1100 ml Output Urine Total 1950 ml # Bowel Movements 1 General Appearance: Alert, Awake Integumentary: Other (RLE with less erythema and edema/wound dressed and NE at this time - will try to check at dressing changes) Result Diagram: 02/22/18 0533 02/21/18 0546 Assessment and Plan Problems: (1) Cellulitis of right leg Status: Acute Assessment & Plan: He did present with erythema and blistering to the right leg/foot. He was initially started on vancomycin and Primaxin, but the vancomycin was discontinued in favor of clindamycin. He has now been converted to oral treatment with clindamycin. His symptoms/findings have been improving and CRP has been decreasing. No changes. (2) Cerebral palsy Status: Chronic Assessment & Plan: He has significant quadriparesis and uses wheelchair for mobility. He does have an implanted Baclofen pump for spasticity. It is due for refill soon, but we do not have any way to refill it at this facility. If we are unable to get him to a facility for refill, we will start oral baclofen. His pump will start alarming at low level on Sunday 02/25 - he will have approximately 4 days of baclofen left after low level alarm starts. Therapy has recommended ongoing treatment/rehab. Arrangements are being made by social work for care home rehab and wound care. (3) GERD (gastroesophageal reflux disease) Status: Chronic Assessment & Plan: He is on chronic treatment with ranitidine. (4) Depression Status: Chronic Assessment & Plan: He is currently on Viibryd (not on formulary). (5) BPH (benign prostatic hypertrophy) Status: Chronic Assessment & Plan: Continue Flomax. (6) ADEOLA (obstructive sleep apnea) Status: Chronic Assessment & Plan: He uses a dental appliance and is not currently on CPAP/BiPAP. Exam Sepsis Risk: No Definite Risk LENA CUETO MD Feb 24, 2018 07:55
[2018-02-24 08:41] VITALS: BP 115/55
[2018-02-24] MEDS: POTASSIUM CHL 10 MEQ TABCR PO SCH ×2 (08:42→17:08)
[2018-02-24] MEDS: LACTOBACILLUS ACIDOPHILUS TAB PO SCH ×2 (08:42→17:08)
[2018-02-24] MEDS: CLINDAMYCIN 150 MG CAP PO SCH ×4 (08:43→21:38)
[2018-02-24] MEDS: VILAZODONE HCL 40 MG TAB PO SCH (08:43)
[2018-02-24] MEDS: guaiFENesin 600 MG TABCR PO SCH ×2 (08:43→21:38)
[2018-02-24] MEDS: OXYBUTYNIN CHL XL 5 MG TABCR PO SCH (08:43)
[2018-02-24] MEDS: TAMSULOSIN HCL 0.4 MG CAP PO SCH (08:43)
[2018-02-24] MEDS: MODAFINIL 100 MG TAB PO SCH (08:43)
[2018-02-24] MEDS: RANITIDINE HCL 150 MG TAB PO SCH ×2 (08:43→21:38)
[2018-02-24] MEDS: NYSTATIN 100,000 U/GM PWD 15GM TP SCH ×2 (08:44→21:38)
[2018-02-24] MEDS: DOCUSATE SODIUM 100 MG CAP PO SCH ×2 (08:44→21:00)
[2018-02-24] MEDS: ENOXAPARIN 40 MG/0.4ML SYR SC SCH (08:44)
[2018-02-24 13:07] VITALS: BP 116/64
[2018-02-24] MEDS: traMADol 50 MG TAB PO PRN ×2 (13:24→23:01)
[2018-02-24 15:45] VITALS: BP 107/63
[2018-02-24 19:01] VITALS: BP 120/60
[2018-02-24 22:45] VITALS: BP 113/59
[2018-02-25 03:11] VITALS: BP 94/52
[2018-02-25 06:14] LABS: PLATELET COUNT, AUTOMATED 433 K/uL (150-450)
--- NOTE | 2018-02-25 08:06 | Hospitalist Progress Note ---
Subjective Progress Notes Subjective No new complaints. His leg is feeling better today, less pain with movement. Physical Exam Vital Signs Date Time Temp Pulse Resp B/P (MAP) Pulse Ox O2 Delivery O2 Flow Rate FiO2 02/25/18 03:11 98.1 71 16 94/52 (66) 89 Room Air 02/23/18 12:34 1.0 Intake and Output 02/25/18 07:00 Intake Total 1112 ml Output Total 1650 ml Balance -538 ml Intake Oral 1112 ml Output Urine Total 1650 ml # Bowel Movements 1 General Appearance: Alert, Awake Extremities: Warm, Other (R leg with decreased swelling and redness. Foot wrapped. No drainag visible.) Integumentary: Other (See above.) Psych: Appropriate Mood & Affect Result Diagram: 02/25/1853902/25/18539 Assessment and Plan Problems: (1) Cellulitis of right leg Status: Acute Assessment & Plan: He did present with erythema and blistering to the right leg/foot. He was initially started on vancomycin and Primaxin, but the vancomycin was discontinued in favor of clindamycin. He has now been converted to oral treatment with clindamycin. His symptoms/findings have been improving an d CRP has been decreasing. No changes. (2) Cerebral palsy Status: Chronic Assessment & Plan: He has significant quadriparesis and uses wheelchair for mobility. He does have an implanted Baclofen pump for spasticity. It is due for refill soon, but we do not have any way to refill it at this facility. If we are unable to get him to a facility for refill, we will start oral baclofen. His pump will start alarming at low level on Sunday 02/25 - he will have approximately 4 days of baclofen left after low level alarm starts. Therapy has recommended ongoing treatment/rehab. Arrangements are being made by social work for [facility] and wound care. (3) GERD (gastroesophageal reflux disease) Status: Chronic Assessment & Plan: He is on chronic treatment with ranitidine. (4) Depression Status: Chronic Assessment & Plan: He is currently on Viibryd (not on formulary). (5) BPH (benign prostatic hypertrophy) Status: Chronic Assessment & Plan: Continue Flomax. (6) ADEOLA (obstructive sleep apnea) Status: Chronic Assessment & Plan: He uses a dental appliance and is not currently on CPAP/BiPAP. Time Spent on Plan of Care: < 30 min Exam Sepsis Risk: No Definite Risk CRYSTAL CUETO MD Feb 25, 2018 08:06
[2018-02-25 08:34] VITALS: BP 104/50
[2018-02-25] MEDS: RANITIDINE HCL 150 MG TAB PO SCH ×2 (08:54→21:23)
[2018-02-25] MEDS: POTASSIUM CHL 10 MEQ TABCR PO SCH ×2 (08:54→17:29)
[2018-02-25] MEDS: VILAZODONE HCL 40 MG TAB PO SCH (08:54)
[2018-02-25] MEDS: LACTOBACILLUS ACIDOPHILUS TAB PO SCH ×2 (08:55→17:29)
[2018-02-25] MEDS: MODAFINIL 100 MG TAB PO SCH (08:55)
[2018-02-25] MEDS: guaiFENesin 600 MG TABCR PO SCH ×2 (08:55→21:23)
[2018-02-25] MEDS: ENOXAPARIN 40 MG/0.4ML SYR SC SCH (08:55)
[2018-02-25] MEDS: OXYBUTYNIN CHL XL 5 MG TABCR PO SCH (08:55)
[2018-02-25] MEDS: CLINDAMYCIN 150 MG CAP PO SCH ×4 (08:55→21:22)
[2018-02-25] MEDS: TAMSULOSIN HCL 0.4 MG CAP PO SCH (08:55)
[2018-02-25] MEDS: DOCUSATE SODIUM 100 MG CAP PO SCH ×2 (08:55→21:00)
[2018-02-25] MEDS: NYSTATIN 100,000 U/GM PWD 15GM TP SCH ×2 (08:56→21:23)
[2018-02-25 12:00] VITALS: BP 101/59
[2018-02-25 14:42] VITALS: BP 110/60
[2018-02-25 21:36] VITALS: BP 109/52
[2018-02-25] MEDS: traMADol 50 MG TAB PO PRN (23:29)
[2018-02-26 03:12] VITALS: BP 109/53
[2018-02-26 05:37] LABS: PLATELET COUNT, AUTOMATED 477 K/uL (150-450)
[2018-02-26 06:56] VITALS: BP 103/70
[2018-02-26] MEDS: DOCUSATE SODIUM 100 MG CAP PO SCH (09:00)
[2018-02-26 09:21] VITALS: BP 104/55
[2018-02-26] MEDS: POTASSIUM CHL 10 MEQ TABCR PO SCH (09:23)
[2018-02-26] MEDS: NYSTATIN 100,000 U/GM PWD 15GM TP SCH (09:23)
[2018-02-26] MEDS: LACTOBACILLUS ACIDOPHILUS TAB PO SCH (09:23)
[2018-02-26] MEDS: TAMSULOSIN HCL 0.4 MG CAP PO SCH (09:24)
[2018-02-26] MEDS: OXYBUTYNIN CHL XL 5 MG TABCR PO SCH (09:24)
[2018-02-26] MEDS: guaiFENesin 600 MG TABCR PO SCH (09:25)
[2018-02-26] MEDS: ENOXAPARIN 40 MG/0.4ML SYR SC SCH (09:25)
[2018-02-26] MEDS: RANITIDINE HCL 150 MG TAB PO SCH (09:25)
[2018-02-26] MEDS: VILAZODONE HCL 40 MG TAB PO SCH (09:25)
[2018-02-26] MEDS: CLINDAMYCIN 150 MG CAP PO SCH ×2 (09:33→13:00)
[2018-02-26] MEDS: MODAFINIL 100 MG TAB PO SCH (09:35)
--- NOTE | 2018-02-26 10:20 | Hospitalist Progress Note ---
Subjective Progress Notes Subjective He reports less pain to his foot. He had no acute events overnight. Patient Complains of: Cardiovascular: No: Chest Pain Respiratory: No: Shortness of Breath Physical Exam Vital Signs Date Time Temp Pulse Resp B/P (MAP) Pulse Ox O2 Delivery O2 Flow Rate FiO2 02/26/18 09:21 98.4 84 20 104/55 (71) 90 Room Air 02/23/18 12:34 1.0 Intake and Output 02/26/18 00:59 Intake Total 1630 ml Output Total 1750 ml Balance -120 ml Intake Oral 1630 ml Output Urine Total 1750 ml # Bowel Movements 1 General Appearance: Alert, Awake, No Acute Distress, Afebrile Neuro: No Gross deficits Cardiovascular: Regular Rate and Rhythm Respiratory: No Respiratory Distress, Clear to Auscultation GI: Soft and Non-Tender Extremities: Warm, Perfused Psych: Alert & Oriented X3, Appropriate Mood & Affect Result Diagram: 02/26/1853002/26/18530 Assessment and Plan Problems: (1) Cellulitis of right leg Status: Acute Assessment & Plan: He did present with erythema and blistering to the right leg/foot. He was initially started on vancomycin and Primaxin, but the vancomycin was discontinued in favor of clindamycin. He has now been converted to oral treatment with clindamycin. His symptoms/findings have been improving and CRP has been decreasing. No changes. (2) Cerebral palsy Status: Chronic Assessment & Plan: He has significant quadriparesis and uses wheelchair for mobility. He does have an implanted Baclofen pump for spasticity. It is due for refill soon, but we do not have any way to refill it at this facility. If we are unable to get him to a facility for refill, we will start oral baclofen. His pump will start alarming at low level on Sunday 02/25 - he will have approximately 4 days of baclofen left after low level alarm starts. Therapy has recommended ongoing treatment/rehab. Arrangements are being made by social work for [facility] and wound care. (3) GERD (gastroesophageal reflux disease) Status: Chronic Assessment & Plan: He is on chronic treatment with ranitidine. (4) Depression Status: Chronic Assessment & Plan: He is currently on Viibryd (not on formulary). (5) BPH (benign prostatic hypertrophy) Status: Chronic Assessment & Plan: Continue Flomax. (6) ADEOLA (obstructive sleep apnea) Status: Chronic Assessment & Plan: He uses a dental appliance and is not currently on CPAP/BiPAP. Exam Sepsis Risk: No Definite Risk CHRISTOPH POWER Feb 26, 2018 10:20
[2018-02-26 12:00] VITALS: BP 93/64
[2018-02-26] MEDS ORDERED: TRAM-420 PO (13:33)
--- NOTE | 2018-02-26 13:37 | Hospitalist Depart ---
Discharge Summary Reason for Hosp/Final Diag: (1) Cellulitis of right leg Status: Acute Hospital Course & Plan: He did present with erythema and blistering to the right leg/foot. He was initially started on vancomycin and Primaxin, but the vancomycin was discontinued in favor of clindamycin. He was converted to oral treatment with clindamycin. His symptoms/findings have been improving and CRP has been decreasing. He has completed 13 days Antibiotic treatment. Therapy Complete. (2) Cerebral palsy Status: Chronic Hospital Course & Plan: He has significant quadriparesis and uses wheelchair for mobility. He does have an implanted Baclofen pump for spasticity. It is due for refill soon, but we do not have any way to refill it at this facility. His pump will start alarming at low level on Sunday 02/25 - he will have approximately 4 days of baclofen left after low level alarm starts. Therapy has recommended ongoing treatment/rehab. He will be transferred to [facility] facility. They have agreed to facilitate Baclofen pump refill. (3) GERD (gastroesophageal reflux disease) Status: Chronic Hospital Course & Plan: He is on chronic treatment with ranitidine. (4) Depression Status: Chronic Hospital Course & Plan: He is currently on Viibryd (not on formulary). (5) BPH (benign prostatic hypertrophy) Status: Chronic Hospital Course & Plan: Continue Flomax. (6) ADEOLA (obstructive sleep apnea) Status: Chronic Hospital Course & Plan: He uses a dental appliance and is not currently on CPAP/BiPAP. Departure Latest Vital Signs Vital Signs 02/23/18 02/26/18 12:34 12:00 Temp 97.8 Pulse 73 Resp 16 B/P (MAP) 93/64 (74) Pulse Ox 94 O2 Delivery Room Air O2 Flow Rate 1.0 Weight (Pounds): 212 Weight (Ounces): 1.0 Result Diagram: 02/26/1853002/26/18530 Condition: Improved Discharge: Rehab Facility PT/OT Follow Up For: PT For Strengthening, PT Evaluation and Treat, ST Evaluation and Treat, OT Evaluation and Treat Discharge Instructions Home Meds Active Scripts Tramadol Hcl (TRAMADOL HCL) 50 Mg Tablet, 50 MG PO Q6H PRN for PAIN, #56 TAB Prov:CHRISTOPH POWER SCREW DOWN 02/26/18 Terbinafine Hcl (ATHLETE'S FOOT) 24 Gm Cream..g., 0 GM TP BID, #1 TUBE Prov:CRYSTAL CUETO MD 04/16/17 Reported Medications Docusate Sodium (COLACE) 100 Mg Capsule, 100 MG PO BID, #30 CAPSULE 10/05/17 Modafinil (MODAFINIL) 100 Mg Tablet, 150 MG PO PRN 09/22/17 Calcium Carbonate (CALCIUM) 500 Mg Tablet, 2400 MG PO QDAY 06/12/16 Multivitamin (MULTI VITAMIN DAILY) 1 Each Tablet, 1 EACH PO QDAY 06/12/16 Oxybutynin Chloride (OXYBUTYNIN CHLORIDE ER) 10 Mg Tab.er.24, 10 MG PO BID, TAB.SR 06/12/16 Tamsulosin Hcl (FLOMAX) 0.4 Mg Cap.er.24h, 0.4 MG PO DAILY 02/23/15 Baclofen (LIORESAL INTRATHECAL) 50 Mcg/1 Ml Ampul, 165 MCG IT DAILY Continuous Infusion via inserted pump 02/23/15 Vilazodone Hydrochloride (VIIBRYD) 40 Mg Tablet, 40 MG PO QDAY 02/21/12 Al Hydrox/Mg Trisilicate (Gaviscon) 1 Ea Chew, 4 EA PO QHS 02/21/12 Acetaminophen/Diphenhydramine (TYLENOL PM (OR EQUIV) 500/25 MG (PATIENT OWN) 1 Each Tablet, 1 TAB PO QHS PRN 325/25 02/20/12 Ranitidine Hcl (Zantac) 150 Mg Tab, 150 MG PO BID, 0 Refills 01/26/10 Discontinued Reported Medications Naproxen (NAPROSYN) 250 Mg Tablet, 440 MG PO QAM, TAB takes 2 220mg tab q am 02/23/15 Diet: Regular Activity: As Tolerated Copies to: SHANNEN MILLIGAN MD ; Venous Thromboembolism Antithrombotics Is Pt On Any Antithrombotics?: Yes CHRISTOPH POWER SCREW DOWN Feb 26, 2018 13:37
[2018-02-26] MEDS: traMADol 50 MG TAB PO PRN (15:36)
== END 2018-02-26 15:45 | DRG 602 ==
LOC: ER 22:50 → MED 02-14 04:47
PROVIDERS: ADMIT Internal Medicine; ATTEND Internal Medicine
PROC: 02HV33Z Insertion of Infusion Device into Superior Vena Cava, Percutaneous Approach (ICD-10-PCS; principal; 2018-02-14)
PROC: B548ZZA Ultrasonography of Superior Vena Cava, Guidance (ICD-10-PCS; 2018-02-14)
PROC: 0HDMXZZ Extraction of Right Foot Skin, External Approach (ICD-10-PCS; 2018-02-14)
DX: L03.115 Cellulitis of right lower limb (principal); G80.0 Spastic quadriplegic cerebral palsy; K21.9 Gastro-esophageal reflux disease without esophagitis; G47.33 Obstructive sleep apnea (adult) (pediatric); N40.0 Benign prostatic hyperplasia without lower urinary tract symptoms; F32.9 Major depressive disorder, single episode, unspecified; Z91.040 Latex allergy status; Z88.8 Allergy status to other drugs, medicaments and biological substances; Z99.3 Dependence on wheelchair; Z97.8 Presence of other specified devices; Z23 Encounter for immunization
CPT/HCPCS: 36415; 36569; 36600; 76937; 80202; 81001; 82040; 82247; 82310; 82374; 82435; 82565; 82947; 84075; 84132; 84155; 84295; 84450; 84460; 84520; 85025; 85651; 86140; 87040; 87070; 87088; 90471; 90674; 96365; 96367; 97162; 97166; 97597; 99285; C1751; J0743; J1650; J3370; J3490; J7030; J7050; Q0163

== ENCOUNTER 2018-05-28 00:38 | Inpatient (IN) | payer MEDICARE, OTHER ==
[~2018-05-28] VITALS: Ht 177.8 cm; Wt 90.7 kg
[~2018-05-28 00:38] MED LIST changes: -PENI-24 PO
--- NOTE | 2018-05-28 00:56 | ER Report ---
History and Physical Time Seen By MD: 00:56 Hx. of Stated Complaint: PT PRESENTS VIA EMS. PT REPORTS LOWER BACK PAIN. HPI/ROS CHIEF COMPLAINT: fever, low back pain HISTORY OF PRESENT ILLNESS: This is a 58 year old male. He started having pain in the middle of the lower back yesterday. Worsening tonight. Slight radiation towards the right hip. He does have some chronic pain from the cerebal palsy. He is having fevers and chills tonight as well. Has some skin breakdown in the mid inner thigh/scrotal area and some redness of the right lower extremity. EMS provided 100mcg IV Fentanyl en route. He is very groggy at this time and some hypoxia, seems due to the medicine. Has had no sore throat, cough, shortness of breath, runny nose. Mild nausea, but no vomiting. No chest pains. No abdominal pain. Bowels have been working well, no diarrhea. He thought it might be a Baclofen pump problem. Allergies: Coded Allergies: latex (Verified Allergy, Severe, 05/28/18) sertraline (Verified Allergy, Severe, RASH, 05/28/18) codeine (Verified Adverse Reaction, Intermediate, NAUSEA/VOMITING, 05/28/18) Home Meds Reported Medications Docusate Sodium (COLACE) 100 Mg Capsule, 100 MG PO BID, #30 CAPSULE 10/05/17 Modafinil (MODAFINIL) 100 Mg Tablet, 150 MG PO PRN 09/22/17 Calcium Carbonate (CALCIUM) 500 Mg Tablet, 2000 MG PO QDAY 06/12/16 Multivitamin (MULTI VITAMIN DAILY) 1 Each Tablet, 1 EACH PO QDAY 06/12/16 Oxybutynin Chloride (OXYBUTYNIN CHLORIDE ER) 10 Mg Tab.er.24, 10 MG PO BID, TAB.SR 06/12/16 Tamsulosin Hcl (FLOMAX) 0.4 Mg Cap.er.24h, 0.4 MG PO DAILY 02/23/15 Baclofen (LIORESAL INTRATHECAL) 50 Mcg/1 Ml Ampul, 165 MCG IT DAILY Continuous Infusion via inserted pump 02/23/15 Vilazodone Hydrochloride (VIIBRYD) 40 Mg Tablet, 40 MG PO QDAY 02/21/12 Al Hydrox/Mg Trisilicate (Gaviscon) 1 Ea Chew, 4 EA PO QHS 02/21/12 Acetaminophen/Diphenhydramine (TYLENOL PM (OR EQUIV) 500/25 MG (PATIENT OWN) 1 Each Tablet, 1 TAB PO QHS PRN 325/25 02/20/12 Ranitidine Hcl (Zantac) 150 Mg Tab, 150 MG PO 1-2XD, 0 Refills 01/26/10 Discontinued Scripts Tramadol Hcl (TRAMADOL HCL) 50 Mg Tablet, 50 MG PO Q6H PRN for PAIN, #56 TAB Prov:CHRISTOPH POWER PATTERN CUTTER 02/26/18 Terbinafine Hcl (ATHLETE'S FOOT) 24 Gm Cream..g., 0 GM TP BID, #1 TUBE Prov:CRYSTAL CUETO MD 04/16/17 Reviewed Nurses Notes: Yes Hx Smoking: No Exposure to Second Hand Smoke?: No Hx Substance Use Disorder: No Hx Alcohol Use: No Constitutional Vital Sign - Last 24 Hours 05/28/18 05/28/18 05/28/18 05/28/18 00:45 00:48 00:53 01:00 Temp 103.1 Pulse 126 132 Resp 18 18 B/P (MAP) 138/74 138/74 (95) 134/66 (88) Pulse Ox 59 96 O2 Delivery Room Air 05/28/18 05/28/18 05/28/18 05/28/18 01:08 01:23 01:30 01:38 Pulse 137 137 124 Resp 11 12 26 B/P (MAP) 130/75 (93) Pulse Ox 96 91 05/28/18 05/28/18 05/28/18 05/28/18 01:53 02:00 02:05 02:20 Pulse 116 122 113 Resp 22 B/P (MAP) 120/78 (92) Pulse Ox 95 05/28/18 05/28/18 05/28/18 05/28/18 03:00 03:04 03:09 03:24 Pulse 107 102 106 B/P (MAP) 122/64 (83) Pulse Ox 91 94 05/28/18 05/28/18 05/28/18 05/28/18 03:30 03:39 03:54 03:58 Temp 98.2 Pulse 104 113 B/P (MAP) 126/70 (88) Pulse Ox 94 94 05/28/18 05/28/18 05/28/18 05/28/18 03:59 04:00 04:14 04:29 Pulse 115 102 B/P (MAP) 136/69 (91) Pulse Ox 92 97 98 05/28/18 05/28/18 05/28/18 05/28/18 04:30 04:44 04:51 04:59 Pulse 102 101 B/P (MAP) 129/81 (97) Pulse Ox 97 97 O2 Flow Rate 3.0 05/28/18 05/28/18 05/28/18 05:00 05:14 05:19 Pulse 111 109 B/P (MAP) 118/64 (82) Pulse Ox 95 Physical Exam General Appearance: The patient is alert, but somewhat groggy. No immediate need for airway protection. No acute distress, but is ill appearing. Eyes: Pupils are equal, round. Reactive to light. No pallor, injection or icterus. Extraocular movements are intact. ENT: Mucous membranes are moist. Normal oral mucosa. Posterior oropharynx is no rmal. Neck: Supple and non tender. Respiratory: Lungs are clear to auscultation. Cardiovascular: Regular rate and rhythm. No murmurs, gallops or rubs. Normal capillary refill. Has chronic lower extremity edema. Gastrointestinal: Abdomen is soft and non tender. Nondistended. Normal active bowel sounds. No CVA tenderness. Genitourinary: Has some skin breakdown in the scrotal area and in between his legs, worse on the left inner. Neurological: Alert and oriented x3. Skin: Warm and dry. Some redness and warmth in the right foot and lateral lower leg. Musculoskeletal: Extremities are nontender. Tender midline lumbar area and somewhat to the right. DIFFERENTIAL DIAGNOSIS: After history and physical exam, differential diagnosis was considered for patient with fever, some signs of cellulitis and breakdown in the groin area in between the legs as well as the right lower extremity. He also is having low back pain which is new, uncertain etiology. We'll look for a cause that might explain all of these symptoms together. Medical Decision Making Data Points Result Diagram: 05/28/18 0148 05/28/18 0148 Laboratory Hematology Test 05/28/18 01:48 05/28/18 02:56 Red Blood Count 5.00 M/uL (4.00-5.60) Mean Corpuscular Volume 83.9 fL (80.0-96.0) Mean Corpuscular Hemoglobin 28.0 pg (26.0-33.0) Mean Corpuscular Hemoglobin Concent 33.4 g/dL (32.0-36.0) Red Cell Distribution Width 15.1 % (11.5-14.5) Mean Platelet Volume 7.7 fL (7.2-11.1) Neutrophils (%) (Auto) 92.1 % (39.4-72.5) Lymphocytes (%) (Auto) 2.7 % (17.6-49.6) Monocytes (%) (Auto) 5.0 % (4.1-12.4) Eosinophils (%) (Auto) 0.1 % (0.4-6.7) Basophils (%) (Auto) 0.1 % (0.3-1.4) Nucleated RBC Relative Count (auto) 0.0 /100WBC Neutrophils # (Auto) 9.2 K/uL (2.0-7.4) Lymphocytes # (Auto) 0.3 K/uL (1.3-3.6) Monocytes # (Auto) 0.5 K/uL (0.3-1.0) Eosinophils # (Auto) 0.0 K/uL (0.0-0.5) Basophils # (Auto) 0.0 K/uL (0.0-0.1) Nucleated RBC Absolute Count (auto) 0.00 K/uL Erythrocyte Sedimentation Rate 21 mm/HOUR (0-20) Sodium Level 140 mmol/L (137-145) Potassium Level 4.0 mmol/L (3.5-5.0) Chloride Level 107 mmol/L (98-107) Carbon Dioxide Level 24 mmol/L (22-30) Blood Urea Nitrogen 29 mg/dl (9-21) Creatinine 1.10 mg/dl (0.66-1.25) Glomerular Filtration Rate Calc > 60.0 Random Glucose 109 mg/dl (75-110) Lactate 1.4 mmol/L (0.7-2.1) Calcium Level 9.3 mg/dl (8.4-10.2) Total Bilirubin 0.3 mg/dl (0.2-1.3) Aspartate Amino Transf (AST/SGOT) 17 U/L (0-35) Alanine Aminotransferase (ALT/SGPT) 27 U/L (0-56) Alkaline Phosphatase 104 U/L (0-126) C-Reactive Protein 2.7 mg/dl (<1.0) Total Protein 6.4 g/dl (6.3-8.2) Albumin 3.9 g/dl (3.5-5.0) Urine Color Yellow Urine Clarity Clear Urine pH 7.0 pH (4.8-9.5) Urine Specific [place] 1.031 Urine Protein Negative mg/dL (NEGATIVE) Urine Glucose (UA) Negative mg/dL (NEGATIVE) Urine Ketones Negative mg/dL (NEGATIVE) Urine Blood Negative (NEGATIVE) Urine Nitrite Negative (NEGATIVE) Urine Bilirubin Negative (NEGATIVE) Urine Urobilinogen Negative mg/dL (0.2-1.9) Urine Leukocyte Esterase Negative (NEGATIVE) Urine RBC <1 /HPF (0-2/HPF) Urine WBC <1 /HPF (0-5/HPF) Urine Squamous Epithelial Cells None /LPF (</=FEW) Urine Bacteria Negative /HPF (NONE-FEW) Urine Mucus None /HPF (NONE-FEW) Chemistry Test 05/28/18 01:48 05/28/18 02:56 White Blood Count 10.0 k/uL (4.5-11.0) Red Blood Count 5.00 M/uL (4.00-5.60) Hemoglobin 14.0 g/dL (14.0-18.0) Hematocrit 41.9 % (42.0-52.0) Mean Corpuscular Volume 83.9 fL (80.0-96.0) Mean Corpuscular Hemoglobin 28.0 pg (26.0-33.0) Mean Corpuscular Hemoglobin Concent 33.4 g/dL (32.0-36.0) Red Cell Distribution Width 15.1 % (11.5-14.5) Platelet Count 164 K/uL (150-450) Mean Platelet Volume 7.7 fL (7.2-11.1) Neutrophils (%) (Auto) 92.1 % (39.4-72.5) Lymphocytes (%) (Auto) 2.7 % (17.6-49.6) Monocytes (%) (Auto) 5.0 % (4.1-12.4) Eosinophils (%) (Auto) 0.1 % (0.4-6.7) Basophils (%) (Auto) 0.1 % (0.3-1.4) Nucleated RBC Relative Count (auto) 0.0 /100WBC Neutrophils # (Auto) 9.2 K/uL (2.0-7.4) Lymphocytes # (Auto) 0.3 K/uL (1.3-3.6) Monocytes # (Auto) 0.5 K/uL (0.3-1.0) Eosinophils # (Auto) 0.0 K/uL (0.0-0.5) Basophils # (Auto) 0.0 K/uL (0.0-0.1) Nucleated RBC Absolute Count (auto) 0.00 K/uL Erythrocyte Sedimentation Rate 21 mm/HOUR (0-20) Glomerular Filtration Rate Calc > 60.0 Lactate 1.4 mmol/L (0.7-2.1) Calcium Level 9.3 mg/dl (8.4-10.2) Total Bilirubin 0.3 mg/dl (0.2-1.3) Aspartate Amino Transf (AST/SGOT) 17 U/L (0-35) Alanine Aminotransferase (ALT/SGPT) 27 U/L (0-56) Alkaline Phosphatase 104 U/L (0-126) C-Reactive Protein 2.7 mg/dl (<1.0) Total Protein 6.4 g/dl (6.3-8.2) Albumin 3.9 g/dl (3.5-5.0) Urine Color Yellow Urine Clarity Clear Urine pH 7.0 pH (4.8-9.5) Urine Specific [place] 1.031 Urine Protein Negative mg/dL (NEGATIVE) Urine Glucose (UA) Negative mg/dL (NEGATIVE) Urine Ketones Negative mg/dL (NEGATIVE) Urine Blood Negative (NEGATIVE) Urine Nitrite Negative (NEGATIVE) Urine Bilirubin Negative (NEGATIVE) Urine Urobilinogen Negative mg/dL (0.2-1.9) Urine Leukocyte Esterase Negative (NEGATIVE) Urine RBC <1 /HPF (0-2/HPF) Urine WBC <1 /HPF (0-5/HPF) Urine Squamous Epithelial Cells None /LPF (</=FEW) Urine Bacteria Negative /HPF (NONE-FEW) Urine Mucus None /HPF (NONE-FEW) Urinalysis Test 05/28/18 02:56 Urine Color Yellow Urine Clarity Clear Urine pH 7.0 pH (4.8-9.5) Urine Specific [place] 1.031 Urine Protein Negative mg/dL (NEGATIVE) Urine Glucose (UA) Negative mg/dL (NEGATIVE) Urine Ketones Negative mg/dL (NEGATIVE) Urine Blood Negative (NEGATIVE) Urine Nitrite Negative (NEGATIVE) Urine Bilirubin Negative (NEGATIVE) Urine Urobilinogen Negative mg/dL (0.2-1.9) Urine Leukocyte Esterase Negative (NEGATIVE) Urine RBC <1 /HPF (0-2/HPF) Urine WBC <1 /HPF (0-5/HPF) Urine Squamous Epithelial Cells None /LPF (</=FEW) Urine Bacteria Negative /HPF (NONE-FEW) Urine Mucus None /HPF (NONE-FEW) Microbiology Microbiology Date/Time Source Procedure Growth Status 05/28/18 01:56 Blood Blood Culture - Final Resulted 05/28/18 01:56 Blood Blood Culture - Preliminary NO GROWTH SO FAR, SET LATE. REINCUBATED Resulted 05/28/18 01:48 Blood Blood Culture - Final Resulted 05/28/18 01:48 Blood Blood Culture - Preliminary NO GROWTH SO FAR, SET LATE. REINCUBATED Resulted EKG/Imaging Imaging PORTABLE CHEST: Indication: Pain. Technique: 2 frontal images were obtained. Comparison: None available. Skeletal and soft tissue structures: There is moderate levoscoliosis in the thoracic spine. No fracture or acute skeletal deformity is identified. Heart and mediastinum: Within normal limits. Lung fernandez: Well-expanded. No focal consolidation or volume loss is identified. There is no vascular congestion. Pleural spaces: Unremarkable. Impression: No acute process. Report Dictated By: Saad Hill MD at 05/28/2018 3:[address] of the abdomen and pelvis with contrast: Indication: Abdominal pain and back pain. Technique: Helical CT was performed through the abdomen and pelvis following IV contrast enhancement with 75 cc of Isovue-370. Multiplanar reconstructions are reviewed. One of the following dose optimization techniques was utilized in the performance of this exam: Automated exposure control; adjustment of the mA and/or kV according to the patient's size; or use of an iterative reconstruction technique. Specific details can be referenced in the facility's radiology CT exam operational policy. Comparison: 10/05/2017 Lower lung fernandez: No parenchymal or pleural abnormality is identified. Liver: Unremarkable and unchanged, allowing for some streak artifact. The venous structures are unremarkable. Gallbladder/biliary tree: There are surgical clips related to prior cholecystectomy. The bile ducts are not dilated. Pancreas: Normal in size, shape, and density. There are no signs of peripancreatic inflammation or fluid. Spleen: Normal in size, shape, and density. A tiny accessory spleen is incidentally noted. Adrenal glands: Within normal limits. Kidneys/urinary bladder: The kidneys are normal in size, shape, and density. A small peripelvic cyst is present in the right kidney. There are no signs of urinary tract calculus or obstructive uropathy. The bladder appears homogeneous and unremarkable. Intestinal structures: Unremarkable, as visualized. There are no signs of obstruction or focal inflammatory changes. Pelvis: Unremarkable. Aorta and vascular structures: There is stable mild calcification. No evidence of aneurysm. Ascites or fluid collections: None seen. Skeletal structures: There is stable scoliosis and degenerative changes in the spine. No acute skeletal deformity is identified. A neurostimulator is present in the lower thoracic and upper lumbar spinal canal, without significant change. Impression: No acute process or significant change is identified in the abdomen or pelvis. Report Dictated By: Saad Hill MD at 05/28/2018 3:[address] of the lumbar spine with contrast: Indication: Back pain. Technique: Helical CT was performed through the lumbar spine following IV contrast enhancement with 75 cc of Isovue-370. Axial, coronal, and sagittal reconstructions are reviewed. One of the following dose optimization techniques was utilized in the performance of this exam: Automated exposure control; adjustment of the mA and/or kV according to the patient's size; or use of an iterative reconstruction technique. Specific details can be referenced in the facility's radiology CT ex am operational policy. Comparison: None available. Findings: There is no evidence of fracture, compression, subluxation, or other acute deformity. There is minimal scoliosis. There is mild marginal osteophyte formation. There is no significant disc space narrowing. There is uniform mineralization. A neurostimulator lead enters the spinal canal between the L2 and L3 spinous processes and extends cephalad to the level of T11. No paraspinal fluid collection or soft tissue abnormality is identified. IMPRESSION: No evidence of acute skeletal or soft tissue abnormality. Report Dictated By: Saad Hill MD at 05/28/2018 3:37 AM ED Course/Re-evaluation Clinical Indication for ER IV: Hydration, IV Access ED Course After initial evaluation, blood work was obtained including blood cultures. Voided urine with urine culture. No sign of urinary infection. Chest x-ray was negative. CT scans of the abdomen and pelvis as well as lumbar spine were also negative for acute process. Suspect cellulitis as the cause, but cannot fully explain the back pain. Discussed with Dr. Cruz who came to the ER for further evaluation and accepted for admission to the hospital. Decision to Disposition Date: May 28, 2018 Decision to Disposition Time: 05:00 Depart Departure Latest Vital Signs Vital Signs Date Time Temp Pulse Resp B/P (MAP) Pulse Ox O2 Delivery O2 Flow Rate FiO2 05/28/18 05:19 109 05/28/18 05:14 95 05/28/18 05:00 118/64 (82) 05/28/18 04:51 3.0 05/28/18 03:58 98.2 05/28/18 01:53 22 05/28/18 00:45 Room Air Impression: Primary Impression: Cellulitis of right leg Additional Impression: Cerebral palsy Condition: Improved Disposition: Admitted from ER Referrals: SHANNEN MILLIGAN MD (PCP) Problem Qualifiers Additional Impression: Cerebral palsy Cerebral palsy type: unspecified type Qualified Codes: G80.9 - Cerebral palsy, unspecified ALEXANDRO PARDO MD May 28, 2018 00:56
[2018-05-28] MEDS ORDERED: ACETAMINOPHEN 500 MG TAB PO ONE (01:15)
[2018-05-28] MEDS ORDERED: NS(*) 0.9% 1000 ML BAG 1,000 ML IV ONE (01:15)
[2018-05-28 02:09] LABS: PLATELET COUNT, AUTOMATED 164 K/uL (150-450)
[2018-05-28] MEDS ORDERED: IOPAMIDOL 76% 100 ML INFUS BTL 100 ML ONE (02:19)
--- NOTE | 2018-05-28 03:29 | RADIOLOGY IMAGING REPORT ---
FACILITY: [facility] - [place] PATIENT NAME: Ramu Carney : 1960 MR: [id number] V: [id number] EXAM DATE: ORDERING PHYSICIAN: ALEXANDRO PARDO TECHNOLOGIST: Location: [facility] Patient: Ramu Carney : 1960 Visit/Account:[id number] Date of Sevice: 05/28/2018 CT of the abdomen and pelvis with contrast: Indication: Abdominal pain and back pain. Technique: Helical CT was performed through the abdomen and pelvis following IV contrast enhancement with 75 cc of Isovue-370. Multiplanar reconstructions are reviewed. One of the following dose optimization techniques was utilized in the performance of this exam: Autom ated exposure control; adjustment of the mA and/or kV according to the patient's size; or use of an i terative reconstruction technique. Specific details can be referenced in the facility's radiology CT exam operational policy. Comparison: 10/05/2017 Lower lung fernandez: No parenchymal or pleural abnormality is identified. Liver: Unremarkable and unchanged, allowing for some streak artifact. The venous structures are unrem arkable. Gallbladder/biliary tree: There are surgical clips related to prior cholecystectomy. The bile ducts a re not dilated. Pancreas: Normal in size, shape, and density. There are no signs of peripancreatic inflammation or fl uid. Spleen: Normal in size, shape, and density. A tiny accessory spleen is incidentally noted. Adrenal glands: Within normal limits. Kidneys/urinary bladder: The kidneys are normal in size, shape, and density. A small peripelvic cyst is present in the right kidney. There are no signs of urinary tract calculus or obstructive uropathy. The bladder appears homogeneous and unremarkable. Intestinal structures: Unremarkable, as visualized. There are no signs of obstruction or focal inflam matory changes. Pelvis: Unremarkable. Aorta and vascular structures: There is stable mild calcification. No evidence of aneurysm. Ascites or fluid collections: None seen. Skeletal structures: There is stable scoliosis and degenerative changes in the spine. No acute skelet al deformity is identified. A neurostimulator is present in the lower thoracic and upper lumbar spina l canal, without significant change. Impression: No acute process or significant change is identified in the abdomen or pelvis. Report Dictated By: Saad Hill MD at 05/28/2018 3:13 AM Report E-Signed By: Saad Hill MD at 05/28/2018 3:24 AM WSN:[id number]
--- NOTE | 2018-05-28 03:30 | RADIOLOGY IMAGING REPORT ---
FACILITY: [facility] - [place] PATIENT NAME: Ramu Carney : 1960 MR: [id number] V: [id number] EXAM DATE: ORDERING PHYSICIAN: ALEXANDRO PARDO TECHNOLOGIST: Location: [facility] [place] Patient: Ramu Carney : 1960 Visit/Account:[id number] Date of Sevice: 05/28/2018 PORTABLE CHEST: Indication: Pain. Technique: 2 frontal images were obtained. Comparison: None available. Skeletal and soft tissue structures: There is moderate levoscoliosis in the thoracic spine. No fractu re or acute skeletal deformity is identified. Heart and mediastinum: Within normal limits. Lung fernandez: Well-expanded. No focal consolidation or volume loss is identified. There is no vascular congestion. Pleural spaces: Unremarkable. Impression: No acute process. Report Dictated By: Saad Hill MD at 05/28/2018 3:24 AM Report E-Signed By: Saad Hill MD at 05/28/2018 3:26 AM WSN:[id number]
--- NOTE | 2018-05-28 03:47 | RADIOLOGY IMAGING REPORT ---
FACILITY: [facility] - [place], [place] PATIENT NAME: Ramu Carney : 1960 MR: [id number] V: [id number] EXAM DATE: ORDERING PHYSICIAN: ALEXANDRO PARDO TECHNOLOGIST: Location: [facility] [place] Patient: Ramu Carney : 1960 Visit/Account:[id number] Date of Sevice: 05/28/2018 CT of the lumbar spine with contrast: Indication: Back pain. Technique: Helical CT was performed through the lumbar spine following IV contrast enhancement with 7 5 cc of Isovue-370. Axial, coronal, and sagittal reconstructions are reviewed. One of the following dose optimization techniques was utilized in the performance of this exam: Autom ated exposure control; adjustment of the mA and/or kV according to the patient's size; or use of an i terative reconstruction technique. Specific details can be referenced in the facility's radiology CT exam operational policy. Comparison: None available. Findings: There is no evidence of fracture, compression, subluxation, or other acute deformity. There is minimal scoliosis. There is mild marginal osteophyte formation. There is no significant disc spac e narrowing. There is uniform mineralization. A neurostimulator lead enters the spinal canal between the L2 and L3 spinous processes and extends cephalad to the level of T11. No paraspinal fluid collection or soft tissue abnormality is identified. IMPRESSION: No evidence of acute skeletal or soft tissue abnormality. Report Dictated By: Saad Hill MD at 05/28/2018 3:37 AM Report E-Signed By: Saad Hill MD at 05/28/2018 3:43 AM WSN:[id number]
[2018-05-28] MEDS ORDERED: IBUPROFEN 800 MG TAB PO PRN (05:45)
[2018-05-28] MEDS ORDERED: INFLUENZA VIRUS VAC 0.5ML SYR IM ONLY ONE (05:45)
[2018-05-28] MEDS ORDERED: FLUSH 10 ML SYR IVP PRN (05:45)
[2018-05-28] MEDS ORDERED: VANCOMYCIN(*) 1 GM VIAL 2 GM in NS(*) 0.9% 500 ML BAG 500 ML IVPB ONE (05:45)
[2018-05-28] MEDS ORDERED: ONDANSETRON 4 MG/2 ML VIAL IVP PRN (05:45)
[2018-05-28] MEDS ORDERED: VANCOMYCIN 1 GM VIAL ONE (06:01)
[2018-05-28] MEDS ORDERED: WATER STERILE(*) 10 ML VIAL 20 ML ONE (06:02)
--- NOTE | 2018-05-28 06:07 | History & Physical ---
History of Present Illness Chief Complaint back pain, feeling ill History of Present Illness 58M presented with acute onset of back pain, PMHx significant for CP with quadriplegia, spasticity, intrathecal baclofen pump. Reports not feeling well a nd chills with increased back pain for last 24-48 hours. On arrival is lethargic in ER but likely related to fentanyl given by EMS. O2 saturation improved while in ER and level of alertness also increased. Work up was essentially negative other than left shift with normal range WBC count and documented fever of 103.1. He does have some mild erythema to bilateral feet and ankles, more concerning fo r infectious process is L gluteal fold wound with surrounding erythema. Given high fever and medical comorbidities he is being admitted for IV antibiotics and further evaluation. History Problems: (1) Cerebral palsy Status: Chronic (2) ADEOLA (obstructive sleep apnea) Status: Chronic (3) GERD (gastroesophageal reflux disease) Status: Chronic Home Meds Active Scripts Tramadol Hcl (TRAMADOL HCL) 50 Mg Tablet, 50 MG PO Q6H PRN for PAIN, #56 TAB Prov:CHRISTOPH [employer] OFFICER 02/26/18 Terbinafine Hcl (ATHLETE'S FOOT) 24 Gm Cream..g., 0 GM TP BID, #1 TUBE Prov:CRYSTAL CUETO MD 04/16/17 Reported Medications Docusate Sodium (COLACE) 100 Mg Capsule, 100 MG PO BID, #30 CAPSULE 10/05/17 Modafinil (MODAFINIL) 100 Mg Tablet, 150 MG PO PRN 09/22/17 Calcium Carbonate (CALCIUM) 500 Mg Tablet, 2400 MG PO QDAY 06/12/16 Multivitamin (MULTI VITAMIN DAILY) 1 Each Tablet, 1 EACH PO QDAY 06/12/16 Oxybutynin Chloride (OXYBUTYNIN CHLORIDE ER) 10 Mg Tab.er.24, 10 MG PO BID, TAB.SR 06/12/16 Tamsulosin Hcl (FLOMAX) 0.4 Mg Cap.er.24h, 0.4 MG PO DAILY 02/23/15 Baclofen (LIORESAL INTRATHECAL) 50 Mcg/1 Ml Ampul, 165 MCG IT DAILY Continuous Infusion via inserted pump 02/23/15 Vilazodone Hydrochloride (VIIBRYD) 40 Mg Tablet, 40 MG PO QDAY 02/21/12 Al Hydrox/Mg Trisilicate (Gaviscon) 1 Ea Chew, 4 EA PO QHS 02/21/12 Acetaminophen/Diphenhydramine (TYLENOL PM (OR EQUIV) 500/25 MG (PATIENT OWN) 1 Each Tablet, 1 TAB PO QHS PRN 325/25 02/20/12 Ranitidine Hcl (Zantac) 150 Mg Tab, 150 MG PO BID, 0 Refills 01/26/10 Allergies: Coded Allergies: sertraline (Verified Allergy, Severe, RASH, 05/28/18) latex (Verified Allergy, Mild, 05/28/18) codeine (Verified Adverse Reaction, Intermediate, NAUSEA/VOMITING, 05/28/18) Hx Smoking: No Exposure to Second Hand Smoke?: No Caffeine Intake: Soda Caffeine/Cups Per Day: 1-2 A DAY Hx Alcohol Use: No Hx Substance Use Disorder: No Social Drug Use: Never Review of Systems Cardiovascular: No Chest Pain, No Palpitations Respiratory: No Shortness of Breath Musculoskeletal: Pain Exam Vital Signs Vital Signs Date Time Temp Pulse Resp B/P (MAP) Pulse Ox O2 Delivery O2 Flow Rate FiO2 05/28/18 05:30 106/62 (77) 05/28/18 05:19 109 05/28/18 05:14 95 05/28/18 04:51 3.0 05/28/18 03:58 98.2 05/28/18 01:53 22 05/28/18 00:45 Room Air General Appearance: Alert, Awake, No Acute Distress Neuro: No Gross deficits (chronic extremity spasticity) ENT: Normal Cardiovascular: Normal Rhythm & Peripheral Pulses Respiratory: No Respiratory Distress, Clear to Auscultation GI: Abd Soft and Non-Tender : Normal Musculoskeletal: Other (lower back pain) Extremities: Soft and Non Tender, Warm, Pulses, Perfused, Edema (mild bilateral erythema) Integumentary: Other (L gluteal fold wound, surrounding erythema perineal erythema) Medical Decision Making Data Points Result Diagram: 05/28/1814705/28/18147 EKG / Imaging Monitor Interpretation: Sinus Tachycardia Assessment and Plan Problems: (1) Cellulitis of left leg Status: Acute Assessment & Plan: Febrile, L gluteal fold wound appears erythematous, no purulence, left shift with normal WBC. ESR and CRP are elevated however they have been elevated over last 1.5-2 years and are at their lowest levels currently. Consideration of baclofen pump as source however catheter has been in place for 6 years and the pump body was last changed 1 year ago making infection seem less likely in acute setting. Will begin empiric vancomycin, with plan to observe response. If afebrile for 24-48 hours could likely discharge with PO antibiotic and wound care. (2) Neurogenic bladder Status: Chronic Assessment & Plan: Not complete, has worsening symptoms of urgency at times. Does not self cath but has run out of oxybutynin. (3) GERD (gastroesophageal reflux disease) Status: Chronic Assessment & Plan: On chronic ranitidine, will cover with H2 jesus. (4) Cerebral palsy Status: Chronic Assessment & Plan: Incomplete quadriplegia, spasticity of all extremities. Has implanted baclofen pump. Venous Thromboembolism Antithrombotics Is Pt On Any Antithrombotics?: Yes Exam Sepsis Risk: Possible Sepsis Risk Problem Qualifiers (1) Cerebral palsy: Cerebral palsy type: unspecified type Qualified Codes: G80.9 - Cerebral palsy, unspecified ARTHUR SAMUEL DO May 28, 2018 06:07
[2018-05-28 06:10] VITALS: BP 107/76
[2018-05-28] MEDS ORDERED: VILAZODONE HYDROCHLORIDE 40 MG XX SCH (09:00)
[2018-05-28] MEDS: VILAZODONE HCL 40 MG TAB PO SCH (09:00)
[2018-05-28] MEDS ORDERED: TAMSULOSIN HCL 0.4 MG CAP PO SCH (09:00)
[2018-05-28] MEDS: DOCUSATE SODIUM 100 MG CAP PO SCH ×2 (09:06→21:34)
[2018-05-28] MEDS: OXYBUTYNIN CHL XL 5 MG TABCR PO SCH ×2 (09:06→21:33)
[2018-05-28] MEDS: ENOXAPARIN 40 MG/0.4ML SYR SC SCH (09:07)
[2018-05-28] MEDS: CALCIUM OYSTER SHELL 500MG TAB PO SCH (09:07)
[2018-05-28] MEDS: RANITIDINE HCL 150 MG TAB PO SCH ×2 (09:07→21:33)
[2018-05-28 09:47] VITALS: Ht 177.8 cm; Wt 90.7 kg
--- NOTE | 2018-05-28 10:31 | Miscellaneous Provider Note ---
Miscellaneous Provider Note Note Still some low grade fever. Slightly tachycardic as well. Exam shows erythema over right lower extremity below the knee, but also a patch of erythema over medial mid-thigh and some excoriation in right perineal/scrotal area. Will broaden IV antibiotic coverage with addition of Fortaz to vancomycin. Watch closely. LENA CUETO MD May 28, 2018 10:31
--- NOTE | 2018-05-28 11:57 | NUR ---
Physical Therapy Impression PT Wound eval: Nursing indicates that pt has an area of skin breakdown at L) gluteal fold. Inspection reveals area of excoriation, likely related to sheering and moisture management, at L) posterior/inner thigh extending with further redness and denuded skin to B) sides of groin and scrotum. Area cleansed with sterile saline and patted dry with soft towel. Open, denuded areas treated with zinc based moisture barrier cream and nursing to determine if order for nystatin would be beneficial for red, itchy areas at B) groin and scrotal area. No further PT visits planned, as areas do not require debridement at this time. Physical Therapy Goals 1. Pt to be one person Min/Mod assist for supine to/from sit transfers 2. Pt to be one person Mod/Max assist squat pivot transfer from bed to power W/C. Patient's Goals
[2018-05-28 12:05] VITALS: BP 123/60
[2018-05-28] MEDS: NYSTATIN 100,000 U/GM PWD 15GM TP SCH ×2 (12:22→21:34)
--- NOTE | 2018-05-28 14:41 | NUR ---
Occupational Therapy Impression OT eval completed with PT. Pt. would benefit from OT services 5x/ week to increase independence in ADL's. Pt. will need further rehab prior to d/c to home in order to be able to complete stand pivot transfers, as he previously had been doing at home. Occupational Therapy Goals 1.Pt. to perform dressing activities with Mod A. 2. Pt. to perform showering activities with MOd A. 3. Pt. to perform toileting activities with Min A. 4. Pt. to perform grooming activities with I. Patient's Goal
[2018-05-28 16:04] VITALS: BP 133/56
[2018-05-28] MEDS: NS(*) 0.9% 1000 ML BAG 1,000 ML IV PRN (16:15)
[2018-05-28] MEDS ORDERED: [UNRECOGNIZED DRUG - MIXTURE] IVPB SCH (18:00)
[2018-05-28 19:45] VITALS: BP 97/43
[2018-05-28] MEDS: APAP/HYDROCODONE 325/5 TAB PO PRN (21:34)
[2018-05-29 00:29] VITALS: BP 94/40
[2018-05-29] MEDS: ACETAMINOPHEN 325 MG TAB PO PRN ×3 (00:40→22:31)
[2018-05-29] MEDS: NS(*) 0.9% 1000 ML BAG 1,000 ML IV PRN ×2 (03:08→15:14)
[2018-05-29 03:14] VITALS: BP 91/50
[2018-05-29 06:29] LABS: PLATELET COUNT, AUTOMATED 140 K/uL (150-450)
[2018-05-29] MEDS: APAP/HYDROCODONE 325/5 TAB PO PRN (08:01)
[2018-05-29] MEDS: [UNRECOGNIZED DRUG - MIXTURE] IVPB SCH ×2 (08:02→20:28)
--- NOTE | 2018-05-29 09:06 | Hospitalist Progress Note ---
Subjective Progress Notes Subjective This patient was admitted for cellulitis. He had no acute events overnight. Patient Complains of: Cardiovascular: No: Chest Pain Respiratory: No: Shortness of Breath Physical Exam Vital Signs Date Time Temp Pulse Resp B/P (MAP) Pulse Ox O2 Delivery O2 Flow Rate FiO2 05/29/18 07:41 98 Nasal Cannula 2.0 05/29/18 07:15 97.5 71 12 05/29/18 03:14 91/50 (64) 40.0 Intake and Output0 05/29/18 06:59 Intake Total 2429 ml Output Total 800 ml Balance 1629 ml Intake Oral 690 ml IV Total 1739 ml Output Urine Total 400 ml Urine/Stool Mix 400 ml # Voids 1 Integumentary: Other (Right leg with increased erythema and streaking.) Result Diagram: 05/29/1861805/29/18618 Item Value Date Time Blood Culture - Final Resulted 05/28/18 0156 Blood Blood Culture - Final Resulted 05/28/18 0148 Blood Monitor Interpretation: Sinus Tachycardia Assessment and Plan Problems: (1) Cellulitis of left leg Status: Acute Assessment & Plan: He initially presented with erythema of the left gluteal fold. This has since resolved. (2) Cellulitis of right leg Status: Acute Assessment & Plan: The right leg now has worsening erythema and streaking up the leg. He has been on treatment with vancomycin and ceftazidime, but appears to have worsened overnight. We added clindamycin today. His culture is growing gram positive cocci in chains. A repeat CRP is pending. (3) Neurogenic bladder Status: Chronic Assessment & Plan: He currently has a Villeda catheter in place. (4) GERD (gastroesophageal reflux disease) Status: Chronic Assessment & Plan: He is on chronic treatment with ranitidine. (5) Cerebral palsy Status: Chronic Assessment & Plan: Incomplete quadriplegia, spasticity of all extremities. Has implanted baclofen pump. Exam Sepsis Risk: No Definite Risk Problem Qualifiers (1) Cerebral palsy: Cerebral palsy type: unspecified type Qualified Codes: G80.9 - Cerebral palsy, unspecified SHANNEN CAI DO May 29, 2018 09:06
[2018-05-29] MEDS: DOCUSATE SODIUM 100 MG CAP PO SCH ×2 (09:11→20:29)
[2018-05-29] MEDS: RANITIDINE HCL 150 MG TAB PO SCH ×2 (09:11→20:29)
[2018-05-29] MEDS: CALCIUM OYSTER SHELL 500MG TAB PO SCH (09:12)
[2018-05-29] MEDS: ENOXAPARIN 40 MG/0.4ML SYR SC SCH (09:12)
[2018-05-29] MEDS: NYSTATIN 100,000 U/GM PWD 15GM TP SCH ×2 (09:13→22:28)
[2018-05-29] MEDS: VILAZODONE HCL 40 MG TAB PO SCH (09:13)
--- NOTE | 2018-05-29 09:39 | Antimicrobial Stewardship ---
Antimicrobial Stewardship Empiricly appropriate: Yes (Vancomycin and Ceftazidime- hx of cellulitis 03/01) Significant PMH: Yes (cerebral palsy, hx cellulitis) Support empiric regimen: Yes Comment 05/28/18- Vancomycin, Ceftazidime, 05/29/18- added Clindamycin Approriate Cultures done: Yes (05/28/18- Blood Cx - 4/4 bottles positive GPC chains--ID and Sens pending) Gram stain show Microbs: Yes (GPC in chains) Renal/Hepatic dosing: Yes (05/28/18- Scr 1.1, 05/29/18 - Scr 1.3, watch trend) Appropriate dose for site: Yes Serum concentration checked: Yes Comment 05/29/18- Vancomycin Trough = 14.03, keep dose same Determine cumulative duration: 05/29/18- Day 2 of therapy Determine standard duration: Total therapy 10-14 days Comment 58 yo M with PMH of cerebral palsy who presented with lower back pain. His history is positive for fever and chills, R lower ext erythema, scrotal erythema and excoriation, and erythema to the right inner thigh. Imaging: CT abd/pelvis, Chest xray, Lumbar CT--- no significant findings Tmax 103.1, 8 hours afebrile, last temp 101.9 at midnight WBC - wnl, neutrophils 92.1% (left shift) ESR - 21 Scr 1.1--> 1.3 CRP 2.7 LFTs wnl - now slightly elevated (43/59) --> watch closely UA - wnl 05/28/18- Blood Cx -> 4 bottles of 4, positive for GPC in chains, likely Strep Vancomycin Trough: 14.08, continue with 1.5g IV q12h --> based on Scr bump to 1.3, goal trough 15-20 mcg/mL Antibiotics: Vancomycin 2g IV x 1, then 1.5g IV q12h, Ceftazidime 2g IV q8h, for cellulitis and scrotal excoriation. Clindamycin 600mg IV q8H Plan: Continue IV antibiotics, still febrile, erythema/swelling worse today, added clindamycin for toxin absorption. Continue IV antibiotics x 10-14 days. Will follow closely. Zoe Anne, PharmD, BCOP ZOE ANNE May 29, 2018 09:39
[2018-05-29] MEDS: CLINDAMYCIN(*) 600 MG/NS 50 ML 50 ML IVPB SCH ×2 (09:50→17:15)
--- NOTE | 2018-05-29 11:58 | NUR ---
Physical Therapy Impression PT/OT co-treat for pt safety, with time split for billing purposes. Pt required Mod/Max assist x 2 for scooting to edge of bed and transfer supine to sit. Pt tolerated sitting with variable support x 15 minutes. Discussed options for increased care at home and recommendation for [facility] services until pt is able to return to pivot transfers with Min assist. Physical Therapy Goals 1. Pt to be one person Min/Mod assist for supine to/from sit transfers 2. Pt to be one person Mod/Max assist squat pivot transfer from bed to power W/C. Patient's Goals
--- NOTE | 2018-05-29 12:56 | NUR ---
Occupational Therapy Impression Co-treat with PT. Pt. sat at EOB for a 15 minute duration with Min - Mod A. Pt. plans to d/c to home with care and private caregivers when medically appropriate. Occupational Therapy Goals 1.Pt. to perform dressing activities with Mod A. 2. Pt. to perform showering activities with MOd A. 3. Pt. to perform toileting activities with Min A. 4. Pt. to perform grooming activities with I. Patient's Goal
[2018-05-29 14:46] VITALS: BP 91/55
[2018-05-29 18:50] VITALS: BP 96/47
[2018-05-30] MEDS: CLINDAMYCIN(*) 600 MG/NS 50 ML 50 ML IVPB SCH ×3 (01:44→17:21)
[2018-05-30 01:48] VITALS: BP 110/51
[2018-05-30] MEDS: NS(*) 0.9% 1000 ML BAG 1,000 ML IV PRN ×2 (04:30→16:59)
[2018-05-30 07:08] VITALS: BP 96/49
[2018-05-30] MEDS: APAP/HYDROCODONE 325/5 TAB PO PRN (07:13)
[2018-05-30] MEDS ORDERED: VANCOMYCIN(*) 1 GM VIAL 1 GM, VANCOMYCIN (*) 0.5 GM VIAL 0.25 GM in NS(*) 0.9% 250 ML B... IVPB SCH (08:00)
[2018-05-30] MEDS: RANITIDINE HCL 150 MG TAB PO SCH ×2 (08:32→21:00)
[2018-05-30] MEDS: DOCUSATE SODIUM 100 MG CAP PO SCH ×2 (08:32→21:01)
[2018-05-30] MEDS: CALCIUM OYSTER SHELL 500MG TAB PO SCH (08:32)
[2018-05-30] MEDS: VILAZODONE HCL 40 MG TAB PO SCH (08:34)
[2018-05-30] MEDS: NYSTATIN 100,000 U/GM PWD 15GM TP SCH ×2 (08:35→21:01)
[2018-05-30] MEDS: ENOXAPARIN 40 MG/0.4ML SYR SC SCH (08:35)
--- NOTE | 2018-05-30 09:19 | Pharmacy Note ---
Vancomycin Management Note Vanco Dosing Note Vancomycin Trough 23.59 and Scr stayed at 1.3 today. Decreased Vanco dose to 1.25 gm IV q12h. Will recheck Tr at 1900 gurdeep. GERALDINE MANN May 30, 2018 09:19
--- NOTE | 2018-05-30 11:30 | Hospitalist Progress Note ---
Subjective Progress Notes Subjective He was admitted for cellulitis. He had no acute events overnight. The cellulitis appears to be improving. Patient Complains of: Cardiovascular: No: Chest Pain Respiratory: No: Shortness of Breath Physical Exam Vital Signs Date Time Temp Pulse Resp B/P (MAP) Pulse Ox O2 Delivery O2 Flow Rate FiO2 05/30/18 09:09 92 Nasal Cannula 2.0 05/30/18 07:08 99.0 103 16 96/49 (65) 05/29/18 03:14 40.0 l Intake and Output 05/30/18 07:00 Intake Total 3330 ml Output Total 2525 ml Balance 805 ml Intake Oral 940 ml IV Total 2390 ml Output Urine Total 2525 ml General Appearance: Alert, Awake, No Acute Distress, Afebrile Neuro: No Gross deficits Cardiovascular: Regular Rate and Rhythm Respiratory: No Respiratory Distress, Clear to Auscultation GI: Soft and Non-Tender Extremities: Edema (2+ pitting edema bilaterally), Other (right lower extremity hot to touch below knee, redness seems to be improving per patient) Psych: Alert & Oriented X3, Appropriate Mood & Affect Result Diagram: 05/29/18 0619 05/30/18 0532 Monitor Interpretation: Sinus Tachycardia Assessment and Plan Problems: (1) Cellulitis of left leg Status: Acute Assessment & Plan: He initially presented with erythema of the left gluteal fold. This has since resolved. (2) Cellulitis of right leg Status: Acute Assessment & Plan: The right leg has worsening erythema and streaking up the leg. He has been on treatment with vancomycin and ceftazidime, but appears to have worsened. Therefore, Clindamycin was added 05/29. His culture is growing a strep species. A repeat CRP shows a slight decrease. He will be transitioned to Clindamycin only for treatment based from cultures. (3) Neurogenic bladder Status: Chronic Assessment & Plan: He currently has a Villeda catheter in place. (4) GERD (gastroesophageal reflux disease) Status: Chronic Assessment & Plan: He is on chronic treatment with ranitidine. (5) Cerebral palsy Status: Chronic Assessment & Plan: Incomplete quadriplegia, spasticity of all extremities. Has implanted baclofen pump. Exam Sepsis Risk: No Definite Risk Problem Qualifiers (1) Cerebral palsy: Cerebral palsy type: unspecified type Qualified Codes: G80.9 - Cerebral palsy, unspecified POWER,CHRISTOPH M [facility] May 30, 2018 18:30
--- NOTE | 2018-05-30 13:30 | NUR ---
Occupational Therapy Impression Assist x2-3 for squat pivot transfer bed<>w/c. Assist provided to simulate home environment. Pt with improved tolerance and (I) this date. Pt reports no concerns with discharge home with HH as his home has a familiar set-up that improves (I). Occupational Therapy Goals 1.Pt. to perform dressing activities with Mod A. 2. Pt. to perform showering activities with MOd A. 3. Pt. to perform toileting activities with Min A. 4. Pt. to perform grooming activities with I. Patient's Goal
[2018-05-30 14:16] VITALS: BP 111/69
[2018-05-30 18:39] VITALS: BP 129/75
[2018-05-31] MEDS: CLINDAMYCIN(*) 600 MG/NS 50 ML 50 ML IVPB SCH ×3 (01:21→17:36)
[2018-05-31 03:35] VITALS: BP 122/62
[2018-05-31] MEDS: NS(*) 0.9% 1000 ML BAG 1,000 ML IV PRN ×2 (03:38→13:08)
[2018-05-31 05:57] LABS: PLATELET COUNT, AUTOMATED 152 K/uL (150-450)
--- NOTE | 2018-05-31 07:46 | Hospitalist Progress Note ---
Subjective Progress Notes Subjective He reports feeling improved. Less pain/swelling. No significant fever. Physical Exam Vital Signs Date Time Temp Pulse Resp B/P (MAP) Pulse Ox O2 Delivery O2 Flow Rate FiO2 05/31/18 03:35 99.5 108 14 122/62 (82) 94 Room Air 05/30/18 23:43 1.0 05/29/18 03:14 40.0 Intake and Output 05/31/18 06:59 Intake Total 3248.5 ml Output Total 3650 ml Balance -401.5 ml Intake Oral 936 ml IV Total 2312.5 ml Output Urine Total 3650 ml # Bowel Movements 1 General Appearance: Alert, Awake Cardiovascular: Regular Rate and Rhythm Respiratory: Clear to Auscultation (decreased effort) GI: Soft and Non-Tender Extremities: Warm, Perfused, Edema Integumentary: Other (RLE has less edema and erythema in all areas including inguinal region/some superficial excoriations in inguinal/perineal areas/right distal anterior leg has superficial wound relatively unchanged/small wound over lateral malleolus with minimal drainage and no fluccuence) Result Diagram: 05/31/1852705/31/18527 Assessment and Plan Problems: (1) Cellulitis of right leg Status: Acute Assessment & Plan: The right leg appears improved. He was initially on treatment with IV vancomycin and ceftazidime, but was transitioned to cl indamycin when blood culture results showed Strep dysgalactiae. Will continue to work on skin/wound care. He will need to have a minimum of 48-72 hours afebrile before considering change to oral antibiotics. (2) Neurogenic bladder Status: Chronic Assessment & Plan: He currently has a Villeda catheter in place. (3) GERD (gastroesophageal reflux disease) Status: Chronic Assessment & Plan: He is on chronic treatment with ranitidine. (4) Cerebral palsy Status: Chronic Assessment & Plan: Incomplete quadriplegia, spasticity of all extremities. Has implanted baclofen pump. Exam Sepsis Risk: No Definite Risk Problem Qualifiers (1) Cerebral palsy: Cerebral palsy type: unspecified type Qualified Codes: G80.9 - Cerebral palsy, unspecified LENA CUETO MD May 31, 2018 07:46
[2018-05-31 07:51] VITALS: BP 110/65
[2018-05-31] MEDS: RANITIDINE HCL 150 MG TAB PO SCH ×2 (09:23→20:14)
[2018-05-31] MEDS: CALCIUM OYSTER SHELL 500MG TAB PO SCH (09:23)
[2018-05-31] MEDS: VILAZODONE HCL 40 MG TAB PO SCH (09:23)
[2018-05-31] MEDS: DOCUSATE SODIUM 100 MG CAP PO SCH ×2 (09:23→20:14)
[2018-05-31] MEDS: ENOXAPARIN 40 MG/0.4ML SYR SC SCH (09:24)
[2018-05-31] MEDS: NYSTATIN 100,000 U/GM PWD 15GM TP SCH ×2 (09:24→20:14)
[2018-05-31] MEDS: ACETAMINOPHEN 325 MG TAB PO PRN (10:27)
[2018-05-31 13:12] VITALS: BP 127/65
--- NOTE | 2018-05-31 15:44 | NUR ---
Physical Therapy Impression Pt required Mod/Max assist of 2 therapists to complete squat-pivot transfer from bed to power W/C. OT acted as simulated pivot pole for pt to use R) UE and assist as able. PT provided assist at gait belt to faciliate completion of transfer to wheelchair safely. Physical Therapy Goals 1. Pt to be one person Min/Mod assist for supine to/from sit transfers 2. Pt to be one person Mod/Max assist squat pivot transfer from bed to power W/C. Patient's Goals
--- NOTE | 2018-05-31 15:55 | NUR ---
Occupational Therapy Impression Pt. required Max A x2 to perform bed mobility (supine to sit at EOB) and Max A x2 to perform stand pivot transfer from EOB to w/c. Continue with POC. Occupational Therapy Goals 1.Pt. to perform dressing activities with Mod A. 2. Pt. to perform showering activities with MOd A. 3. Pt. to perform toileting activities with Min A. 4. Pt. to perform grooming activities with I. Patient's Goal
[2018-05-31 16:00] VITALS: BP 130/60
[2018-05-31 18:41] VITALS: BP 126/71
[2018-05-31] MEDS: APAP/HYDROCODONE 325/5 TAB PO PRN (20:14)
[2018-06-01] MEDS: NS(*) 0.9% 1000 ML BAG 1,000 ML IV PRN (00:02)
[2018-06-01] MEDS: CLINDAMYCIN(*) 600 MG/NS 50 ML 50 ML IVPB SCH (02:06)
[2018-06-01 02:08] VITALS: BP 140/69
[2018-06-01 06:40] LABS: PLATELET COUNT, AUTOMATED 147 K/uL (150-450)
[2018-06-01 06:45] VITALS: BP 130/70
[2018-06-01] MEDS: NYSTATIN 100,000 U/GM PWD 15GM TP SCH ×2 (09:31→21:26)
[2018-06-01] MEDS: RANITIDINE HCL 150 MG TAB PO SCH ×2 (09:31→21:25)
[2018-06-01] MEDS: TAMSULOSIN HCL 0.4 MG CAP PO SCH (09:31)
[2018-06-01] MEDS: ENOXAPARIN 40 MG/0.4ML SYR SC SCH (09:32)
[2018-06-01] MEDS: CALCIUM OYSTER SHELL 500MG TAB PO SCH (09:32)
[2018-06-01] MEDS: DOCUSATE SODIUM 100 MG CAP PO SCH ×2 (09:32→21:25)
[2018-06-01] MEDS: OXYBUTYNIN CHL 5 MG TAB PO SCH ×2 (09:32→21:26)
[2018-06-01] MEDS: VILAZODONE HCL 40 MG TAB PO SCH (09:32)
[2018-06-01] MEDS: CLINDAMYCIN 150 MG CAP PO SCH ×3 (09:36→21:26)
--- NOTE | 2018-06-01 10:17 | Medical Nutrition Therapy ---
Nutrition Anthropometrics Height (Inches): 70.00 Height (Calculated Centimeters: 177.730067 Weight (Pounds): 200 Weight (Calculated Kilograms): 90.747 Jerad Nutrition Score: Probably Inadequate Jerad Nutrition Risk Score: 10 Dietary Referral Nutrition Risk Factors: Nutrition Risk Comment: Physical Findings Physical Appearance: Overweight BMI 25-29 Skin Appearance Skin Appearance: Edema Edema Location Modifier: Both Edema Location: Lower Extremity Type of Edema: Degree of Edema: 2+ Gastrointestinal Symptoms GI Symtoms: Tube Present: Bowel Sounds: Recent Bowel Pattern: Stool Characteristics: Nutritional Diagnosis Nutritional Risk Acuity 3: GERD Nutritional Risk Acuity 4: Good Appetite Past Medical History: CP, GERD, depression, ADEOLA Nutritional Acuity: 3-Mild Nutrition Diagnosis: Increased Nutrient Needs Nutrition Etiology: Physiological Causes Nutrition Problem/Etiology/Sym: Increased nutrition needs as related to physiological causes as evidenced by cerebral palsy with spasticity Energy Requirement: 2544 (M-ST. JEOR X 1.1 (TEF) X 1.3 (activity factor- elevated due to spasticity)) Protein Requirement: 90 (1 g protein/kg-elevated due to spasticity) Fluid Requirement: 2250 (125mL/kg) Nutrition Intervention: Cont diet as ordered, Encourage intake Additional Diet Restrictions: NO GRAPEFRUIT OR RELATED CITRUS FOODS Nutrition Monitoring & Eval Nutrition Goals: Eat 50-100% Meal Nutritional Goals Comment: Continue to consume 50-100% of meals Nutrition Follow-Up: Good Intake Nutrition Monitoring: Continue to monitor for adequate intakes. RD Patient Assessment Time: [address] Assessment Type: RD Assessment Patient Nutrition Acuity: 3-Mild Follow Up Date: Jun 05, 2018 Nutritional Comment: Quadraplegic pt admitted with cellulitis to leg. Pt has 2+ edema LE. Pt on regular diet but no intake reported at this time. Alb 3.9, cRP 2.7. Will cont to monitor and encourage intake. BK 06/01/18- pt on PIPPA with consumption of 50-100% of meals. Edema has changed to BLE 2+ pitting. BUN has decreased to 15 and is WNL. AST of 38 is elevated but ALT has decreased to WNL. Cl is elevated and ranged from 108-110. Total protein and albumin are low at 4.8 and 2.5, respectively. WBC of 4.4, RBC of 3.97, Hgb of 11.2 , and Hct of 33.4 are all low. Pt has cerebral palsy with spasticity, slightly increasing protein and kcal needs. Pt on enoxaparin and oxybutynin (avoid grapefruit and related citrus). Will continue to monitor for adequate intake at meals. -LUANN JOYCE Jun 01, 2018 10:17
--- NOTE | 2018-06-01 10:20 | Hospitalist Progress Note ---
Subjective Progress Notes Subjective This patient was admitted for cellulitis. He had no acute events overnight. Patient Complains of: Cardiovascular: No: Chest Pain Respiratory: No: Shortness of Breath Physical Exam Vital Signs Date Time Temp Pulse Resp B/P (MAP) Pulse Ox O2 Delivery O2 Flow Rate FiO2 06/01/18 06:45 97.5 80 20 130/70 (90) 95 Oxy Mask 2.0 05/29/18 03:14 40.0 Intake and Output 06/01/18 07:00 Intake Total 2350 ml Output Total 3150 ml Balance -800 ml Intake Oral 1200 ml IV Total 1150 ml Output Urine Total 3150 ml Integumentary: Other (Significantly improved erythema on both legs.) Result Diagram: 06/01/1853806/01/18538 Assessment and Plan Problems: (1) Cellulitis of right leg Status: Acute Assessment & Plan: He was initially on treatment with IV vancomycin and ceftazidime, but was transitioned to clindamycin when blood culture results showed Strep dysgalactiae. He has been converted to oral clindamycin today. (2) Neurogenic bladder Status: Chronic Assessment & Plan: He currently has a Villeda catheter in place. We did restart his Flomax and oxybutynin today. Dr. Murray recommended leaving the catheter for an additional day. (3) GERD (gastroesophageal reflux disease) Status: Chronic Assessment & Plan: He is on chronic treatment with ranitidine. (4) Cerebral palsy Status: Chronic Assessment & Plan: Incomplete quadriplegia, spasticity of all extremities. Has implanted baclofen pump. Exam Sepsis Risk: No Definite Risk Problem Qualifiers (1) Cerebral palsy: Cerebral palsy type: unspecified type Qualified Codes: G80.9 - Cerebral palsy, unspecified SHANNEN CAI DO Jun 01, 2018 10:20
[2018-06-01 11:37] VITALS: BP 141/77
[2018-06-01 15:20] VITALS: BP 146/82
[2018-06-01 18:34] VITALS: BP 145/76
[2018-06-01 19:25] VITALS: BP 135/78
[2018-06-01] MEDS: APAP/HYDROCODONE 325/5 TAB PO PRN (21:25)
[2018-06-02 03:47] VITALS: BP 126/61
[2018-06-02 08:01] VITALS: BP 134/77
[2018-06-02] MEDS: RANITIDINE HCL 150 MG TAB PO SCH (08:04)
[2018-06-02] MEDS: VILAZODONE HCL 40 MG TAB PO SCH (08:04)
[2018-06-02] MEDS: ENOXAPARIN 40 MG/0.4ML SYR SC SCH (08:04)
[2018-06-02] MEDS: NYSTATIN 100,000 U/GM PWD 15GM TP SCH (08:04)
[2018-06-02] MEDS: CLINDAMYCIN 150 MG CAP PO SCH ×2 (08:05→14:37)
[2018-06-02] MEDS: CALCIUM OYSTER SHELL 500MG TAB PO SCH (08:05)
[2018-06-02] MEDS: TAMSULOSIN HCL 0.4 MG CAP PO SCH (08:05)
[2018-06-02] MEDS: DOCUSATE SODIUM 100 MG CAP PO SCH (08:05)
[2018-06-02] MEDS: OXYBUTYNIN CHL 5 MG TAB PO SCH (08:05)
[2018-06-02] MEDS ORDERED: PENI-24 PO (10:59)
--- NOTE | 2018-06-02 11:09 | Hospitalist Depart ---
Discharge Summary Reason for Hosp/Final Diag: (1) Cellulitis of right leg Status: Acute Hospital Course & Plan: He presented with right hip pain, fevers and chills. The right leg appears much improved. He has been without a low grade fever since the morning of 05/31. He was initially on treatment with IV vancomycin and ceftazidime, but was transitioned to clindamycin when blood culture results showed Strep dysgalactiae. He will go home on penicillin VK for 9 more days to make 14 day treatment. (2) Bacteremia Status: Acute Hospital Course & Plan: Secondary to cellulitis. As above. (3) Neurogenic bladder Status: Chronic Hospital Course & Plan: He had a Villeda catheter in place. We did restart his Flomax and oxybutynin yesterday. Dr. Murray recommended leaving the catheter fo r an additional day. The Villeda catheter was removed this morning and he was able to spontaneously void with 50cc of PVR by bladder US. (4) GERD (gastroesophageal reflux disease) Status: Chronic Hospital Course & Plan: He is on chronic treatment with ranitidine. (5) Cerebral palsy Status: Chronic Hospital Course & Plan: Incomplete quadriplegia, spasticity of all extremities. Has implanted baclofen pump. Departure Weight (Pounds): 200 Weight (Ounces): 1.0 Result Diagram: 06/01/1853806/01/18538 Item Value Date Time Cefepime HCl 2 gm/ 100 ml @ 200 mls/hr 03/31/17 1400 Sodium Chloride Q12H@0200,1400/IVPB 04/02/17 0203 White Blood Count 10.0 k/uL 05/28/18147 White Blood Count 9.2 k/uL 05/29/18618 White Blood Count 4.7 k/uL 05/31/18527 White Blood Count 4.4 k/uL L 06/01/18538 Neutrophils (%) (Auto) 57.9 % 06/01/18538 Neutrophils (%) (Auto) 69.3 % 05/31/18527 Neutrophils (%) (Auto) 92.1 % H 05/28/18147 Neutrophils (%) (Auto) 84.1 % H 05/29/18618 Erythrocyte Sedimentation Rate 21 mm/HOUR H 05/28/18147 Hemoglobin 14.0 g/dL 05/28/18 0148 Hemoglobin 12.3 g/dL L 05/29/18 0619 Hemoglobin 11.2 g/dL L 05/31/18 0528 Hemoglobin 11.2 g/dL L 06/01/18 0539 C-Reactive Protein 32.1 mg/dl H 05/30/18 0532 C-Reactive Protein 16.7 mg/dl H 05/31/18 0528 C-Reactive Protein 37.3 mg/dl H 05/29/18 0000 C-Reactive Protein 2.7 mg/dl H 05/28/18 0148 Potassium Level 4.0 mmol/L 05/28/18 0148 Sodium Level 140 mmol/L 05/28/18 0148 Chloride Level 107 mmol/L 05/28/18 0148 Carbon Dioxide Level 24 mmol/L 05/28/18 0148 Blood Urea Nitrogen 29 mg/dl H 05/28/18 0148 Creatinine 1.10 mg/dl 05/28/18 0148 Random Glucose 109 mg/dl 05/28/18 0148 Lactate 1.4 mmol/L 05/28/18 0148 Calcium Level 9.3 mg/dl 05/28/18 0148 Total Bilirubin 0.3 mg/dl 05/28/18 0148 Aspartate Amino Transf (AST/SGOT) 17 U/L 05/28/18 0148 Alanine Aminotransferase (ALT/SGPT) 27 U/L 05/28/18 0148 Alkaline Phosphatase 104 U/L 05/28/18 0148 Creatinine 1.30 mg/dl H 05/29/18 0619 Creatinine 1.30 mg/dl H 05/30/18 0532 Creatinine 1.00 mg/dl 05/31/18 0528 Creatinine 1.00 mg/dl 06/01/18 0539 Blood Urea Nitrogen 15 mg/dl 06/01/18 0539 Blood Urea Nitrogen 14 mg/dl 05/31/18 0528 Blood Urea Nitrogen 20 mg/dl 05/30/18 0532 Blood Urea Nitrogen 26 mg/dl H 05/29/18 0619 Sodium Level 136 mmol/L L 05/29/18 0619 Sodium Level 137 mmol/L 05/30/18 0532 Sodium Level 140 mmol/L 05/31/18 0528 Sodium Level 140 mmol/L 06/01/18 0539 Total Bilirubin < 0.1 mg/dl L 06/01/18 0539 Aspartate Amino Transf (AST/SGOT) 38 U/L H 06/01/18 0539 Alanine Aminotransferase (ALT/SGPT) 53 U/L 06/01/18 0539 Alkaline Phosphatase 167 U/L H 06/01/18 0539 Urine RBC <1 /HPF 05/28/18255 Urine WBC <1 /HPF 05/28/18255 Urine Leukocyte Esterase Negative 05/28/18255 Urine Urobilinogen Negative mg/dL 05/28/18255 Urine Bilirubin Negative 05/28/18255 Urine Squamous Epithelial Cells None /LPF 05/28/18255 SPEC #: [id number] NOAH: 05/28/18 STATUS: COMP REQ #: [id number] RECD: 05/28/18 [facility] DR: ALEXANDRO PARDO MD SOURCE: BLOOD ENTR: 05/28/[address]: SHANNEN MILLIGAN MD SPDESC: ORDERED: BCGS, CULT BLOOD Procedure Result Verified BLOOD CULTURE GRAM STAIN Final 05/28/18-1405 GROWTH IN BOTH THE AEROBIC AND ANAEROBIC BOTTLES GRAM POSITIVE COCCI IN CHAINS POSITIVE BLOOD CULTURE GRAM STAIN REPORT CALLED TO: TOYA RO RN DATE/TIME REPORT CALLED: 05/28/18 14:00 BY ANIL BLOOD CULTURE Final 05/30/18-1435 Organism 1 STREP DYSGALACTIAE/EQUISIMILIS GROWTH PRESENT IN BOTH THE AEROBIC AND ANAEROBIC BOTTLES ID AND SENSITIVITY TO FOLLOW STREP DYS M.I.C. RX --------- --- AMPICILLIN <=0.25 S CEFOTAXIME <=0.12 S CEFTRIAXONE <=0.12 S CLINDAMYCIN <=0.25 S ERYTHROMYCIN <=0.12 S LINEZOLID <=2 S BENZYLPENICILLIN <=0.06 S VANCOMYCIN 0.5 S Imaging 05/28/18 Abd/Pelvis CT - No acute process or significant change is identified in the abdomen or pelvis. 05/28/18 CXR - No acute process. 05/28/[address] - No evidence of acute skeletal or soft tissue abnormality. Condition: Improved Discharge: Home PT/OT Follow Up For: PT For Strengthening, OT For ADL's, PT Evaluation and Treat, OT Evaluation and Treat Home Health RN Follow Up For: Nursing Assessment, Wound Longterm Health CONSULTING PRACTICE DIRECTOR Follow Up For: ADL Assistance Discharge Instructions Home Meds Active Scripts Penicillin V Potassium 500 Mg Tab (PENICILLIN V POTASSIUM 500 MG TAB) 500 Mg Tablet, 500 MG PO QID, #36 TAB Prov:KAUR DESHPANDE MD 06/02/18 Reported Medications Docusate Sodium (COLACE) 100 Mg Capsule, 100 MG PO BID, #30 CAPSULE 10/05/17 Modafinil (MODAFINIL) 100 Mg Tablet, 150 MG PO PRN 09/22/17 Calcium Carbonate (CALCIUM) 500 Mg Tablet, 2000 MG PO QDAY 06/12/16 Multivitamin (MULTI VITAMIN DAILY) 1 Each Tablet, 1 EACH PO QDAY 06/12/16 Oxybutynin Chloride (OXYBUTYNIN CHLORIDE ER) 10 Mg Tab.er.24, 10 MG PO BID, TAB.SR 06/12/16 Tamsulosin Hcl (FLOMAX) 0.4 Mg Cap.er.24h, 0.4 MG PO DAILY 02/23/15 Baclofen (LIORESAL INTRATHECAL) 50 Mcg/1 Ml Ampul, 165 MCG IT DAILY Continuous Infusion via inserted pump 02/23/15 Vilazodone Hydrochloride (VIIBRYD) 40 Mg Tablet, 40 MG PO QDAY 02/21/12 Al Hydrox/Mg Trisilicate (Gaviscon) 1 Ea Chew, 4 EA PO QHS 02/21/12 Acetaminophen/Diphenhydramine (TYLENOL PM (OR EQUIV) 500/25 MG (PATIENT OWN) 1 Each Tablet, 1 TAB PO QHS PRN 325/25 02/20/12 Ranitidine Hcl (Zantac) 150 Mg Tab, 150 MG PO 1-2XD, 0 Refills 01/26/10 Discontinued Scripts Tramadol Hcl (TRAMADOL HCL) 50 Mg Tablet, 50 MG PO Q6H PRN for PAIN, #56 TAB Prov:CHRISTOPH POWER DRYER OPERATOR 02/26/18 Terbinafine Hcl (ATHLETE'S FOOT) 24 Gm Cream..g., 0 GM TP BID, #1 TUBE Prov:CRYSTAL CUETO MD 04/16/17 Diet: Regular Activity: As Tolerated Special Instructions: Go to the ER for worsening redness of the right leg, fevers or chills. Follow up with your PCP in 1-2 weeks to check up on the right leg. Copies to: SHANNEN MILLIGAN MD ; Venous Thromboembolism Antithrombotics Is Pt On Any Antithrombotics?: Yes Problem Qualifiers (1) Cerebral palsy: Cerebral palsy type: unspecified type Qualified Codes: G80.9 - Cerebral palsy, unspecified KAUR DESHPANDE MD Jun 02, 2018 11:08
[2018-06-02 11:37] VITALS: BP 128/62
== END 2018-06-02 15:50 | disposition home health service (06) | DRG 603 ==
LOC: ER 00:57 → MED 05:19
PROVIDERS: ADMIT Internal Medicine; ATTEND Internal Medicine
PROC: 5A09357 Assistance with Respiratory Ventilation, Less than 24 Consecutive Hours, Continuous Positive Airway Pressure (ICD-10-PCS; principal; 2018-05-29)
DX: L03.115 Cellulitis of right lower limb (principal); L03.317 Cellulitis of buttock; G47.33 Obstructive sleep apnea (adult) (pediatric); K21.9 Gastro-esophageal reflux disease without esophagitis; R09.02 Hypoxemia; G80.9 Cerebral palsy, unspecified; B95.4 Other streptococcus as the cause of diseases classified elsewhere; N31.9 Neuromuscular dysfunction of bladder, unspecified; G26 Extrapyramidal and movement disorders in diseases classified elsewhere; G89.29 Other chronic pain; Z97.8 Presence of other specified devices; Z91.040 Latex allergy status; Z88.8 Allergy status to other drugs, medicaments and biological substances
CPT/HCPCS: 36415; 71045; 72132; 74177; 80202; 81001; 82040; 82247; 82310; 82374; 82435; 82565; 82947; 83605; 84075; 84132; 84155; 84295; 84450; 84460; 84520; 85025; 85651; 86140; 87040; 87077; 87088; 87186; 94660; 96360; 96361; 97161; 97166; 99284; J0713; J1650; J3370; J3490; J7030; J7040; J7050; Q9967

== ENCOUNTER → 2018-05-28 | Outpatient (CLI) | payer MEDICARE, OTHER ==
[~2018-05-28] MED LIST changes: +PENI-24 PO; +TRAM-420 PO
[2018-05-28 09:47] VITALS: BMI 28.7
== END ==
LOC: AMB 00:19
PROVIDERS: ATTEND Nurse Practitioner
DX: M54.9 Dorsalgia, unspecified (principal); M25.552 Pain in left hip; M25.551 Pain in right hip; R11.0 Nausea
CPT/HCPCS: A0425; A0427

== ENCOUNTER → 2018-08-01 | Outpatient (CLI) | payer MEDICARE, OTHER ==
[2018-05-28 09:47] VITALS: BMI 28.7
[~2018-08-01] MED LIST changes: +PENI-24 PO
--- NOTE | 2018-08-01 11:59 | RADIOLOGY IMAGING REPORT ---
FACILITY: [facility] - [place] PATIENT NAME: Ramu Carney : 1960 MR: [id number] V: [id number] EXAM DATE: ORDERING PHYSICIAN: CHASTITY KENNEDY TECHNOLOGIST: Location: [facility] - [place] Patient: Ramu Carney : 1960 Visit/Account:[id number] Date of Sevice: 08/01/2018 CT ABDOMEN PELVIS W/O CON HISTORY: Follow-up left kidney stone from one year previously TECHNIQUE: Axial images acquired through the abdomen/pelvis. Coronal and sagittal reformatting also performed. No IV contrast administered.Dose Lowering Technique One of the following dose optimization techniques was utilized in the performance of this exam: Autom ated exposure control; adjustment of the mA and/or kV according to the patient's size; or use of an i terative reconstruction technique. Specific details can be referenced in the facility's radiology C T exam operational policy. COMPARISON: May 28, 2018 and August 17, 2017 FINDINGS: Visualized lung bases: Negative. Hepatobiliary: There postsurgical changes from a cholecystectomy. Along the anterior aspect of the liver there is a 2.2 x 1.4 cm area of decreased attenuation that appears stable when compared the bridgett or study August 17, 2017. Spleen: Negative. Adrenals: Negative. Pancreas: Negative. Kidneys ureters and bladder: Small parapelvic cyst in the right kidney is again noted. There is no e vidence of hydronephrosis or hydroureter. No demonstration of urolithiasis at this time. Genitalia: Negative. GI: There is mild diffuse thickening of the wall of the rectum and distal sigmoid colon although no surrounding inflammatory change seen in the adjacent fat Vessels/spaces/nodes: Mild atherosclerotic calcifications in the abdominal aorta and branch vessels Bones/soft tissues: Spondylotic changes in the thoracal lumbar spine again seen. There is a spinal e lectrode in the thoracolumbar spine. The battery pack is implanted in the anterior subcutaneous hood ges soft tissues in the right pelvis Additional findings: None pertinent. IMPRESSION: There is a 2.2 x 1.4 cm area of decreased attenuation along the anterior aspect medial segment left l obe of the liver that appear stable when compared to prior study dating back to August 17, 2017 No evidence of urolithiasis, hydronephrosis or hydroureter There is mild diffuse thickening of the wall the rectum in the distal sigmoid colon although no surro unding inflammatory change in the adjacent fat. This could be related to an acute infectious/inflamm atory process although clinical correlation needed Additional chronic findings as described Report Dictated By: Gracy Veras MD at 08/01/2018 11:32 AM Report E-Signed By: Gracy Veras MD at 08/01/2018 11:54 AM STEPHANYN:KAY
== END ==
LOC: CT 00:33
PROVIDERS: ATTEND Urology
DX: Z12.5 Encounter for screening for malignant neoplasm of prostate (principal); N20.0 Calculus of kidney
CPT/HCPCS: 36415; 74176; G0103; 84153

== ENCOUNTER → 2018-08-31 | Outpatient (CLI) | payer MEDICARE, OTHER ==
[2018-05-28 09:47] VITALS: BMI 28.7
--- NOTE | 2018-08-31 14:19 | RADIOLOGY IMAGING REPORT ---
FACILITY: [facility] PATIENT NAME: Ramu Carney : 1960 MR: [id number] V: [id number] EXAM DATE: ORDERING PHYSICIAN: SHANNEN MILLIGAN TECHNOLOGIST: Location: [facility] - [place] Patient: Ramu Carney : 1960 Visit/Account:[id number] Date of Sevice: 08/31/2018 Exam type: HIP LEFT History: Osteoporosis, left hip pain Comparison: None. Findings: Two views of the left hip demonstrate mild joint space narrowing. Small cystic changes seen in the l eft femoral neck. No evidence of acute fracture or dislocation. Incompletely imaged is a battery pa ck/pump projecting over the right lower abdomen IMPRESSION: 1. Mild degenerative changes of the left hip joint Report Dictated By: Gracy Veras MD at 08/31/2018 2:13 PM Report E-Signed By: Gracy Veras MD at 08/31/2018 2:15 PM WSN:[email or web address]
--- NOTE | 2018-08-31 14:33 | RADIOLOGY IMAGING REPORT ---
[place] [facility] [place] NAME: Ramu Carney : 1960 MR: [id number] V: [id number] EXAM DATE: ORDERING PHYSICIAN: SHANNEN MILLIGAN TECHNOLOGIST: Location: [facility] Patient: Ramu Carney : 1960 Visit/Account:[id number] Date of Sevice: 08/31/2018 DEXA Scan Clinical history: Osteoporosis, left hip pain. Comparison: DEXA scan from 05/22/2014. LUMBAR SPINE: The bone mineral density (BMD) measured from L3-L4 correlates with a Z-score of -1.5 and a T-score of -1.3 which is osteopenia as defined by the World Health Organization. The corresponding risk of fra cture in the lumbar spine is 2-3 times increased compared with a young adult reference population. T his value has increase by 16.1 % since the prior study. More than 5% change is considered significan t. HIP: Bone mineral density (BMD) measured in the LEFT total hip region correlates with a Z-score -2.1 and a T-score of -2.2 which is osteopenia as defined by the World Health Organization. The corresponding risk of fracture in the hip is 4-6 times increased compared to a young adult reference population. Th is value has increased by 18.7 % since the prior study. More than 5% change is considered significan t. T score left femoral neck -2.7 Bone mineral density (BMD) measured in the Femoral Neck region measures 0.718 g/cm?. IMPRESSION: 1. Lumbar spine: Osteopenia. There has been 16.1% increase in the bone mineral density since the pr evious exam. 2. Left Total Hip: Osteopenia. There has been 18.7% increase in the bone mineral density since the previous exam. 3. Femoral Neck: Bone Mineral Density is 0.718 g/cm? The next DEXA scan of this patient should include the following sites: L1-L4 and the left hip. FRAX? WHO Fracture Risk Assessment Tool link: <http://www.shef.ac.uk/FRAX/tool.jsp?locationValue=9> PLEASE NOTE: 1) The World Health Organization defines low BMD as follows: T-score Normal > -1 Osteopenia < -1 and > -2.5 Osteoporosis < -2.5 without fractures Established osteoporosis < -2.5 with fractures 2) In general, you may wish to consider: Diagnosis Treatment Follow-up DEXA Normal BMD Prevention 2-3 years Osteopenia Prevention/therapy 1-2 years Osteoporosis Therapy Yearly 3) Fracture risk estimated from the T-score is more accurate for vertebral fractures (often spontane ous) than for hip fractures. Report Dictated By: Gracy Veras MD at 08/31/2018 2:15 PM Report E-Signed By: Gracy Veras MD at 08/31/2018 2:28 PM WSN:[email or web address]
== END ==
LOC: RAD 01:35
PROVIDERS: ATTEND Family Medicine
DX: M16.12 Unilateral primary osteoarthritis, left hip (principal); M85.89 Other specified disorders of bone density and structure, multiple sites
CPT/HCPCS: 77080

== ENCOUNTER 2018-10-11 15:22 | Inpatient (IN) | payer MEDICARE, OTHER ==
[2018-05-28 09:47] VITALS: Ht 177.8 cm; Wt 89.8 kg
[~2018-10-11] VITALS: Ht 177.8 cm; Wt 89.8 kg
--- NOTE | 2018-10-11 15:34 | ER Report ---
History and Physical Time Seen By MD: 15:31 HPI/ROS CHIEF COMPLAINT: Possible infection HISTORY OF PRESENT ILLNESS: This is a 58-year-old male who presents to the emergency department for concerns of a right lower show any infection. The patient is wheelchair-bound, from cerebral palsy. Noted yesterday that his right lower extremity had some redness, progressed through today, when he woke this morning he had significant swelling and erythema to the lower extremity. Upon arrival he has obvious cellulitis to the right lower extremity, he does have an area that looks to be the source on the right lateral heel. He has not had fevers although he has been taking Aleve twice a day for the discomfort. Upon arrival his blood pressure is 77 systolic, heart rate is 125. Sepsis protocol initiated. He denies chest pain or shortness of breath. No nausea or vomiting. No other complaints at this time. REVIEW OF SYSTEMS: Constitutional: As above. Eyes: No discharge. ENT: No sore throat. Cardiovascular: No chest pain, no palpitations. Respiratory: No cough, no shortness of breath. Gastrointestinal: No abdominal pain, no vomiting. Genitourinary: No hematuria. Musculoskeletal: No back pain. Skin: As above. Neurological: No headache. Allergies: Coded Allergies: latex (Verified Allergy, Severe, 10/11/18) sertraline (Verified Allergy, Severe, RASH, 10/11/18) codeine (Verified Adverse Reaction, Intermediate, NAUSEA/VOMITING, 10/11/18) Home Meds Active Scripts Penicillin V Potassium 500 Mg Tab (PENICILLIN V POTASSIUM 500 MG TAB) 500 Mg Tablet, 500 MG PO QID, #36 TAB Prov:KAUR DESHPANDE MD 06/02/18 Reported Medications Docusate Sodium (COLACE) 100 Mg Capsule, 100 MG PO BID, #30 CAPSULE 10/05/17 Modafinil (MODAFINIL) 100 Mg Tablet, 150 MG PO PRN 09/22/17 Calcium Carbonate (CALCIUM) 500 Mg Tablet, 2000 MG PO QDAY 06/12/16 Multivitamin (MULTI VITAMIN DAILY) 1 Each Tablet, 1 EACH PO QDAY 06/12/16 Oxybutynin Chloride (OXYBUTYNIN CHLORIDE ER) 10 Mg Tab.er.24, 10 MG PO BID, TAB.SR 06/12/16 Tamsulosin Hcl (FLOMAX) 0.4 Mg Cap.er.24h, 0.4 MG PO DAILY 02/23/15 Baclofen (LIORESAL INTRATHECAL) 50 Mcg/1 Ml Ampul, 165 MCG IT DAILY Continuous Infusion via inserted pump 02/23/15 Vilazodone Hydrochloride (VIIBRYD) 40 Mg Tablet, 40 MG PO QDAY 02/21/12 Al Hydrox/Mg Trisilicate (Gaviscon) 1 Ea Chew, 4 EA PO QHS 02/21/12 Acetaminophen/Diphenhydramine (TYLENOL PM (OR EQUIV) 500/25 MG (PATIENT OWN) 1 Each Tablet, 1 TAB PO QHS PRN 325/25 02/20/12 Ranitidine Hcl (Zantac) 150 Mg Tab, 150 MG PO 1-2XD, 0 Refills 01/26/10 Past Medical/Surgical History The patient has a past medical and surgical history of hydrocephalus, BRAILLE TRANSLATOR shunt, seizures, stroke, migraines, murmur, cerebral palsy, hypercholesterolemia, asthma, pneumonia, GERD, hepatitis A, neurogenic bladder, frequent urinary tract infections, wheelchair-bound, arthritis, osteopenia, left scapular fracture, ankle fracture, humerus fracture, bilateral clavicle fracture, wears glasses, cellulitis, decreased circulation in legs, depression, cholecystectomy, appendectomy, testicular torsion, vasectomy, ankle fusion, baclofen pump, eardrum patch as a child, tonsillectomy, benign mole removed. Reviewed Nurses Notes: Yes Hx Smoking: No Exposure to Second Hand Smoke?: No Hx Substance Use Disorder: No Hx Alcohol Use: No Constitutional Vital Sign - Last 24 Hours 10/11/18 10/11/18 10/11/18 10/11/18 15:28 15:29 15:32 15:33 Temp 98.9 Pulse 119 122 Resp 20 B/P (MAP) 73/38 (50) 71/55 71/55 (60) Pulse Ox 93 93 O2 Delivery Room Air 10/11/18 10/11/18 10/11/18 10/11/18 15:46 15:52 16:00 16:02 Pulse 190 93 Resp 0 B/P (MAP) 91/35 (53) 83/49 (60) Pulse Ox 77 90 10/11/18 10/11/18 10/11/18 10/11/18 16:12 16:15 16:22 16:30 Pulse 94 92 Resp 18 17 B/P (MAP) 95/51 (66) 93/50 (64) Pulse Ox 97 93 10/11/18 10/11/18 10/11/18 10/11/18 16:32 16:42 16:45 16:50 Pulse 88 92 87 Resp 14 15 11 B/P (MAP) 99/44 (62) Pulse Ox 95 94 95 10/11/18 10/11/18 10/11/18 10/11/18 16:55 17:00 17:05 17:10 Pulse 98 90 87 95 Resp 22 19 10 17 B/P (MAP) 85/48 (60) Pulse Ox 95 94 95 95 10/11/18 10/11/18 10/11/18 17:15 17:20 17:25 Pulse 97 88 98 Resp 19 16 20 B/P (MAP) 93/45 (61) Pulse Ox 94 92 94 Physical Exam General Appearance: The patient is alert, has no immediate need for airway protection and no signs of toxicity. Eyes: Pupils equal and round no pallor or injection. ENT, Mouth: Mucous membranes are moist. Respiratory: There are no retractions, lungs are clear to auscultation. Cardiovascular: Regular rate and rhythm. murmurs, no clicks or rubs. Gastrointestinal: Abdomen is soft and non tender, no masses, bowel sounds normal. Neurological: Alert and oriented 4. Has contractures to the left arm, however is able to move all extremities, following all commands. No focal neuro deficits. Skin: Right lower extremity with significant erythema, cellulitis, hot to touch extending from the proximal tibia to the toes. There is a small wound on the right lateral ankle that could be a source of an infection. Musculoskeletal: Neck is supple non tender. Extremities are nontender, nonswollen and have full range of motion. DIFFERENTIAL DIAGNOSIS: After history and physical exam differential diagnosis was considered for osteomyelitis, cellulitis, DVT. Medical Decision Making Data Points Result Diagram: 10/11/18 1557 10/11/18 1557 Laboratory Hematology Test 10/11/18 15:57 10/11/18 17:27 Red Blood Count 5.30 M/uL (4.00-5.60) Mean Corpuscular Volume 83.8 fL (80.0-96.0) Mean Corpuscular Hemoglobin 28.2 pg (26.0-33.0) Mean Corpuscular Hemoglobin Concent 33.6 g/dL (32.0-36.0) Red Cell Distribution Width 15.3 % (11.5-14.5) Mean Platelet Volume 8.1 fL (7.2-11.1) Neutrophils (%) (Auto) 97.1 % (39.4-72.5) Lymphocytes (%) (Auto) 1.3 % (17.6-49.6) Monocytes (%) (Auto) 1.5 % (4.1-12.4) Eosinophils (%) (Auto) 0.0 % (0.4-6.7) Basophils (%) (Auto) 0.1 % (0.3-1.4) Nucleated RBC Relative Count (auto) 0.0 /100WBC Neutrophils # (Auto) 10.1 K/uL (2.0-7.4) Lymphocytes # (Auto) 0.1 K/uL (1.3-3.6) Monocytes # (Auto) 0.2 K/uL (0.3-1.0) Eosinophils # (Auto) 0.0 K/uL (0.0-0.5) Basophils # (Auto) 0.0 K/uL (0.0-0.1) Nucleated RBC Absolute Count (auto) 0.00 K/uL Prothrombin Time 15.5 seconds (12.0-14.4) Prothromb Time International Ratio 1.23 Activated Partial Thromboplast Time 38 seconds (23-35) Sodium Level 142 mmol/L (137-145) Potassium Level 3.9 mmol/L (3.5-5.0) Chloride Level 101 mmol/L (98-107) Carbon Dioxide Level 24 mmol/L (22-30) Blood Urea Nitrogen 39 mg/dl (9-21) Creatinine 2.40 mg/dl (0.66-1.25) Glomerular Filtration Rate Calc 27.9 Random Glucose 108 mg/dl (75-110) Lactate 4.3 mmol/L (0.7-2.1) Calcium Level 9.3 mg/dl (8.4-10.2) Total Bilirubin 0.7 mg/dl (0.2-1.3) Aspartate Amino Transf (AST/SGOT) 35 U/L (0-35) Alanine Aminotransferase (ALT/SGPT) 28 U/L (0-56) Alkaline Phosphatase 111 U/L (0-126) Total Protein 6.8 g/dl (6.3-8.2) Albumin 4.0 g/dl (3.5-5.0) Urine Color Yellow Urine Clarity Slightly-cloudy Urine pH 6.0 pH (4.8-9.5) Urine Specific Clayton 1.020 Urine Protein Negative mg/dL (NEGATIVE) Urine Glucose (UA) Negative mg/dL (NEGATIVE) Urine Ketones Trace mg/dL (NEGATIVE) Urine Blood Negative (NEGATIVE) Urine Nitrite Negative (NEGATIVE) Urine Bilirubin Negative (NEGATIVE) Urine Urobilinogen 2.0 mg/dL (0.2-1.9) Urine Leukocyte Esterase Negative (NEGATIVE) Urine RBC 1 /HPF (0-2/HPF) Urine WBC 3 /HPF (0-5/HPF) Urine Squamous Epithelial Cells None /LPF (NONE-FEW) Urine Renal Epithelial Cells Moderate /LPF (NONE-FEW) Urine Bacteria Few /HPF (NONE-FEW) Urine Hyaline Casts Many /LPF (NONE-FEW) Urine Mucus Few /HPF (NONE-FEW) Chemistry Test 10/11/18 15:57 10/11/18 17:27 White Blood Count 10.4 k/uL (4.5-11.0) Red Blood Count 5.30 M/uL (4.00-5.60) Hemoglobin 14.9 g/dL (14.0-18.0) Hematocrit 44.4 % (42.0-52.0) Mean Corpuscular Volume 83.8 fL (80.0-96.0) Mean Corpuscular Hemoglobin 28.2 pg (26.0-33.0) Mean Corpuscular Hemoglobin Concent 33.6 g/dL (32.0-36.0) Red Cell Distribution Width 15.3 % (11.5-14.5) Platelet Count 222 K/uL (150-450) Mean Platelet Volume 8.1 fL (7.2-11.1) Neutrophils (%) (Auto) 97.1 % (39.4-72.5) Lymphocytes (%) (Auto) 1.3 % (17.6-49.6) Monocytes (%) (Auto) 1.5 % (4.1-12.4) Eosinophils (%) (Auto) 0.0 % (0.4-6.7) Basophils (%) (Auto) 0.1 % (0.3-1.4) Nucleated RBC Relative Count (auto) 0.0 /100WBC Neutrophils # (Auto) 10.1 K/uL (2.0-7.4) Lymphocytes # (Auto) 0.1 K/uL (1.3-3.6) Monocytes # (Auto) 0.2 K/uL (0.3-1.0) Eosinophils # (Auto) 0.0 K/uL (0.0-0.5) Basophils # (Auto) 0.0 K/uL (0.0-0.1) Nucleated RBC Absolute Count (auto) 0.00 K/uL Prothrombin Time 15.5 seconds (12.0-14.4) Prothromb Time International Ratio 1.23 Activated Partial Thromboplast Time 38 seconds (23-35) Glomerular Filtration Rate Calc 27.9 Lactate 4.3 mmol/L (0.7-2.1) Calcium Level 9.3 mg/dl (8.4-10.2) Total Bilirubin 0.7 mg/dl (0.2-1.3) Aspartate Amino Transf (AST/SGOT) 35 U/L (0-35) Alanine Aminotransferase (ALT/SGPT) 28 U/L (0-56) Alkaline Phosphatase 111 U/L (0-126) Total Protein 6.8 g/dl (6.3-8.2) Albumin 4.0 g/dl (3.5-5.0) Urine Color Yellow Urine Clarity Slightly-cloudy Urine pH 6.0 pH (4.8-9.5) Urine Specific Clayton 1.020 Urine Protein Negative mg/dL (NEGATIVE) Urine Glucose (UA) Negative mg/dL (NEGATIVE) Urine Ketones Trace mg/dL (NEGATIVE) Urine Blood Negative (NEGATIVE) Urine Nitrite Negative (NEGATIVE) Urine Bilirubin Negative (NEGATIVE) Urine Urobilinogen 2.0 mg/dL (0.2-1.9) Urine Leukocyte Esterase Negative (NEGATIVE) Urine RBC 1 /HPF (0-2/HPF) Urine WBC 3 /HPF (0-5/HPF) Urine Squamous Epithelial Cells None /LPF (NONE-FEW) Urine Renal Epithelial Cells Moderate /LPF (NONE-FEW) Urine Bacteria Few /HPF (NONE-FEW) Urine Hyaline Casts Many /LPF (NONE-FEW) Urine Mucus Few /HPF (NONE-FEW) Coagulation Test 10/11/18 15:57 Prothrombin Time 15.5 seconds Prothromb Time International Ratio 1.23 Activated Partial Thromboplast Time 38 seconds Urinalysis Test 10/11/18 17:27 Urine Color Yellow Urine Clarity Slightly-cloudy Urine pH 6.0 pH (4.8-9.5) Urine Specific Clayton 1.020 Urine Protein Negative mg/dL (NEGATIVE) Urine Glucose (UA) Negative mg/dL (NEGATIVE) Urine Ketones Trace mg/dL (NEGATIVE) Urine Blood Negative (NEGATIVE) Urine Nitrite Negative (NEGATIVE) Urine Bilirubin Negative (NEGATIVE) Urine Urobilinogen 2.0 mg/dL (0.2-1.9) Urine Leukocyte Esterase Negative (NEGATIVE) Urine RBC 1 /HPF (0-2/HPF) Urine WBC 3 /HPF (0-5/HPF) Urine Squamous Epithelial Cells None /LPF (NONE-FEW) Urine Renal Epithelial Cells Moderate /LPF (NONE-FEW) Urine Bacteria Few /HPF (NONE-FEW) Urine Hyaline Casts Many /LPF (NONE-FEW) Urine Mucus Few /HPF (NONE-FEW) EKG/Imaging Imaging PATIENT NAME: Ramu Carney : 1960 MR: [id number] V: [id number] EXAM DATE: ORDERING PHYSICIAN: DIAMANTE SCHMIDT TECHNOLOGIST: Location: [facility] [place] Patient: Ramu Carney : 1960 Visit/Account:[id number] Date of Sevice: 10/11/2018 EXAMINATION: Right foot series, 3 views 10/11/2018 3:47 PM HISTORY: Evaluate for osteoarthritis. COMPARISON: The right-sided comparisons available. FINDINGS: Metallic and bony arthrodesis along the talocalcaneal and the calcaneocuboid joints. Spurring or buttressing along the talonavicular articulation. There is soft tissue swelling in the forefoot. No foreign body or localized soft tissue gas collection. No periosteal reaction or bony lytic change to indicate osteomyelitis. IMPRESSION: Soft tissue swelling. No radiographic features of osteomyelitis in the right foot. If clinically indicated, MR has higher sensitivity. Report Dictated By: Matty Strickland MD at 10/11/2018 4:28 PM Report E-Signed By: Matty Strickland MD at 10/11/2018 4:31 PM STEPHANYN:[facility] ED Course/Re-evaluation Clinical Indication for ER IV: Hydration, IV Access ED Course The patient was admitted to a room. A history and physical were obtained. Differential diagnoses were considered. IV was started. A CBC, CMP, lactate, blood cultures were obtained. Sepsis protocol initiated, CBC showing normal wh ite count with a left shift, chemistry showing BUN 29 creatinine 2.40, lactate of 4.3, INR 1.23, UA likely contaminated. As there was concern of osteomyelitis, I did x-ray the right lower extremity which was negative. Given the abruptness of the infection of the right lower extremity, I did start the patient on Zosyn although his renal function is 2.40, felt this was necessary at the time, he was also given a liter of fluid, vancomycin was also ordered. I did recommended admission, patient was agreeable, did speak with Dr. Valenzuela, the hospitalist on- call, has accepted the patient in the hospitalist services for right lower extremity cellulitis and sepsis. 10/11/2018 5:08:[address] Valenzuela, the hospitalist [employer] regarding the patient's case, he is accepting the patient in the hospitalist services for right lower extremities cellulitis and sepsis. Decision to Disposition Date: October 11, 2018 Decision to Disposition Time: 17:08 Depart Departure Latest Vital Signs Vital Signs Date Time Temp Pulse Resp B/P (MAP) Pulse Ox O2 Delivery O2 Flow Rate FiO2 10/11/18 17:25 98 20 94 10/11/18 17:15 93/45 (61) 10/11/18 15:29 98.9 Room Air Impression: Primary Impression: Sepsis Additional Impressions: Cerebral palsy Cellulitis of right lower leg Condition: Improved Disposition: HOME OR SELF-CARE Referrals: SHANNEN MILLIGAN MD (PCP) Problem Qualifiers Primary Impression: Sepsis Sepsis type: sepsis due to unspecified organism Qualified Codes: A41.9 - Sepsis, unspecified organism Additional Impressions: Cerebral palsy Cerebral palsy type: unspecified type Qualified Codes: G80.9 - Cerebral palsy, unspecified DIAMANTE SCHMIDT BITUMINOUS DISTRIBUTOR OPERATOR-BC October 11, 2018 15:34
[2018-10-11] MEDS ORDERED: NS 0.9% IV ONE ×2 (15:50→19:35)
[2018-10-11 16:17] LABS: PLATELET COUNT, AUTOMATED 222 K/uL (150-450)
[2018-10-11 16:22] LABS: INR 1.23
--- NOTE | 2018-10-11 16:36 | RADIOLOGY IMAGING REPORT ---
[facility] PATIENT NAME: Ramu Carney : 1960 MR: [id number] V: [id number] EXAM DATE: ORDERING PHYSICIAN: DIAMANTE SCHMIDT TECHNOLOGIST: Location: [facility] Patient: Ramu Carney : 1960 Visit/Account:[id number] Date of Sevice: 10/11/2018 EXAMINATION: Right foot series, 3 views 10/11/2018 3:47 PM HISTORY: Evaluate for osteoarthritis. COMPARISON: The right-sided comparisons available. FINDINGS: Metallic and bony arthrodesis along the talocalcaneal and the calcaneocuboid joints. Spur ring or buttressing along the talonavicular articulation. There is soft tissue swelling in the foref oot. No foreign body or localized soft tissue gas collection. No periosteal reaction or bony lytic change to indicate osteomyelitis. IMPRESSION: Soft tissue swelling. No radiographic features of osteomyelitis in the right foot. If clinically in dicated, MR has higher sensitivity. Report Dictated By: Matty Strickland MD at 10/11/2018 4:28 PM Report E-Signed By: Matty Strickland MD at 10/11/2018 4:31 PM WSN:TEO
[2018-10-11] MEDS ORDERED: VANCOMYCIN(*) 1 GM VIAL 2.25 GM in NS(*) 0.9% 250 ML BAG 250 ML IVPB ONE (16:55)
[2018-10-11] MEDS ORDERED: PIPERACILLIN/TAZO*3.375GM VIAL 3.375 GM in NS(*) 0.9% 100 ML MINI-BAG 100 ML IVPB ONE (16:55)
[2018-10-11] MEDS ORDERED: fentaNYL CITR 100 MCG/2 ML AMP IVP ONE (17:10)
[2018-10-11 19:19] VITALS: BP 81/53
[2018-10-11 19:22] VITALS: BP 91/52
[2018-10-11] MEDS ORDERED: INFLUENZA VIRUS VAC 0.5ML SYR IM ONLY ONE (19:35)
--- NOTE | 2018-10-11 19:47 | History & Physical ---
History of Present Illness Chief Complaint Leg redness History of Present Illness This patient presented to the emergency room complaining of redness to the right lower leg. He noticed some redness over the last week, but has really progressed over the last 24hrs. He has also noted fever and chills. History Problems: (1) Cerebral palsy Status: Chronic (2) Neurogenic bladder Status: Chronic (3) Depression Status: Chronic (4) BPH (benign prostatic hypertrophy) Status: Chronic (5) GERD (gastroesophageal reflux disease) Status: Chronic Home Meds Active Scripts Penicillin V Potassium 500 Mg Tab (PENICILLIN V POTASSIUM 500 MG TAB) 500 Mg Tablet, 500 MG PO QID, #36 TAB Prov:KAUR DESHPANDE MD 06/02/18 Reported Medications Docusate Sodium (COLACE) 100 Mg Capsule, 100 MG PO BID, #30 CAPSULE 10/05/17 Modafinil (MODAFINIL) 100 Mg Tablet, 150 MG PO PRN 09/22/17 Calcium Carbonate (CALCIUM) 500 Mg Tablet, 2000 MG PO QDAY 06/12/16 Multivitamin (MULTI VITAMIN DAILY) 1 Each Tablet, 1 EACH PO QDAY 06/12/16 Oxybutynin Chloride (OXYBUTYNIN CHLORIDE ER) 10 Mg Tab.er.24, 10 MG PO BID, TAB.SR 06/12/16 Tamsulosin Hcl (FLOMAX) 0.4 Mg Cap.er.24h, 0.4 MG PO DAILY 02/23/15 Baclofen (LIORESAL INTRATHECAL) 50 Mcg/1 Ml Ampul, 165 MCG IT DAILY Continuous Infusion via inserted pump 02/23/15 Vilazodone Hydrochloride (VIIBRYD) 40 Mg Tablet, 40 MG PO QDAY 02/21/12 Al Hydrox/Mg Trisilicate (Gaviscon) 1 Ea Chew, 4 EA PO QHS 02/21/12 Acetaminophen/Diphenhydramine (TYLENOL PM (OR EQUIV) 500/25 MG (PATIENT OWN) 1 Each Tablet, 1 TAB PO QHS PRN 325/25 02/20/12 Ranitidine Hcl (Zantac) 150 Mg Tab, 150 MG PO 1-2XD, 0 Refills 01/26/10 Allergies: Coded Allergies: latex (Verified Allergy, Severe, 10/11/18) sertraline (Verified Allergy, Severe, RASH, 10/11/18) codeine (Verified Adverse Reaction, Intermediate, NAUSEA/VOMITING, 10/11/18) Patient History: FH: thyroid cancer FATHER, , Age:83 Hx Smoking: No Exposure to Second Hand Smoke?: No Caffeine Intake: Soda Caffeine/Cups Per Day: 1-2 A DAY Hx Alcohol Use: No Hx Substance Use Disorder: No Social Drug Use: Never Review of Systems All Systems Reviewed/Normal: Yes, Except as Noted Constitutional: Fever, Chills Exam Vital Signs Vital Signs Date Time Temp Pulse Resp B/P (MAP) Pulse Ox O2 Delivery O2 Flow Rate FiO2 10/11/18 19:19 98.7 16 81/53 (62) 92 Room Air 10/11/18 18:00 77 Neuro: No Gross deficits Eyes: PERRLA Cardiovascular: Regular Rate and Rhythm Respiratory: Clear to Auscultation GI: Abd Soft and Non-Tender Extremities: Other (Erythema right lower leg with ink line drawn.) Medical Decision Making Data Points Result Diagram: 10/11/18 8101 10/11/18 5385 Assessment and Plan Problems: (1) Cellulitis of right lower leg Status: Acute Assessment & Plan: He did present with erythema of the right lower leg. He has been started on empiric treatment with Zosyn. He received a loading dose of vancomycin in the emergency department. A trough level has been ordered for 24hrs in case this needs to be continued. (2) Sepsis Status: Resolved Assessment & Plan: He does have an elevated lactate level. He has been started on fluid resuscitation and a lactate series has been ordered. (3) ARF (acute renal failure) Assessment & Plan: He has been started on IV fluids and a repeat chemistry is ordered for the morning. (4) Cerebral palsy Status: Chronic Assessment & Plan: He does have a baclofen pump, which has been continued. Copies to: SHANNEN MILLIGNA MD ; Venous Thromboembolism Antithrombotics Is Pt On Any Antithrombotics?: No Exam Sepsis Risk: No Definite Risk Problem Qualifiers (1) Sepsis: Sepsis type: sepsis due to unspecified organism Qualified Codes: A41.9 - Sepsis, unspecified organism (2) Cerebral palsy: Cerebral palsy type: unspecified type Qualified Codes: G80.9 - Cerebral palsy, unspecified SHANNEN CAI DO October 11, 2018 19:47
[2018-10-11] MEDS: DOCUSATE SODIUM 100 MG CAP PO SCH (21:34)
[2018-10-11] MEDS: OXYBUTYNIN CHL XL 5 MG TABCR PO SCH (21:35)
[2018-10-11] MEDS: PIPERACILLIN/TAZO*3.375GM VIAL 3.375 GM in NS(*) 0.9% 100 ML MINI-BAG 100 ML IVPB SCH (23:05)
[2018-10-12] VITALS (7 sets, daily range): BP systolic 92–114; BP diastolic 43–72
[2018-10-12] MEDS: NS(*) 0.9% 1000 ML BAG 1,000 ML IV SCH ×3 (02:34→16:57)
[2018-10-12] MEDS: PIPERACILLIN/TAZO*3.375GM VIAL 3.375 GM in NS(*) 0.9% 100 ML MINI-BAG 100 ML IVPB SCH (05:24)
[2018-10-12 06:22] LABS: PLATELET COUNT, AUTOMATED 124 K/uL (150-450)
[2018-10-12] MEDS: TAMSULOSIN HCL 0.4 MG CAP PO SCH ×3 (08:54→20:23)
[2018-10-12] MEDS: OXYBUTYNIN CHL XL 5 MG TABCR PO SCH ×2 (08:54→20:22)
[2018-10-12] MEDS: ENOXAPARIN 30 MG/0.3 ML SYR SC SCH (08:55)
[2018-10-12] MEDS ORDERED: [UNRECOGNIZED DRUG - OTHER] INTRATHEC SCH (09:00)
[2018-10-12] MEDS ORDERED: BACLOFEN INTRATHEC SCH (09:00)
--- NOTE | 2018-10-12 10:54 | Hospitalist Progress Note ---
Subjective Progress Notes Subjective He was admitted with cellulitis and sepsis. He reports improvement in symptoms. He had no acute events overnight. Patient Complains of: Cardiovascular: No: Chest Pain Respiratory: No: Shortness of Breath Physical Exam Vital Signs Date Time Temp Pulse Resp B/P (MAP) Pulse Ox O2 Delivery O2 Flow Rate FiO2 10/12/18 07:34 98.6 100 16 92/43 (59) 91 Room Air Intake and Output 10/12/18 06:59 Intake Total 5565 ml Output Total 475 ml Balance 5090 ml IV Total 5565 ml Output Urine Total 475 ml General Appearance: Alert, Awake, No Acute Distress, Afebrile Neuro: No Gross deficits Cardiovascular: Regular Rate and Rhythm Respiratory: No Respiratory Distress, Clear to Auscultation Extremities: Warm, Perfused, Edema (2+ edema), Other (cellulitis to right lower extremity shows minor improvement, hot to touch, beefy red in appearance) Psych: Alert & Oriented X3, Appropriate Mood & Affect Result Diagram: 10/12/1860710/12/18607 Assessment and Plan Problems: (1) Cellulitis of right lower leg Status: Acute Assessment & Plan: He did present with erythema of the right lower leg. He was started on empiric treatment with Zosyn, but was switched to Cefepime. He received a loading dose of vancomycin in the emergency department. A trough level has been ordered for 24hrs to continue Vanco. (2) Sepsis Status: Resolved Assessment & Plan: He does have an elevated lactate level. He was given fluid resuscitation and a lactate series was ordered and is now normal. (3) ARF (acute renal failure) Assessment & Plan: Creatinine improving with IV fluids. Will obtain BMP this afternoon. (4) Cerebral palsy Status: Chronic Assessment & Plan: He does have a baclofen pump, which has been continued. Exam Sepsis Risk: No Definite Risk Problem Qualifiers (1) Sepsis: Sepsis type: sepsis due to unspecified organism Qualified Codes: A41.9 - Sepsis, unspecified organism (2) Cerebral palsy: Cerebral palsy type: unspecified type Qualified Codes: G80.9 - Cerebral palsy, unspecified CHRISTOPH POWER CUSTOM WOOD STAIR BUILDER October 12, 2018 10:54
[2018-10-12] MEDS: CEFEPIME HCL 2 GM VIAL IVP SCH (11:03)
--- NOTE | 2018-10-12 14:44 | Medical Nutrition Therapy ---
Nutrition Anthropometrics Height (Inches): 70.00 Height (Calculated Centimeters: [phone] Weight (Pounds): 198 (Wt appears stable May 2018-199 lbs) Weight (Calculated Kilograms): 90.180 BMI: 28.5 Jerad Nutrition Score: Adequate Jerad Nutrition Risk Score: 15 Dietary Referral Nutrition Risk Factors: Nutrition Risk Comment: Physical Findings Physical Appearance: Overweight BMI 25-29 Skin Appearance Skin Appearance: Edema Edema Location Modifier: Left Edema Location: Lower Extremity Type of Edema: Degree of Edema: 2+ Gastrointestinal Symptoms GI Symtoms: Tube Present: Bowel Sounds: Recent Bowel Pattern: Stool Characteristics: Nutrition/Food History No Significant Nutr. HX Good Nutritional Diagnosis Nutritional Risk Acuity 1: Acute/ES Renal Nutritional Risk Acuity 3: GERD Nutritional Risk Acuity 4: Good Appetite Past Medical History: CP, GERD, depression, ADEOLA Nutritional Acuity: 1-High Nutrition Diagnosis: Decreased Nutrient Needs Nutrition Etiology: Physiological Causes Nutrition Problem/Etiology/Sym: ARF, reduced need for potassium, sodium Energy Requirement: 2700 (30kcal/kg (JUAN recommended 30-40kcal/kg)) Protein Requirement: 72 (.8g/kg) Fluid Requirement: 2700 (1mL/kcal) Diet Type: Regular Nutrition Monitoring & Eval Nutrition Goals: Eat 75-100% Meal Nutrition Follow-Up: Good Intake RD Patient Assessment Time: [address] Assessment Type: RD Assessment Patient Nutrition Acuity: 1-High Follow Up Date: Oct 15, 2018 Nutritional Comment: Reviewed pt medical history. Admitted with chief complaint of redness. Pt found to have JUAN, cellulitis. Reviewed labs K+, Na WNL. Monitor renal labs and restrict via diet if necessary. KIRT REAL October 12, 2018 14:22
[2018-10-12] MEDS: VILAZODONE HCL 40 MG TAB PO SCH (16:05)
[2018-10-12] MEDS: DOCUSATE SODIUM 100 MG CAP PO SCH ×2 (16:06→20:23)
[2018-10-12] MEDS: VANCOMYCIN(*) 1 GM VIAL 1 GM, VANCOMYCIN (*) 0.5 GM VIAL 0.25 GM in NS(*) 0.9% 250 ML B... IVPB SCH (17:41)
--- NOTE | 2018-10-12 18:18 | Antimicrobial Stewardship ---
Antimicrobial Time Out Antimicrobial Stewardship MD Service: Hospitalist Indications: Cellulitis Antimicrobial Used zosyn 3.375g IV x24 hrs (stopped), vancomycin 2.25g load x1 then 1250mg Q12H after 24hr, cefepime 2g ivp qday Start Date: October 11, 2018 Culture Results: No Eligible for PO Conversion Eligable for PO Conversion: No Reviewed with Provider Reviewed w/ Provider on Rounds: Yes Date Reviewed w/ Provider: October 11, 2018 Comments Comments Patient is admitted for lower leg cellulitis. 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 Continue empiric therapy until cultures indicate targeted therapy. HENRI MARCELINO October 12, 2018 18:18
--- NOTE | 2018-10-12 19:04 | Pharmacy Note ---
Vancomycin Management Note [facility] Dosing Note Pharmacy Services Pharmacokinetic Dosing Consult, Vancomycin Pharmacy has been consulted for dosing and monitoring of vancomycin for 58 yo male for lower leg cellulitis. Pertinent Past Medical History: cerebral palsy (wheel chair bound), history of MRSA infection (cellulitis) Antibiotics prior to admission; NO {YES/NO/UNKNOWN} Additional Antimicrobials: ZOSYN 3.375G Q6H Start 10/11/18 , Stop 10/12/18 VANCOMYCIN 2.25G LOAD X1 ON 10/11/18 Patient Information: Height (cm): 177.8 cm Actual Body Weight (ABW): 90 kg Pertinent Lab Tests WHITE BLOOD COUNT 7 NEUTROPHILS 90.6% BLOOD UREA NITROGEN 32 SCR 1.6 (down from 2.4) VANCOMYCIN TROUGH VANCOMYCIN RANDOM 10.58 24hrs post load Culture Results: BLOOD -pending URINE * SPUTUM * WOUND * Assessment: CrCl ~45 ml/min Renal function is improving Vancomycin Monitoring Assessment Goal Vancomycin Trough Level: 15-20 Plan: 1) Vancomycin 25 mg/kg loading dose (based on ABW): 2250 mg IV x 1 in ER on 10/11/18 @1700 2) Vancomycin maintenance dose (based on ABW): 1250mg Q12h based on improving renal labs 3) Vancomycin monitoring: check trough 10/13/18 @1700 Pharmacy will continue to monitor daily and adjust regimen as appropriate. Thank you for the consult. HENRI MARCELINO October 12, 2018 19:04
[2018-10-13] MEDS: NS(*) 0.9% 1000 ML BAG 1,000 ML IV SCH (03:39)
[2018-10-13 03:47] VITALS: BP 123/62
[2018-10-13] MEDS: VANCOMYCIN(*) 1 GM VIAL 1 GM, VANCOMYCIN (*) 0.5 GM VIAL 0.25 GM in NS(*) 0.9% 250 ML B... IVPB SCH (05:42)
[2018-10-13 06:23] LABS: PLATELET COUNT, AUTOMATED 128 K/uL (150-450)
[2018-10-13] MEDS: VILAZODONE HCL 40 MG TAB PO SCH (08:19)
--- NOTE | 2018-10-13 08:22 | Hospitalist Progress Note ---
Subjective Progress Notes Subjective This patient was admitted for cellulitis of the leg. He had no acute issues overnight. Patient Complains of: Cardiovascular: No: Chest Pain Respiratory: No: Shortness of Breath Physical Exam Vital Signs Date Time Temp Pulse Resp B/P (MAP) Pulse Ox O2 Delivery O2 Flow Rate FiO2 10/13/18 03:47 99.8 84 16 123/62 (82) 91 Oxy Mask 0.5 Intake and Output 10/13/18 07:00 Intake Total 1600 ml Output Total 1750 ml Balance -150 ml Intake Oral 600 ml IV Total 1000 ml Output Urine Total 1750 ml # Bowel Movements 1 Cardiovascular: Regular Rate and Rhythm Respiratory: Clear to Auscultation Integumentary: Other (Erythema much improved. Still some edema in right lower leg.) Result Diagram: 10/13/1854710/13/18547 Assessment and Plan Problems: (1) Cellulitis of right lower leg Status: Acute Assessment & Plan: He did present with erythema of the right lower leg. He was started on empiric treatment with Zosyn, but was then switched to Cefepime. He was also started on empiric vancomycin. The vancomycin was stopped today. (2) Sepsis Status: Resolved Assessment & Plan: He does have an elevated lactate level. He was given fluid resuscitation and his lactate is improved. (3) ARF (acute renal failure) Assessment & Plan: Improved with IV fluids. (4) Cerebral palsy Status: Chronic Assessment & Plan: He does have a baclofen pump, which has been continued. Exam Sepsis Risk: No Definite Risk Problem Qualifiers (1) Sepsis: Sepsis type: sepsis due to unspecified organism Qualified Codes: A41.9 - Sepsis, unspecified organism (2) Cerebral palsy: Cerebral palsy type: unspecified type Qualified Codes: G80.9 - Cerebral palsy, unspecified SHANNEN CAI DO Oct 13, 2018 08:22
[2018-10-13] MEDS: DOCUSATE SODIUM 100 MG CAP PO SCH ×2 (09:19→21:20)
[2018-10-13] MEDS: OXYBUTYNIN CHL XL 5 MG TABCR PO SCH ×2 (09:19→21:20)
[2018-10-13] MEDS: ENOXAPARIN 30 MG/0.3 ML SYR SC SCH (09:22)
[2018-10-13] MEDS: NYSTATIN 100,000 U/GM PWD 15GM TP SCH ×2 (09:22→21:19)
[2018-10-13 09:51] VITALS: BP 100/64
[2018-10-13] MEDS: CEFEPIME HCL 2 GM VIAL IVP SCH (11:18)
[2018-10-13 13:10] VITALS: BP 111/72
[2018-10-13 18:14] VITALS: BP 115/67
[2018-10-13] MEDS: TAMSULOSIN HCL 0.4 MG CAP PO SCH (21:20)
[2018-10-14 02:45] VITALS: BP 125/63
[2018-10-14 05:35] LABS: PLATELET COUNT, AUTOMATED 138 K/uL (150-450)
[2018-10-14] MEDS: NAPROXEN 500 MG TAB PO PRN (06:09)
[2018-10-14 07:44] VITALS: BP 110/59
[2018-10-14] MEDS: VILAZODONE HCL 40 MG TAB PO SCH (08:00)
[2018-10-14] MEDS: DOCUSATE SODIUM 100 MG CAP PO SCH ×2 (08:53→20:33)
[2018-10-14] MEDS: OXYBUTYNIN CHL XL 5 MG TABCR PO SCH ×2 (08:53→20:33)
[2018-10-14] MEDS: ENOXAPARIN 30 MG/0.3 ML SYR SC SCH (09:57)
[2018-10-14] MEDS: NYSTATIN 100,000 U/GM PWD 15GM TP SCH ×2 (09:58→20:32)
[2018-10-14] MEDS: CEFDINIR 300 MG CAP PO SCH ×2 (10:04→20:33)
--- NOTE | 2018-10-14 10:50 | Hospitalist Progress Note ---
Subjective Progress Notes Subjective 58M admitted for cellulitis, MELONY overnight. Denies new concerns thsi am, leg continues to improve though remains edematous. Patient Complains of: Respiratory: No: Cough, Shortness of Breath Gastrointestinal: No Nausea, No Vomiting Physical Exam Vital Signs Date Time Temp Pulse Resp B/P (MAP) Pulse Ox O2 Delivery O2 Flow Rate FiO2 10/14/18 07:50 93 Oxy Mask 2.5 10/14/18 07:44 98.3 77 14 110/59 (76) l Intake and Output 10/14/18 07:00 Intake Total 1780 ml Output Total 3575 ml Balance -1795 ml Intake Oral 1780 ml Output Urine Total 3575 ml General Appearance: Alert, Awake, No Acute Distress Eyes: PERRLA ENT: Normal Cardiovascular: Normal Rhythm & Peripheral Pulses Respiratory: No Respiratory Distress Extremities: Soft and Non Tender, Warm, Pulses, Perfused, Edema (R > L) Integumentary: Other (improving RLE erythema) Result Diagram: 10/14/18 0505 10/14/18 0505 Assessment and Plan Problems: (1) Cellulitis of right lower leg Status: Acute Assessment & Plan: He did present with erythema of the right lower leg. He was started on empiric treatment with Zosyn, but was then switched to Cefepime. He was also started on empiric vancomycin. The vancomycin was stopped 10.13, will deescalate to Cefdinir today. (2) Sepsis Status: Resolved Assessment & Plan: He did have an elevated lactate level. He was given fluid resuscitation and his lactate is improved. (3) ARF (acute renal failure) Assessment & Plan: Improved with IV fluids. (4) Cerebral palsy Status: Chronic Assessment & Plan: He does have a baclofen pump, which has been continued. Exam Sepsis Risk: No Definite Risk Problem Qualifiers (1) Sepsis: Sepsis type: sepsis due to unspecified organism Qualified Codes: A41.9 - Sepsis, unspecified organism (2) Cerebral palsy: Cerebral palsy type: unspecified type Qualified Codes: G80.9 - Cerebral palsy, unspecified ARTHUR SAMUEL DO Oct 14, 2018 10:50
[2018-10-14 14:50] VITALS: BP 118/78
[2018-10-14 19:48] VITALS: BP 123/68
[2018-10-14] MEDS: TAMSULOSIN HCL 0.4 MG CAP PO SCH (20:32)
[2018-10-14 23:14] VITALS: BP 122/74
[2018-10-15 07:00] VITALS: BP 126/69
[2018-10-15] MEDS: VILAZODONE HCL 40 MG TAB PO SCH (08:13)
[2018-10-15] MEDS: OXYBUTYNIN CHL XL 5 MG TABCR PO SCH ×2 (08:15→21:39)
[2018-10-15] MEDS: CEFDINIR 300 MG CAP PO SCH (08:15)
[2018-10-15] MEDS: DOCUSATE SODIUM 100 MG CAP PO SCH ×2 (08:15→21:38)
[2018-10-15] MEDS: ENOXAPARIN 30 MG/0.3 ML SYR SC SCH (08:16)
[2018-10-15] MEDS: NYSTATIN 100,000 U/GM PWD 15GM TP SCH ×2 (09:42→21:39)
--- NOTE | 2018-10-15 09:49 | Hospitalist Progress Note ---
Subjective Progress Notes Subjective He was admitted with cellulitis of his right lower extremity. He was transitioned to Omnicef yesterday, but appears to have increased erythema to the lower extremity than yesterday. Patient Complains of: Cardiovascular: No: Chest Pain Respiratory: No: Shortness of Breath Physical Exam Vital Signs Date Time Temp Pulse Resp B/P (MAP) Pulse Ox O2 Delivery O2 Flow Rate FiO2 10/15/18 09:00 96 Room Air 10/15/18 07:00 98.2 69 20 126/69 (88) 1.0 Intake and Output 10/15/18 01:00 Intake Total 1091 ml Output Total 3650 ml Balance -2559 ml Intake Oral 1091 ml Output Urine Total 3650 ml # Bowel Movements 1 General Appearance: Alert, Awake, No Acute Distress, Afebrile Neuro: No Gross deficits Cardiovascular: Regular Rate and Rhythm Respiratory: No Respiratory Distress, Clear to Auscultation GI: Soft and Non-Tender Psych: Alert & Oriented X3, Appropriate Mood & Affect Result Diagram: 10/14/18 0505 10/14/18 0505 Assessment and Plan Problems: (1) Cellulitis of right lower leg Status: Acute Assessment & Plan: He did present with erythema of the right lower leg. He was started on empiric treatment with Zosyn, but was then switched to Cefepime. He was also started on empiric vancomycin. The vancomycin was stopped 10.13, he was then placed on Cefdinir 10/14, with worsening erythema. He will be placed back on Cefepime today. (2) Sepsis Status: Resolved Assessment & Plan: He did have an elevated lactate level. He was given fluid resuscitation and his lactate is improved. (3) ARF (acute renal failure) Assessment & Plan: Improved with IV fluids. (4) Cerebral palsy Status: Chronic Assessment & Plan: He does have a baclofen pump, which has been continued. Exam Sepsis Risk: No Definite Risk Problem Qualifiers (1) Sepsis: Sepsis type: sepsis due to unspecified organism Qualified Codes: A41.9 - Sepsis, unspecified organism (2) Cerebral palsy: Cerebral palsy type: unspecified type Qualified Codes: G80.9 - Cerebral palsy, unspecified CHRISTOPH POWER [facility] Oct 15, 2018 09:48
[2018-10-15] MEDS: CEFEPIME HCL 2 GM VIAL IVP SCH (10:23)
[2018-10-15 10:33] VITALS: BP 102/57
--- NOTE | 2018-10-15 15:26 | NUR ---
Physical Therapy Impression PT wound eval completed: Non-selective cleansing of disrupted blister at R) lateral foot. No debridement indicated currently. Wound cleansed with gauze and sterile saline and covered with silver collagen matrix product, followed by optilock for absorption and secured with clarice wrap. Blister to R) anterior yousif is currently intact and this was protected with telfa pad and also secured with clarice wrap for light compression and ease of removal for inspection as needed. Nursing to change dressing as needed if this becomes dislodged, contaminated or overly saturated. Pt to re-eval for further needs and effectiveness of dressing at end of week. Physical Therapy Goals Patient's Goals
[2018-10-15 15:28] VITALS: BP 111/80
--- NOTE | 2018-10-15 15:47 | Medical Nutrition Therapy ---
Nutrition Anthropometrics Height (Inches): 70.00 Height (Calculated Centimeters: 177.522636 Weight (Pounds): 198 (Wt appears stable May 2018-199 lbs) Weight (Calculated Kilograms): 90.180 BMI: 28.5 Jerad Nutrition Score: Adequate Jerad Nutrition Risk Score: 15 Dietary Referral Nutrition Risk Factors: Nutrition Risk Comment: Physical Findings Physical Appearance: Overweight BMI 25-29 Skin Appearance Skin Appearance: Edema Edema Location Modifier: Both Edema Location: Upper Extremity Type of Edema: Degree of Edema: 1+ Pitting Gastrointestinal Symptoms GI Symtoms: Tube Present: Bowel Sounds: Hypoactive Recent Bowel Pattern: Stool Characteristics: Nutritional Diagnosis Nutritional Risk Acuity 1: Acute/ES Renal Nutritional Risk Acuity 3: GERD Nutritional Risk Acuity 4: Good Appetite Past Medical History: CP, GERD, depression, ADEOLA Nutritional Acuity: 1-High Nutrition Diagnosis: Decreased Nutrient Needs Nutrition Etiology: Physiological Causes Nutrition Problem/Etiology/Sym: ARF, reduced need for potassium, sodium Energy Requirement: 2700 (30kcal/kg (JUAN recommended 30-40kcal/kg)) Protein Requirement: 72 (.8g/kg) Fluid Requirement: 2700 (1mL/kcal) Diet Type: Regular Nutrition Monitoring & Eval RD Patient Assessment Time: [address] Assessment Type: RD Re-Assessment Patient Nutrition Acuity: 1-High Follow Up Date: Oct 15, 2018 Nutritional Comment: Reviewed pt medical history. Admitted with chief complaint of redness. Pt found to have JUAN, cellulitis. Reviewed labs K+, Na WNL. Monitor renal labs and restrict via diet if necessary. 10/15/18-Reviewed charting. Pt eating well 96% x last 6 meals. No new weight. Na and K+ WNL. Cre still elevated. Has edema BLE 1+. Recommend continue PIPPA with no restrictions. Will continue to monitor intake,weight, renal labs. KIRT REAL Oct 15, 2018 15:39
[2018-10-15] MEDS: TAMSULOSIN HCL 0.4 MG CAP PO SCH (21:38)
[2018-10-15] MEDS: RANITIDINE HCL 150 MG TAB PO PRN (21:38)
[2018-10-15] MEDS: NAPROXEN 500 MG TAB PO PRN (21:38)
[2018-10-15 22:01] VITALS: BP 120/63
[2018-10-16 03:34] VITALS: BP 115/62
[2018-10-16 06:17] LABS: PLATELET COUNT, AUTOMATED 180 K/uL (150-450)
[2018-10-16 07:13] VITALS: BP 109/67
[2018-10-16] MEDS: VILAZODONE HCL 40 MG TAB PO SCH (08:43)
--- NOTE | 2018-10-16 08:56 | Hospitalist Progress Note ---
Subjective Progress Notes Subjective He was admitted with cellulitis. He had no acute events overnight. Patient Complains of: Cardiovascular: No: Chest Pain Respiratory: No: Shortness of Breath Physical Exam Vital Signs Date Time Temp Pulse Resp B/P (MAP) Pulse Ox O2 Delivery O2 Flow Rate FiO2 10/16/18 07:13 98.6 96 16 109/67 (81) 88 Room Air 10/16/18 03:34 1.0 Intake and Output 10/16/18 01:00 Intake Total 540 ml Output Total 2500 ml Balance -1960 ml Intake Oral 540 ml Output Urine Total 2500 ml General Appearance: Alert, Awake, No Acute Distress, Afebrile Neuro: No Gross deficits Cardiovascular: Regular Rate and Rhythm Respiratory: No Respiratory Distress, Clear to Auscultation Extremities: Warm, Perfused, Edema (2+ pitting edema) Integumentary: Other (cellulitis improving since day prior, less erythema) Psych: Alert & Oriented X3, Appropriate Mood & Affect Result Diagram: 10/16/1851810/16/18518 Assessment and Plan Problems: (1) Cellulitis of right lower leg Status: Acute Assessment & Plan: He did present with erythema of the right lower leg. He was started on empiric treatment with Zosyn, but was then switched to Cefepime. He was also started on empiric vancomycin. The vancomycin was stopped 06.01, he was then placed on Cefdinir 6/2, with worsening erythema. He was placed back on Cefepime 6/3, with improvement in erythema. Will need to continue Cefepime for a total treatment of 14 days. (2) Sepsis Status: Resolved Assessment & Plan: He did have an elevated lactate level. He was given fluid resuscitation and his lactate is improved. (3) ARF (acute renal failure) Assessment & Plan: Improved with IV fluids. (4) Cerebral palsy Status: Chronic Assessment & Plan: He does have a baclofen pump, which has been continued. Exam Sepsis Risk: No Definite Risk Problem Qualifiers (1) Sepsis: Sepsis type: sepsis due to unspecified organism Qualified Codes: A41.9 - Sepsis, unspecified organism (2) Cerebral palsy: Cerebral palsy type: unspecified type Qualified Codes: G80.9 - Cerebral pals y, unspecified CHRISTOPH POWER [facility] Oct 16, 2018 08:56
[2018-10-16] MEDS: DOCUSATE SODIUM 100 MG CAP PO SCH ×2 (09:12→21:31)
[2018-10-16] MEDS: OXYBUTYNIN CHL XL 5 MG TABCR PO SCH ×2 (09:12→21:31)
[2018-10-16] MEDS: CEFEPIME HCL 2 GM VIAL IVP SCH (09:13)
[2018-10-16] MEDS: NYSTATIN 100,000 U/GM PWD 15GM TP SCH ×2 (09:13→21:31)
[2018-10-16] MEDS: ENOXAPARIN 30 MG/0.3 ML SYR SC SCH (09:14)
[2018-10-16] MEDS ORDERED: CEFEPIME HCL 2 GM VIAL IVP SCH (10:00)
[2018-10-16] MEDS ORDERED: DIPH-618 PO (12:54)
[2018-10-16] MEDS ORDERED: NAPR220C12 PO (12:54)
[2018-10-16] MEDS ORDERED: NS(*) 0.9% 10 ML VIAL 20 ML ONE (13:16)
--- NOTE | 2018-10-16 13:46 | Medical Nutrition Therapy ---
Nutrition Anthropometrics Height (Inches): 70.00 Height (Calculated Centimeters: 177.127092 Weight (Pounds): 198 (Wt appears stable May 2018-199 lbs) Weight (Calculated Kilograms): 90.180 BMI: 28.5 Jerad Nutrition Score: Adequate Jerad Nutrition Risk Score: 15 Dietary Referral Nutrition Risk Factors: Nutrition Risk Comment: Nutritional Diagnosis Nutritional Risk Acuity 1: Acute/ES Renal Nutritional Risk Acuity 3: GERD Nutritional Risk Acuity 4: Good Appetite Past Medical History: CP, GERD, depression, ADEOLA Nutritional Acuity: 1-High Nutrition Diagnosis: Decreased Nutrient Needs Nutrition Etiology: Physiological Causes Nutrition Problem/Etiology/Sym: ARF, reduced need for potassium, sodium Energy Requirement: 2700 (30kcal/kg (JUAN recommended 30-40kcal/kg)) Protein Requirement: 72 (.8g/kg) Fluid Requirement: 2700 (1mL/kcal) Diet Type: Regular Nutrition Intervention: Cont diet as ordered, Encourage intake Nutrition Monitoring & Eval Nutrition Goals: Eat 75-100% Meal Nutrition Follow-Up: Good Intake RD Patient Assessment Time: [address] Assessment Type: RD Re-Assessment Patient Nutrition Acuity: 1-High Follow Up Date: Oct 19, 2018 Nutritional Comment: Reviewed pt medical history. Admitted with chief complaint of redness. Pt found to have JUAN, cellulitis. Reviewed labs K+, Na WNL. Monitor renal labs and restrict via diet if necessary. PARKER 10/15/18-Reviewed charting. Pt eating well 96% x last 6 meals. No new weight. Na and K+ WNL. Cre still elevated. Has edema BLE 1+. Recommend continue PIPPA with no restrictions. Will continue to monitor intake,weight, renal labs. PARKER 10/16 Pt cont on PIPPA, eating 75-100% of meal. BUN 18, creatinine 1.2, now WNR. Will cont to monitor and encourage intake. OSMAN SO Oct 16, 2018 13:46
[2018-10-16 15:20] VITALS: BP 131/71
--- NOTE | 2018-10-16 15:48 | NUR ---
Occupational Therapy Impression Pt seated up in power w/c upon OT arrival, declined transfers. Agreeable to strengthening. Dynamic core stabilization ther ex seated with good tolerance. UB ther ex with green theraband. Plan to see pt in AM in order to assess functional transfers for engagement in ADLs. Occupational Therapy Goals 1) Pt will be Min A UB/LB dressing. 2) Pt will be Min A toilet task. Patient's Goal
--- NOTE | 2018-10-16 16:16 | NUR ---
Physical Therapy Impression Pt already up in chair and declines transfer for mobility eval at this time. PT/OT will coordinate for eval tomorrow at a more appropriate time for pt to assess current level of function. Physical Therapy Goals Patient's Goals
--- NOTE | 2018-10-16 17:52 | RADIOLOGY IMAGING REPORT ---
FACILITY: [facility] [place] PATIENT NAME: Ramu Carney : 1960 MR: [id number] V: [id number] EXAM DATE: ORDERING PHYSICIAN: CHRISTOPH POWER TECHNOLOGIST: Location: [facility] [place] Patient: Ramu Carney : 1960 Visit/Account:[id number] Date of Sevice: 10/16/2018 Exam type: PICC LINE INSERTION, US GUIDANCE VASCULAR ACCESS History: long-term IV abx Comparison: February 14, 2018. Findings: Informed consent was obtained. The patient's left arm was prepped and draped in usual sterile fashio n. Local anesthesia was accomplished with 1% lidocaine. Utilizing continuous sonographic guidance a nd fluoroscopic guidance a 34 cm long trimmed 4 Montenegrin single lumen power PICC was inserted via the p atent left brachial vein with the distal tip resting in the superior vena cava. The proximal portion PICC line was adhered the patient's arm the sterile dressing. The PICC line was flushed with 5 mL o f saline. The procedure was accomplished without apparent complication. The sonographic images were saved to PACS. The dose area product was 108.49 micro-Lou per meter squared. IMPRESSION: 1. Successful placement of a 34 cm long trimmed 4 Montenegrin single-lumen parapelvic inserted via the pa tent left brachial vein with the distal tip resting in superior vena cava Report Dictated By: Gracy Veras MD at 10/16/2018 5:44 PM Report E-Signed By: Gracy Veras MD at 10/16/2018 5:47 PM WSN:[email or web address]
--- NOTE | 2018-10-16 17:53 | RADIOLOGY IMAGING REPORT ---
FACILITY: [facility] PATIENT NAME: Ramu Carney : 1960 MR: [id number] V: [id number] EXAM DATE: ORDERING PHYSICIAN: CHRISTOPH POWER TECHNOLOGIST: Location: [facility] [place] Patient: Ramu Carney : 1960 Visit/Account:[id number] Date of Sevice: 10/16/2018 Exam type: PICC LINE INSERTION, US GUIDANCE VASCULAR ACCESS History: longterm IV abx Comparison: February 14, 2018. Findings: Informed consent was obtained. The patient's left arm was prepped and draped in usual sterile fashio n. Local anesthesia was accomplished with 1% lidocaine. Utilizing continuous sonographic guidance a nd fluoroscopic guidance a 34 cm long trimmed 4 Moldovan single lumen power PICC was inserted via the p atent left brachial vein with the distal tip resting in the superior vena cava. The proximal portion PICC line was adhered the patient's arm the sterile dressing. The PICC line was flushed with 5 mL o f saline. The procedure was accomplished without apparent complication. The sonographic images were saved to PACS. The dose area product was 108.49 micro-Lou per meter squared. IMPRESSION: 1. Successful placement of a 34 cm long trimmed 4 Moldovan single-lumen parapelvic inserted via the pa tent left brachial vein with the distal tip resting in superior vena cava Report Dictated By: Gracy Veras MD at 10/16/2018 5:44 PM Report E-Signed By: Gracy Veras MD at 10/16/2018 5:47 PM WSN:[email or web address]
[2018-10-16] MEDS: TAMSULOSIN HCL 0.4 MG CAP PO SCH (21:31)
[2018-10-16] MEDS: NAPROXEN 500 MG TAB PO PRN (21:37)
[2018-10-16 22:30] VITALS: BP 109/57
[2018-10-17 04:56] VITALS: BP 101/46
[2018-10-17 07:20] VITALS: BP 110/60
[2018-10-17 07:40] LABS: PLATELET COUNT, AUTOMATED 204 K/uL (150-450)
[2018-10-17] MEDS: VILAZODONE HCL 40 MG TAB PO SCH (08:15)
[2018-10-17] MEDS: CEFEPIME HCL 2 GM VIAL IVP SCH ×2 (08:16→20:05)
[2018-10-17] MEDS: NYSTATIN 100,000 U/GM PWD 15GM TP SCH ×2 (08:16→20:46)
[2018-10-17] MEDS: OXYBUTYNIN CHL XL 5 MG TABCR PO SCH ×2 (08:17→20:47)
[2018-10-17] MEDS: DOCUSATE SODIUM 100 MG CAP PO SCH ×2 (08:17→20:46)
[2018-10-17] MEDS: ENOXAPARIN 30 MG/0.3 ML SYR SC SCH (08:17)
--- NOTE | 2018-10-17 10:34 | NUR ---
Physical Therapy Impression PT/OT co-treat for pt safety and time split for billing purposes, as OT had already completed their eval visit. Pt was agreeable to utilize EZ lift device for transfer from bed to power W/C, noting that he feels weaker than he typically does at home and understands that this device would assist in safety while still allowing him to participate with weight bearing and strengthening for transfer. Pt did require 2 person Mod/Max assist to complete transfer and Max/Total assist of 2 for repositioning and scooting deeper into seat. Physical Therapy Goals Patient's Goals
[2018-10-17 11:00] VITALS: BP 110/51
--- NOTE | 2018-10-17 13:29 | Hospitalist Progress Note ---
Subjective Progress Notes Subjective 58M admitted for cellulitis. Continues to progress slowly. Unable to transfer to wheel chair due to pain and will need some rehab and continued wound care as well as IV antibiotics. Physical Exam Vital Signs Date Time Temp Pulse Resp B/P (MAP) Pulse Ox O2 Delivery O2 Flow Rate FiO2 10/17/18 11:00 98.0 80 16 110/51 (70) 94 Room Air 10/17/18 07:20 1.0 Intake and Output 10/17/18 07:00 Intake Total 1080 ml Output Total 1330 ml Balance -250 ml Intake Oral 1080 ml Output Urine Total 1330 ml # Voids 3 # Bowel Movements 2 General Appearance: Alert, No Acute Distress Cardiovascular: Normal Rhythm & Peripheral Pulses Respiratory: No Respiratory Distress GI: Soft and Non-Tender Extremities: Soft and Non Tender, Warm, Pulses, Perfused Integumentary: Other (improving erythema and edema RLE) Result Diagram: 10/17/18 0734 10/17/18 0734 Assessment and Plan Problems: (1) Cellulitis of right lower leg Status: Acute Assessment & Plan: He did present with erythema of the right lower leg. He was started on empiric treatment with Zosyn, but was then switched to Cefepime. He was also started on empiric vancomycin. The vancomycin was stopped 06.01, he was then placed on Cefdinir /, with worsening erythema. He was placed back on Cefepime /, with improvement in erythema. Will need to continue Cefepime for a total treatment of 14 days. (2) Sepsis Status: Resolved Assessment & Plan: He did have an elevated lactate level. He was given fluid resuscitation and his lactate is improved. (3) ARF (acute renal failure) Assessment & Plan: Improved with IV fluids. (4) Cerebral palsy Status: Chronic Assessment & Plan: He does have a baclofen pump, which has been continued. Swelling and pain are inhibiting his transfers, will need ongoing wound care and rehab before returning home. Exam Sepsis Risk: No Definite Risk Problem Qualifiers (1) Sepsis: Sepsis type: sepsis due to unspecified organism Qualified Codes: A41.9 - Sepsis, unspecified organism (2) Cerebral palsy: Cerebral palsy type: unspecified type Qualified Codes: G80.9 - Cerebral palsy, unspecified ARTHUR SAMUEL DO Oct 17, 2018 13:29
--- NOTE | 2018-10-17 14:24 | NUR ---
Occupational Therapy Impression Pt reports being below PLOF. Agreeable to trial transfer with EZ lift to determine the most safe transfer method for pt and staff as pt typically utilizes transfer pole at home. Mod Ax2 supine to sit with HOB raised. Mod-Max Ax2 sit<>stand transfer with EZ lift. Pt in power w/c at end of tx, declining further needs. Recommend further rehab prior to discharge home to ensure (I) and safe transfers. Occupational Therapy Goals 1) Pt will be Min A UB/LB dressing. 2) Pt will be Min A toilet task. Patient's Goal
[2018-10-17 14:28] VITALS: BP 112/65
--- NOTE | 2018-10-17 14:35 | NUR ---
ECF Referral - Discussed rehab philosophy with patient. This patient is known to us, discussion held regarding needing to have two people to transfer and move him in bed and he may have to wait for requests until two staff members can be there to assist, he verbalized understanding. PASSR positive, Papi Vargas notified to request LT101. Will plan for admission 10/18/18 if he remains medically stable.
--- NOTE | 2018-10-17 14:49 | NUR ---
LT101 requested. SW will continue to follow to complete categorical determination paperwork.
[2018-10-17 19:20] VITALS: BP 133/80
[2018-10-17] MEDS: TAMSULOSIN HCL 0.4 MG CAP PO SCH (20:46)
[2018-10-17] MEDS: RANITIDINE HCL 150 MG TAB PO PRN (20:49)
[2018-10-17] MEDS: NAPROXEN 500 MG TAB PO PRN (20:49)
[2018-10-17 23:35] VITALS: BP 125/61
[2018-10-18 07:28] VITALS: BP 102/38
[2018-10-18] MEDS: VILAZODONE HCL 40 MG TAB PO SCH (08:15)
[2018-10-18] MEDS: CEFEPIME HCL 2 GM VIAL IVP SCH (08:15)
[2018-10-18] MEDS: DOCUSATE SODIUM 100 MG CAP PO SCH (08:16)
[2018-10-18] MEDS: NYSTATIN 100,000 U/GM PWD 15GM TP SCH (08:16)
[2018-10-18] MEDS: OXYBUTYNIN CHL XL 5 MG TABCR PO SCH (08:16)
[2018-10-18] MEDS ORDERED: ENOXAPARIN 40 MG/0.4ML SYR SC SCH (09:00)
--- NOTE | 2018-10-18 12:42 | Transfer Summary (ECF/SWB) ---
Transfer Summary (ECF/SWB) Problems: (1) Cellulitis of right lower leg Status: Acute Assessment & Plan: He did present with erythema of the right lower leg. He was started on empiric treatment with IV Zosyn, but was then switched to Cefepime and vancomycin. The vancomycin was stopped 10/13/18 He was then placed on oral Cefdinir 10/14, but developed worsening erythema. He was placed back on IV Cefepime 10/15, with improvement in erythema/edema. Will need to continue the Cefepime for a total treatment of 14 days. He did have PICC line placed. Arrangements were made for transfer to [facility] to complete the course. (2) Sepsis Status: Resolved Assessment & Plan: He did have an elevated lactate level. He was given IV fluid resuscitation and his lactate returned to normal. (3) ARF (acute renal failure) Assessment & Plan: Due to acute infection and possible dehydration. Improved/resolved with IV fluids. (4) Cerebral palsy Status: Chronic Assessment & Plan: He does have a baclofen pump, which has been continued. Swelling and pain were inhibiting his transfers. He will need ongoing wound care and rehab before returning home. Latest Vital Signs Vital Signs Date Time Temp Pulse Resp B/P (MAP) Pulse Ox O2 Delivery O2 Flow Rate FiO2 10/18/18 09:04 Room Air 10/18/18 08:10 93 10/18/18 07:28 98.4 86 16 102/38 (59) Result Diagram: 10/17/18 0734 10/17/18 0734 Diagnostics PATIENT NAME: Ramu Carney : 1960 MR: [id number] V: [id number] EXAM DATE: [id number] ORDERING PHYSICIAN: DIAMANTE SCHMIDT TECHNOLOGIST: Location: [facility] - [place] Patient: Rmau Carney : 1960 Visit/Account:[id number] Date of Sevice: 10/11/2018 EXAMINATION: Right foot series, 3 views 10/11/2018 3:47 PM HISTORY: Evaluate for osteoarthritis. COMPARISON: The right-sided comparisons available. FINDINGS: Metallic and bony arthrodesis along the talocalcaneal and the calcaneocuboid joints. Spurring or buttressing along the talonavicular articulation. There is soft tissue swelling in the forefoot. No foreign body or localized soft tissue gas collection. No periosteal reaction or bony lytic change to indicate osteomyelitis. IMPRESSION: Soft tissue swelling. No radiographic features of osteomyelitis in the right foot. If clinically indicated, MR has higher sensitivity. Report Dictated By: Matty Strickland MD at 10/11/2018 4:28 PM Report E-Signed By: Matty Strickland MD at 10/11/2018 4:31 PM WSN:LONGCLCREAD Condition: Improved Time Spent: > 30 min Disposition: SNF/NH ([facility]) Treatment Goals and Plan Patient requires mcc and/or skilled rehabilitation with the goal to increase independence with ADL's, functional strength and mobility. Continue and adjust medication regimen. Services Required: PT, Wound Care, IV Medications Problem Qualifiers (1) Sepsis: Sepsis type: sepsis due to unspecified organism Qualified Codes: A41.9 - Sepsis, unspecified organism (2) Cerebral palsy: Cerebral palsy type: unspecified type Qualified Codes: G80.9 - Cerebral palsy, unspecified LENA CUETO MD Oct 18, 2018 12:42
== END 2018-10-18 10:00 | DRG 872 ==
LOC: ER 15:55 → MED 17:53
PROVIDERS: ADMIT Family Medicine; ATTEND Family Medicine
PROC: 02HV33Z Insertion of Infusion Device into Superior Vena Cava, Percutaneous Approach (ICD-10-PCS; principal; 2018-10-16)
PROC: B548ZZA Ultrasonography of Superior Vena Cava, Guidance (ICD-10-PCS; 2018-10-16)
DX: A41.9 Sepsis, unspecified organism (principal); N17.9 Acute kidney failure, unspecified; L03.115 Cellulitis of right lower limb; K21.9 Gastro-esophageal reflux disease without esophagitis; Z99.3 Dependence on wheelchair; G80.9 Cerebral palsy, unspecified; G43.909 Migraine, unspecified, not intractable, without status migrainosus; E78.00 Pure hypercholesterolemia, unspecified; N31.9 Neuromuscular dysfunction of bladder, unspecified; F32.9 Major depressive disorder, single episode, unspecified; Z97.8 Presence of other specified devices; Z91.040 Latex allergy status; Z88.5 Allergy status to narcotic agent; Z88.8 Allergy status to other drugs, medicaments and biological substances; Z86.73 Personal history of transient ischemic attack (TIA), and cerebral infarction without residual deficits; Z87.440 Personal history of urinary (tract) infections; Z90.49 Acquired absence of other specified parts of digestive tract
CPT/HCPCS: 36415; 36573; 80202; 81001; 82040; 82247; 82310; 82374; 82435; 82565; 82947; 83605; 84075; 84132; 84155; 84295; 84450; 84460; 84520; 85025; 85610; 85730; 87040; 96361; 96365; 96367; 96375; 97161; 97162; 97166; 99285; C1751; C1758; J0692; J1650; J2543; J3010; J3370; J7030; J7050

== ENCOUNTER 2018-10-18 10:00 | Inpatient (IN) | payer MEDICARE, OTHER ==
[2018-05-28 09:47] VITALS: Ht 177.8 cm; Wt 89.8 kg
[~2018-10-18] VITALS: Ht 177.8 cm; Wt 89.8 kg
[~2018-10-18 10:00] MED LIST changes: +DIPH-618 PO; +NAPR220C12 PO
[2018-10-18 10:15] VITALS: BP 100/63
[2018-10-18] MEDS ORDERED: CEFEPIME HCL 2 GM VIAL IVP SCH (10:24)
[2018-10-18] MEDS ORDERED: NAPROXEN 500 MG TAB PO PRN (10:24)
--- NOTE | 2018-10-18 11:08 | Consultant Pharmacy Review ---
Contracting Manager Review Medication Review Do All Mecications have a Diag: Yes Other General Cautions Reuptake Inhibitors / Nonsteroidal Anti-Inflammatory Agents (Nonselective) Risk Rating D: Consider therapy modification Summary Selective Serotonin Reuptake Inhibitors may enhance the antiplatelet effect of Nonsteroidal Anti-Inflammatory Agents (Nonselective). Nonsteroidal Anti-Inflammatory Agents (Nonselective) may diminish the therapeutic effect of Selective Serotonin Reuptake Inhibitors. Severity Major Reliability Rating Good Patient Management Consider alternatives to non-steroidal anti-inflammatory drugs (NSAIDs) in patients receiving selective serotonin reuptake inhibitors (SSRIs). Use of a gastroprotective agent such misoprostol or a proton pump inhibitor may decrease gastrointestinal bleeding risk but is not expected to affect intracranial bleeding risk. It is unclear whether NSAIDs that are more selective for ALVAREZ-2 reduce bleeding risk in SSRI-treated patients. Monitor patients receiving these combinations for evidence of bleeding and diminished antidepressant effects. Selective Serotonin Reuptake Inhibitors Interacting Members Citalopram; Dapoxetine; Escitalopram; FLUoxetine; FluvoxaMINE; PARoxetine; Sertraline; Vilazodone; Vortioxetine Nonsteroidal Anti-Inflammatory Agents (Nonselective) Interacting Members Aceclofenac; Acemetacin; Dexibuprofen; Dexketoprofen; Diclofenac (Systemic); Diflunisal; Dipyrone; Etodolac; Etofenamate; Fenoprofen; Floctafenine; Flurbiprofen (Systemic); Ibuprofen; Indomethacin; Ketoprofen; Ketorolac (Nasal); Ketorolac (Systemic); Lornoxicam; Loxoprofen; Meclofenamate; Mefenamic Acid; Meloxicam; Nabumetone; Naproxen; Oxaprozin; Pelubiprofen; Phenylbutazone; Piroxicam (Systemic); Propyphenazone; Sulindac; Tenoxicam; Tiaprofenic Acid; Tolfenamic Acid; Tolmetin; Zaltoprofen Exceptions Diclofenac (Topical); Ibuprofen (Topical); Piroxicam (Topical) Discussion Numerous case-control and cohort analyses have found an increase in gastrointestinal1,2,3,4,5,6,7,8,9,10 and [id number],12 bleeding when SSRIs and NSAIDs are combined. [place]-analyses have estimated that the odds of gastrointestinal bleeding increase by 1.7- to 2.4-fold with SSRI use alone, 2.6- to 3.2-fold with NSAID use alone, and 4.0- to 6.3-fold with combined use. 13,14,15 Most analyses of gastrointestinal bleeding have been limited to patients with serious bleeding as a primary cause for hospitalization and/or in association with events such as ulcer perforation or need for blood transfusion. 1,2,3,4,5,6,8,9,10 Although data published to date clearly support an association between combined SSRI and NSAID use and bleeding, they have important limitations. All analyses are retrospective, many utilize a case-control design, and some do not report bleeding across all exposure groups (SSRIs alone, NSAIDs alone, SSRIs with NSAIDs, and controls). Many have a sample size too small to support modeling of potential confounding or risk-modifying variables, or to effectively explore differences among agents and doses. In the analyses of intracranial hemorrhage, there are both few reports and few cases in the reports. The increase in bleeding described when these agents are combined likely results from a combination of NSAID-mediated reductions of gastroprotective prostaglandins and antiplatelet effects of both NSAIDs and SSRIs. This dual mechanism may particularly elevate gastrointestinal risk.16,17 Some analyses have suggested a potential greater bleeding risk with higher potency SSRIs (paroxetine, sertraline, fluoxetine), compared with other SSRIs, although no impact on the potential interaction with NSAIDs been found.4,5,18 Similarly, although use of more [id number]-6-[id number] NSAIDs may reduce bleeding risk, the few reports comparing these with less selective NSAIDs have either had an inadequate sample of patients treated with the more selective agents 3,4 or have found no impact on the potential interaction with NSAIDs.2 Current [place] practice guidelines do not address SSRI use among major bleeding risk factors in NSAID-treated patients.19,20 A post-hoc analysis of a large clinical trial of antidepressant treatment found decreased rates of depression remission among subjects who reported any NSAID use compared with those who reported no NSAID use (45% vs. 55%).21 The authors of the report present 2 potential interaction mechanisms that could lead to this, based on animal studies: NSAIDs may blunt SSRI response via actions on cytokines and other regulatory proteins; and NSAIDs may reduce SSRI exposure based on the impact of ibuprofen on citalopram exposure in mice.21 Conversely, several clinical studies examining the impact of adjuvant celecoxib on major depressive disorder and obsessive compulsive disorder in SSRI-treated patients consistently found improved responses with the combination.22,23,24,25,26 Footnotes 1. Tacos ALVARADO, Damian Jeff, Eliel Vidal, et al. Use of selective serotonin reuptake inhibitors and risk of upper gastrointestinal tract bleeding: a population-based cohort study. Arch Emblem Drawer In Med. 2003;163:59-64. [PubMed [id number]] 2. Sima LJ, Jese PJ, Stoney RB, et al. Does concurrent prescription of selective serotonin reuptake inhibitors and non-steroidal anti-inflammatory drugs substantially increase the risk of upper gastrointestinal bleeding? Aliment Pharmacol Ther. 2005;22:175-181. [PubMed [id number]] 3. Mary A, Good T, Nannette PUENTE, et al. Risk of serious upper gastrointestinal events with concurrent use of NSAIDs and SSRIs: a case-control study in the general population. Eur J Clin Pharmacol. 2007;63(4):403-408. [PubMed [id number]] 4. Anna S, Thania M, Isaac L, et al. Increased use of selective serotonin reuptake inhibitors in patients admitted with gastrointestinal haemorrhage: a multicentre retrospective analysis. Aliment Pharmacol Ther. 2006;23:937-944. [PubMed [id number]] Pneumococcal Vaccine HX Pneumo Vac ([id number]): No HX Pneumo Vac (Pneumovax): No Comments Regarding the Review Patient may receive the Prevnar 13 vaccine if he desires. CRYSTAL BURCIAGA Oct 18, 2018 11:08
--- NOTE | 2018-10-18 12:45 | ECF H&P BLANK ---
[facility] H&P UPDATE History of Present Illness Chief Complaint Leg redness History of Present Illness This patient presented to the emergency room complaining of redness to the right lower leg. He noticed some redness over the last week, but has really progressed over the last 24hrs. He has also noted fever and chills. History Problems: (1) Cerebral palsy Status: Chronic (2) Neurogenic bladder Status: Chronic (3) Depression Status: Chronic (4) BPH (benign prostatic hypertrophy) Status: Chronic (5) GERD (gastroesophageal reflux disease) Status: Chronic Home Meds Active Scripts Penicillin V Potassium 500 Mg Tab (PENICILLIN V POTASSIUM 500 MG TAB) 500 Mg Tablet, 500 MG PO QID, #36 TAB Prov:KAUR DESHPANDE MD 06/02/18 Reported Medications Docusate Sodium (COLACE) 100 Mg Capsule, 100 MG PO BID, #30 CAPSULE 10/05/17 Modafinil (MODAFINIL) 100 Mg Tablet, 150 MG PO PRN 09/22/17 Calcium Carbonate (CALCIUM) 500 Mg Tablet, 2000 MG PO QDAY 06/12/16 Multivitamin (MULTI VITAMIN DAILY) 1 Each Tablet, 1 EACH PO QDAY 06/12/16 Oxybutynin Chloride (OXYBUTYNIN CHLORIDE ER) 10 Mg Tab.er.24, 10 MG PO BID, TAB.SR 06/12/16 Tamsulosin Hcl (FLOMAX) 0.4 Mg Cap.er.24h, 0.4 MG PO DAILY 02/23/15 Baclofen (LIORESAL INTRATHECAL) 50 Mcg/1 Ml Ampul, 165 MCG IT DAILY Continuous Infusion via inserted pump 02/23/15 Vilazodone Hydrochloride (VIIBRYD) 40 Mg Tablet, 40 MG PO QDAY 02/21/12 Al Hydrox/Mg Trisilicate (Gaviscon) 1 Ea Chew, 4 EA PO QHS 02/21/12 Acetaminophen/Diphenhydramine (TYLENOL PM (OR EQUIV) 500/25 MG (PATIENT OWN) 1 Each Tablet, 1 TAB PO QHS PRN 325/25 02/20/12 Ranitidine Hcl (Zantac) 150 Mg Tab, 150 MG PO 1-2XD, 0 Refills 01/26/10 Allergies: Coded Allergies: latex (Verified Allergy, Severe, 10/11/18) sertraline (Verified Allergy, Severe, RASH, 10/11/18) codeine (Verified Adverse Reaction, Intermediate, NAUSEA/VOMITING, 10/11/18) Patient History: FH: thyroid cancer FATHER, , Age:83 Hx Smoking: No Exposure to Second Hand Smoke?: No Caffeine Intake: Soda Caffeine/Cups Per Day: 1-2 A DAY Hx Alcohol Use: No Hx Substance Use Disorder: No Social Drug Use: Never Review of Systems All Systems Reviewed/Normal: Yes, Except as Noted Constitutional: Fever, Chills Exam Vital Signs Vital Signs Date Time Temp Pulse Resp B/P (MAP) Pulse Ox O2 Delivery O2 Flow Rate FiO2 10/11/18 19:19 98.7 16 81/53 (62) 92 Room Air 10/11/18 18:00 77 Neuro: No Gross deficits Eyes: PERRLA Cardiovascular: Regular Rate and Rhythm Respiratory: Clear to Auscultation GI: Abd Soft and Non-Tender Extremities: Other (Erythema right lower leg with ink line drawn.) Medical Decision Making Data Points Result Diagram: 10/11/18 1557 10/11/187 Assessment and Plan Problems: (1) Cellulitis of right lower leg Status: Acute Assessment & Plan: He did present with erythema of the right lower leg. He has been started on empiric treatment with Zosyn. He received a loading dose of vancomycin in the emergency department. A trough level has been ordered for 24hrs in case this needs to be continued. (2) Sepsis Status: Resolved Assessment & Plan: He does have an elevated lactate level. He has been started on fluid resuscitation and a lactate series has been ordered. (3) ARF (acute renal failure) Assessment & Plan: He has been started on IV fluids and a repeat chemistry is ordered for the morning. (4) Cerebral palsy Status: Chronic Assessment & Plan: He does have a baclofen pump, which has been continued. Copies to: SHANNEN MILLIGAN MD ; Venous Thromboembolism Antithrombotics Is Pt On Any Antithrombotics?: No Exam Sepsis Risk: No Definite Risk Problem Qualifiers (1) Sepsis: Sepsis type: sepsis due to unspecified organism Qualified Codes: A41.9 - Sepsis, unspecified organism (2) Cerebral palsy: Cerebral palsy type: unspecified type Qualified Codes: G80.9 - Cerebral palsy, unspecified SHANNEN CAI DO October 11, 2018 19:47 <Electronically signed by SHANNEN CAI DO> D/ 46 46 46 IGNACIO/KELSIE CC: SHANNEN MILLIGAN MD Mr. Carney will [facility] for ongoing PT, wound care, IV antibiotics. LENA CUETO MD Oct 18, 2018 12:45
--- NOTE | 2018-10-18 14:40 | NUR ---
Physical Therapy Impression PT subjective eval completed with discussion regarding home environment and goal setting. Pt is currently up in his W/C and is not yet ready to transfer to bed. Physical Therapy Goals 1. Pt to complete squat-pivot transfer bed to/from power W/C with use of afo's and shoes for safety, once edema reduces in R) LE such that skin integrity can be protected. 2. Pt to be Min assist for supine to sit and CGA for sit to supine 3. Pt to demo trunk strength, such that he can safely propel W/C around furniture and equipment without self injury. Patient's Goals
--- NOTE | 2018-10-18 16:25 | OT ECF NOTE ---
Type of Note: Initial Note Primary Medical Diagnosis: Generalized weakness s/p recent hospital admission for cellulitis (right lower extremity) and sepsis (resolved) Occupational Therapy Evaluation Date: 10/18/18 SUBJECTIVE: Prior Hospitalization: [facility] 10/11/18 thru 10/18/18 Prior Level of Function: Patient has private caregiver assist 7x/week, 1x/day for ADLs. He completes stand pivot transfers 3x/day with a transfer pole (out of bed, to toilet, and back to bed) He has assist for bathing and to get out of bed in the morning and dressed for the day. He spends the majority of his day utilizing a power wheelchair and then transfers back to bed at night. Prior Living Status: Single level house Spouse Assist by family Community Services: Support adequate-private caregiver assist with ADLs every morning to get up and ready for day No known needs Home Accessibility: Ramp All needs on one level Walk-in shower Equipment Owned: Tub/shower chair Wheelchair Medical Complications/Past Medical History: Cerebral palsy, please see reports for further details Psychosocial Support: Supportive spouse Pain Scale (0-10): None reported at time of evaluation Hand Dominance: Right OBJECTIVE: Strength: MMT: Right Left Shoulder Flexion WFL N/T Elbow Flexion WFL N/T Wrist Extension WFL N/T Assurance Manager WFL N/T (5= normal, 4= good, 3= fair, 2= poor, 1= trace) ROM: Left, Severely limited Sensation: No paraesthesia reported Functional Transfer: Assistive Device: Gait belt, EZ lift Transfer Ability: 2-person assist, Maximum assistance ADL: Upper body dressing: Assistive device: Upper body dressing ability: N/T Lower body dressing: Assistive device: Lower body dressing ability: Total assistance Toileting: Assistive device: Toileting ability: N/T Grooming/hygiene: Assistive device: Grooming ability: N/T Bathing: Assistive device: Bathing ability: N/T Standardized Assessment: Roxana Index of Activities of Daily Livin/10 upon initial evaluation. ASSESSMENT: Ramu presents to [facility] requiring 2 person assist for functional transfers and ADLs. Currently, he is limited by decreased strength and increased swelling in right lower extremity preventing donning of right AFO for safe functional transfers. He will benefit from skilled OT services to improve strength and optimize independence for engagement in ADLs. Problem List/Current Limitations: Pain Decreased activity tolerance Decreased strength Generalized weakness Abnormal tonal influence Poor trunk/head control Short Term Goals: 1) Patient will complete lower body dressing with moderate assistance. 2) Patient will complete toileting with minimum assistance. 3) Pt will be independent UB ther ex HEP. 4) Patient will complete chair to bed, bed to chair transfer with minimum assistance 5) Patient will increase Roxana Index by 2 points.. Basket Mender Goals: Return home with home health services Patient Goals: Return home Rehabilitation Prognosis: Fair Barriers to Discharge: Medical history PLAN: The patient will benefit from skilled occupational therapy services 5 times per week for 2 weeks including: Ther ex ADL training Safety training Ther act IADL training Transfer training Adaptive equip training Bed mobility Energy conservation Thank you for this referral. If you have any questions, concerns, or comments about this report or plan, please contact me at . Adriana Montoya MS, OTR/L Occupational Therapist ANGELINE
[2018-10-18 16:30] VITALS: BP 106/58
[2018-10-18] MEDS ORDERED: NS(*) 0.9% 500 ML BAG 500 ML IV PRN (19:20)
[2018-10-18] MEDS: OXYBUTYNIN CHL XL 5 MG TABCR PO SCH (20:17)
[2018-10-18] MEDS: TAMSULOSIN HCL 0.4 MG CAP PO SCH (20:17)
[2018-10-18] MEDS: DOCUSATE SODIUM 100 MG CAP PO SCH (20:17)
[2018-10-18] MEDS: CEFEPIME HCL 2 GM VIAL IVP SCH (20:17)
[2018-10-18] MEDS: NYSTATIN 100,000 U/GM PWD 15GM TP SCH (20:24)
[2018-10-19 07:18] VITALS: BP 96/58
[2018-10-19] MEDS: CEFEPIME HCL 2 GM VIAL IVP SCH ×2 (07:52→20:21)
[2018-10-19] MEDS: NYSTATIN 100,000 U/GM PWD 15GM TP SCH ×2 (07:52→20:20)
--- NOTE | 2018-10-19 08:04 | Antimicrobial Stewardship ---
Antimicrobial Time Out Antimicrobial Stewardship MD Service: Hospitalist Indications: Cellulitis Antimicrobial Used currently on cefepime 2g q12h for a 14 day course Start Date: Oct 17, 2018 Culture Results: N/A Eligible for PO Conversion Eligable for PO Conversion: No Reviewed with Provider Reviewed w/ Provider on Rounds: No Comments Comments Patient transferred to ECF for duration of abx treatment for cellulitis (cefepime 2g Q12 hrs for 14 days). Abx therapy will continue thru 10/30/18. HENRI MARCELINO Oct 19, 2018 08:04
[2018-10-19] MEDS: [UNRECOGNIZED DRUG - OTHER] INTRATHEC SCH (09:00)
[2018-10-19] MEDS: BACLOFEN INTRATHEC SCH (09:00)
[2018-10-19] MEDS: MULTIVITAMINS TAB PO SCH (09:36)
[2018-10-19] MEDS: ENOXAPARIN 40 MG/0.4ML SYR SC SCH (09:36)
[2018-10-19] MEDS: DOCUSATE SODIUM 100 MG CAP PO SCH ×2 (09:36→20:20)
[2018-10-19] MEDS: VILAZODONE HCL 40 MG TAB PO SCH (09:37)
[2018-10-19] MEDS: OXYBUTYNIN CHL XL 5 MG TABCR PO SCH ×2 (10:57→20:20)
--- NOTE | 2018-10-19 11:48 | NUR ---
Occupational Therapy Impression Agreeable to core strengthening to improve tolerance for IADLs (reaching into kitchen cupboards). CGA to maintain upright posture crossing midline and reaching high/low. Decreased tone noted today. UB HEP with blue theraband. Continue POC. Occupational Therapy Goals 1) Patient will complete lower body dressing with moderate assistance. 2) Patient will complete toileting with minimum assistance. 3) Pt will be independent UB ther ex HEP. 4) Patient will complete chair to bed, bed to chair transfer with minimum assistance 5) Patient will increase Roxana Index by 2 points. Patient's Goal
--- NOTE | 2018-10-19 13:06 | Medical Nutrition Therapy ---
Nutrition Anthropometrics Height (Inches): 70.00 Height (Calculated Centimeters: 177.120297 Weight (Pounds): 198 (from med unit) Jerad Nutrition Score: Probably Inadequate Jerad Nutrition Risk Score: 14 Dietary Referral Nutrition Risk Factors: Nutrition Risk Comment: Nutritional Diagnosis Nutritional Risk Acuity 1: Acute/ES Renal Nutritional Risk Acuity 3: GERD Nutritional Risk Acuity 4: Good Appetite Past Medical History: CP, GERD, depression, ADEOLA Nutrition Diagnosis: Decreased Nutrient Needs Nutrition Etiology: Psychological Issues Nutrition Problem/Etiology/Sym: Decreassed protein needs r/t dx ARF with BUN 22. Energy Requirement: 2700 (30 kcal/kg) Protein Requirement: 72 (.8gm/kg) Fluid Requirement: 2700 (30ml/kg) Nutrition Monitoring & Eval Nutrition Goals: Eat 75-100% Meal, Drink > 2 liters/day RD Patient Assessment Time: [address] Assessment Type: RD Assessment Patient Nutrition Acuity: 1-High Follow Up Date: Oct 23, 2018 Nutritional Comment: 6/7 Pt admitted with cellulitis. Pt had 4+ edmea RLE, 2+ edema rt foot, nonpitting edema LLE. No curretn wt. Pt weighed 198# on med unit. Anticipate wt loss when edema resolved. Alb 2.6, BUN 22, Creatinne 1, CPR 16.7. Pt on regular diet and eating 100%. Will cont to monitor and encourage intake. OSMAN SO Oct 19, 2018 13:06
--- NOTE | 2018-10-19 16:00 | NUR ---
Physical Therapy Impression -PT wound eval R) lateral foot: Non-excisional debridement with the use of tweezers to a depth of dermis in order to remove adhered non-viable tissue and small amount of slough. Disrupted blister areas cleansed with sterile saline and covered with silver collagen matrix product and then protected with foam pad before application of coban 2 stage compression wrap to address edema reduction. R) anterior yousif: skin intact, blisters reabsorbed and bruised yousif protected with foam pad prior to application of retrograde coflex 2 stage compression wrap to address edema. Physical Therapy Goals 1. Pt to complete squat-pivot transfer bed to/from power W/C with use of afo's and shoes for safety, once edema reduces in R) LE such that skin integrity can be protected. 2. Pt to be Min assist for supine to sit and CGA for sit to supine 3. Pt to demo trunk strength, such that he can safely propel W/C around furniture and equipment without self injury. Patient's Goals
[2018-10-19 16:46] VITALS: BP 106/63
[2018-10-19] MEDS: TAMSULOSIN HCL 0.4 MG CAP PO SCH (20:20)
[2018-10-20 07:23] VITALS: BP 113/72
[2018-10-20] MEDS: NYSTATIN 100,000 U/GM PWD 15GM TP SCH ×2 (07:57→20:18)
[2018-10-20] MEDS: CEFEPIME HCL 2 GM VIAL IVP SCH ×2 (07:58→20:17)
[2018-10-20] MEDS: VILAZODONE HCL 40 MG TAB PO SCH (08:47)
[2018-10-20] MEDS: MULTIVITAMINS TAB PO SCH (08:48)
[2018-10-20] MEDS: OXYBUTYNIN CHL XL 5 MG TABCR PO SCH ×2 (08:48→20:17)
[2018-10-20] MEDS: ENOXAPARIN 40 MG/0.4ML SYR SC SCH (08:48)
[2018-10-20] MEDS: DOCUSATE SODIUM 100 MG CAP PO SCH ×2 (08:48→20:17)
[2018-10-20] MEDS: BACLOFEN INTRATHEC SCH (09:00)
[2018-10-20] MEDS: [UNRECOGNIZED DRUG - OTHER] INTRATHEC SCH (09:00)
[2018-10-20 15:43] VITALS: BP 96/59
[2018-10-20] MEDS: TAMSULOSIN HCL 0.4 MG CAP PO SCH (20:17)
[2018-10-20] MEDS: RANITIDINE HCL 150 MG TAB PO PRN (20:22)
[2018-10-21 07:30] VITALS: BP 94/58
[2018-10-21] MEDS: CEFEPIME HCL 2 GM VIAL IVP SCH ×2 (08:05→20:24)
[2018-10-21] MEDS: ENOXAPARIN 40 MG/0.4ML SYR SC SCH (08:50)
[2018-10-21] MEDS: MULTIVITAMINS TAB PO SCH (08:51)
[2018-10-21] MEDS: DOCUSATE SODIUM 100 MG CAP PO SCH ×2 (08:51→20:24)
[2018-10-21] MEDS: OXYBUTYNIN CHL XL 5 MG TABCR PO SCH ×2 (08:51→20:24)
[2018-10-21] MEDS: VILAZODONE HCL 40 MG TAB PO SCH (08:51)
[2018-10-21] MEDS: [UNRECOGNIZED DRUG - OTHER] INTRATHEC SCH (08:52)
[2018-10-21] MEDS: BACLOFEN INTRATHEC SCH (08:52)
[2018-10-21] MEDS: NYSTATIN 100,000 U/GM PWD 15GM TP SCH ×2 (08:52→20:24)
[2018-10-21 15:00] VITALS: BP 104/64
[2018-10-21] MEDS: TAMSULOSIN HCL 0.4 MG CAP PO SCH (20:24)
[2018-10-21] MEDS: RANITIDINE HCL 150 MG TAB PO PRN (20:24)
[2018-10-22] MEDS: CEFEPIME HCL 2 GM VIAL IVP SCH ×2 (08:15→20:27)
[2018-10-22] MEDS: ENOXAPARIN 40 MG/0.4ML SYR SC SCH (08:20)
[2018-10-22] MEDS: OXYBUTYNIN CHL XL 5 MG TABCR PO SCH ×2 (08:22→20:27)
[2018-10-22] MEDS: [UNRECOGNIZED DRUG - OTHER] INTRATHEC SCH (08:22)
[2018-10-22] MEDS: DOCUSATE SODIUM 100 MG CAP PO SCH ×2 (08:22→20:27)
[2018-10-22] MEDS: BACLOFEN INTRATHEC SCH (08:22)
[2018-10-22] MEDS: NYSTATIN 100,000 U/GM PWD 15GM TP SCH ×2 (08:23→21:00)
[2018-10-22] MEDS: MULTIVITAMINS TAB PO SCH (08:23)
[2018-10-22] MEDS: VILAZODONE HCL 40 MG TAB PO SCH (08:26)
[2018-10-22 11:01] VITALS: BP 96/55
--- NOTE | 2018-10-22 12:14 | Medical Nutrition Therapy ---
Nutrition Anthropometrics Height (Inches): 70.00 Height (Calculated Centimeters: 177.871544 Weight (Pounds): 198 Weight (Calculated Kilograms): 89.811 Jerad Nutrition Score: Probably Inadequate Jerad Nutrition Risk Score: 13 Dietary Referral Nutrition Risk Factors: Nutrition Risk Comment: Nutritional Diagnosis Nutritional Risk Acuity 3: GERD Nutritional Risk Acuity 4: Good Appetite Past Medical History: CP, GERD, depression, ADEOLA Nutritional Acuity: 3-Mild Nutrition Diagnosis: Decreased Nutrient Needs Nutrition Etiology: Psychological Issues Nutrition Problem/Etiology/Sym: Decreassed protein needs r/t dx ARF with BUN 22. Energy Requirement: 2700 (30 kcal/kg) Protein Requirement: 72 (.8gm/kg) Fluid Requirement: 2700 (30ml/kg) Diet Type: Diet as Tolerated PIPPA/REG Nutrition Intervention: Cont diet as ordered, Encourage intake, HS snack Nutrition Monitoring & Eval Nutrition Goals: Eat 75-100% Meal, Drink > 2 liters/day Nutrition Follow-Up: Good Intake RD Patient Assessment Time: [address] Assessment Type: RD Re-Assessment Patient Nutrition Acuity: 3-Mild Follow Up Date: Oct 30, 2018 Nutritional Comment: 6/7 Pt admitted with cellulitis. Pt had 4+ edmea RLE, 2+ edema rt foot, nonpitting edema LLE. No current wt. Pt weighed 198# on med unit. Anticipate wt loss when edema resolved. Alb 2.6, BUN 22, Creatinine 1, CPR 16.7. Pt on regular diet and eating 100%. Will cont to monitor and encourage intake. DEV 10/22 Pt cont on PIPPA, intak average 87%. No new wt however edema has declined slightly to 3+ RLE and non pittng LLE. No new labs. Will cont to monitor and enourage intake Anticipate wt loss with decreasing edema. OSMAN SO Oct 22, 2018 12:14
--- NOTE | 2018-10-22 12:44 | NUR ---
Occupational Therapy Impression Min Ax1 supine to sit. CGA to maintain unsupported upright posture seated EOB with use of bed rail for support with R) UE x4 minutes. Min Ax1-2 sit<>stand with EZ lift. Mod Ax1 UB/LB dressing. Pt seated up in power w/c at end of tx. Pt demonstrating improved strength and tolerance for functional transfers this tx. Occupational Therapy Goals 1) Patient will complete lower body dressing with moderate assistance. 2) Patient will complete toileting with minimum assistance. 3) Pt will be independent UB ther ex HEP. 4) Patient will complete chair to bed, bed to chair transfer with minimum assistance 5) Patient will increase Roxana Index by 2 points. Patient's Goal
--- NOTE | 2018-10-22 12:53 | PT ECF NOTE ---
Type of Note: Initial Note Primary Medical Diagnosis: Generalized weakness s/p recent hospital admission for cellulitis (right lower extremity) and sepsis (resolved) Physical Therapy Evaluation Date: 10/18/18 SUBJECTIVE: Prior Hospitalization: [facility] 10/11/18 thru 10/18/18 Prior Level of Function: Patient has private caregiver assist 7x/week, 1x/day for ADLs. He completes stand pivot transfers 3x/day with a transfer pole (out of bed, to toilet, and back to bed) He has assist for bathing and to get out of bed in the morning and dressed for the day. He spends the majority of his day utilizing a power wheelchair and then transfers back to bed at night. Prior Living Status: Single level house Spouse Assist by family Community Services: Support adequate-private caregiver assist with ADLs every morning to get up and ready for day No known needs Home Accessibility: Ramp All needs on one level Walk-in shower Equipment Owned: Tub/shower chair Wheelchair Medical Complications/Past Medical History: Cerebral palsy, please see reports for further details Psychosocial Support: Supportive spouse Pain Scale (0-10): None reported at time of evaluation Hand Dominance: Right OBJECTIVE: Strength: Formal MMT not completed; pt has cerebral palsy with increased tone throughout and LE's more affected than UE's. Pt notes that LE strength is decreased overall as compared to his baseline, where he can usually transfer with use of a pivot pole to access his power W/C with only one person assist. ROM: (please note any abnormalities) decreased knee extension related to increased tone and contractures. Pt encouraged to elevated lower legs on pillows to float heels and decrease risk of pressure injury. Sensation: (please note any abnormalities) some paresthesias related to CP, however, not limiting to functional mobility. Other Neuro findings: CP Bed Mobility: Mod/Max assist for supine to/from sit transfers and trunk support for sitting at EOB. Assistive device: Head of bed raised; bed rail and gait belt Transfers: 2 person Mod/Max assist for sit to/from stand into EZ lift device. Assistive Device: Pt assisted lift Gait: Non-ambulatory; pt utilizes power W/C for repositioning with tilt in space mechanism and for mobility Assistive device: Stairs: N/A Assistive device: Timed Up and Go (>12 seconds indicated increased risk for falls): n/a 10 meter walk test (0.6m/second cannot function independently): n/a Other Objective Measures: n/a ASSESSMENT: Ramu presents to [facility] requiring 2 person assist for functional transfers and ADLs. Currently, he is limited by decreased strength and increased swelling in right lower extremity preventing donning of right AFO for safe functional transfers. Pt will benefit from PT to address wound care and compression wraps to R) LE to aide in donning of AFO and shoes for safer squat- pivot transfers once edema is more manageable, as well and strengthening and balance to allow for return to proper safety with ADL's in the home environment with one private caregiver. Problem List/Current Limitations: Decreased strength for functional mobility, increased edema in R) LE preventing application of AFO and shoe for mobility. Short Term Goals: 1. Pt to complete squat-pivot transfer bed to/from power W/C with use of afo's and shoes for safety, once edema reduces in R) LE such that skin integrity can be protected. 2. Pt to be Min assist for supine to sit and CGA for sit to supine 3. Pt to demo trunk strength, such that he can safely propel W/C around furniture and equipment without self injury. Snf Goals: Pt to return home with appropriate assistance from private caregivers and [facility] agency. Patient Goals: To return home Rehabilitation Prognosis: Good to goals set Barriers for Discharge: Pt's ability to don AFO PLAN: The patient will benefit from skilled physical therapy services 5 times per week for 2 weeks including: Ther ex, ther activity, transfer trng, edema reduction strategies, Wound care, neuro re-ed, and strengthening. Thank you for this referral. If you have any questions, concerns, or comments about this report or plan, please contact me at . H. Winter Kimball, PT, MPT, OMS MTDD
--- NOTE | 2018-10-22 16:08 | NUR ---
Physical Therapy Impression Pt demos excellent improvement in strength with UE support on upper rail of bed, as well as PT in place of pivot pole for leverage. Pt able to indep move foot rests out of the way but encouraged to utilize a life science technician to minimize exertion related to bending over, which limits his breathing. Pt with Min assist for LE's in/out of bed, but demos capability to complete this on his own. Pt is eager to transition back home and discussed care progression regarding compression to R) LE, application of AFO and shoes for transfers and length of time antibiotics will be required. Pt will discuss this with nursing in care conference tomorrow and will continue to progress with strength and safety during therapy visits to address return to baseline for transfers. Physical Therapy Goals 1. Pt to complete squat-pivot transfer bed to/from power W/C with use of afo's and shoes for safety, once edema reduces in R) LE such that skin integrity can be protected. 2. Pt to be Min assist for supine to sit and CGA for sit to supine 3. Pt to demo trunk strength, such that he can safely propel W/C around furniture and equipment without self injury. Patient's Goals
[2018-10-22 16:40] VITALS: BP 114/66
[2018-10-22] MEDS: TAMSULOSIN HCL 0.4 MG CAP PO SCH (20:27)
[2018-10-22] MEDS: RANITIDINE HCL 150 MG TAB PO PRN (20:31)
[2018-10-23 07:22] VITALS: BP 108/73
[2018-10-23] MEDS: NYSTATIN 100,000 U/GM PWD 15GM TP SCH ×2 (08:22→20:19)
[2018-10-23] MEDS: CEFEPIME HCL 2 GM VIAL IVP SCH ×2 (08:22→20:19)
[2018-10-23] MEDS: BACLOFEN INTRATHEC SCH (08:22)
[2018-10-23] MEDS: [UNRECOGNIZED DRUG - OTHER] INTRATHEC SCH (08:22)
[2018-10-23] MEDS: MULTIVITAMINS TAB PO SCH (08:23)
[2018-10-23] MEDS: ENOXAPARIN 40 MG/0.4ML SYR SC SCH (08:23)
[2018-10-23] MEDS: DOCUSATE SODIUM 100 MG CAP PO SCH ×2 (08:23→20:19)
[2018-10-23] MEDS: OXYBUTYNIN CHL XL 5 MG TABCR PO SCH ×2 (08:23→20:19)
[2018-10-23] MEDS: VILAZODONE HCL 40 MG TAB PO SCH (08:23)
--- NOTE | 2018-10-23 10:56 | NUR ---
5-day MDS completed with pt. C: 13, D: 02, E: no concerns, Q: plans to DC to community, referrals made for [facility] through [facility]. Will continue to follow for DC plans.
--- NOTE | 2018-10-23 13:41 | NUR ---
Physical Therapy Impression Pt demonstrated improved strength and transfer ability. Pt able to perform a squat pivot xfer with only CGAx1. Lucy provided for sit to supine to lift legs into bed. SBA and use of bed rail provided for all other bed mobility. Pt also demonstrated ability to safely drive wheelchair and negotiate obstacles. Pt drove self to care conference meeting with no difficulties. Pt would benefit from further skilled PT care to further improve strength and ensure safe transfer ability. Pt left at [facility] care conference meeting with all needs met. Physical Therapy Goals 1. Pt to complete squat-pivot transfer bed to/from power W/C with use of afo's and shoes for safety, once edema reduces in R) LE such that skin integrity can be protected. 2. Pt to be Min assist for supine to sit and CGA for sit to supine 3. Pt to demo trunk strength, such that he can safely propel W/C around furniture and equipment without self injury. Patient's Goals
--- NOTE | 2018-10-23 13:41 | NUR ---
This Physical Therapist or Management Analyst was present for the entire physical therapy session directing the services, making the skilled judgement, and was not engaged in treating another patient or doing another task at the same time as the treatment session. Addendum: 10/23/18 at 1419 by SIRI PUTNAM PT Amended: Links added.
--- NOTE | 2018-10-23 15:06 | NUR ---
Occupational Therapy Impression SBA supine to sit with bed rail. SBA to maintain unsupported upright posture seated EOB with use of bed rail for support with R) UE x5 minutes. Mod-Max A UB/LB dressing. CGA lateral transfer bed<>w/c with no assistive device. Pt progressing well towards goals. Continue POC. Occupational Therapy Goals 1) Patient will complete lower body dressing with moderate assistance. 2) Patient will complete toileting with minimum assistance. 3) Pt will be independent UB ther ex HEP. 4) Patient will complete chair to bed, bed to chair transfer with minimum assistance 5) Patient will increase Roxana Index by 2 points. Patient's Goal
[2018-10-23 16:52] VITALS: BP 128/73
[2018-10-23] MEDS: TAMSULOSIN HCL 0.4 MG CAP PO SCH (20:19)
[2018-10-24 07:30] VITALS: BP 110/58
[2018-10-24 08:00] LABS: PLATELET COUNT, AUTOMATED 299 K/uL (150-450)
[2018-10-24] MEDS: NYSTATIN 100,000 U/GM PWD 15GM TP SCH ×2 (08:12→20:15)
[2018-10-24] MEDS: CEFEPIME HCL 2 GM VIAL IVP SCH ×2 (08:13→20:15)
[2018-10-24] MEDS: [UNRECOGNIZED DRUG - OTHER] INTRATHEC SCH (09:00)
[2018-10-24] MEDS: BACLOFEN INTRATHEC SCH (09:00)
[2018-10-24] MEDS: MULTIVITAMINS TAB PO SCH (09:14)
[2018-10-24] MEDS: OXYBUTYNIN CHL XL 5 MG TABCR PO SCH ×2 (09:14→20:15)
[2018-10-24] MEDS: DOCUSATE SODIUM 100 MG CAP PO SCH ×2 (09:14→20:15)
[2018-10-24] MEDS: VILAZODONE HCL 40 MG TAB PO SCH (09:14)
[2018-10-24] MEDS: ENOXAPARIN 40 MG/0.4ML SYR SC SCH (09:14)
[2018-10-24] MEDS ORDERED: BISACODYL 10 MG SUPP PR PRN (13:50)
[2018-10-24] MEDS ORDERED: MAGNESIUM HYDROXIDE* 30ML UDCP PO PRN (13:50)
--- NOTE | 2018-10-24 13:55 | Hospitalist Progress Note ---
Subjective Progress Notes Subjective He was admitted with cellulitis. He has complaints of constipation, but otherwise feels he is much improved from admission. Patient Complains of: Cardiovascular: No: Chest Pain Respiratory: No: Shortness of Breath Physical Exam Vital Signs Date Time Temp Pulse Resp B/P (MAP) Pulse Ox O2 Delivery O2 Flow Rate FiO2 10/24/18 08:30 95 Nasal Cannula 10/24/18 07:30 97.5 85 14 110/58 (75) 95.0 Intake and Output 10/24/18 00:59 Intake Total 1160 ml Output Total 1000 ml Balance 160 ml Intake Oral 1160 ml Output Urine Total 1000 ml # Voids 6 General Appearance: Alert, Awake, No Acute Distress, Afebrile Cardiovascular: Regular Rate and Rhythm Respiratory: No Respiratory Distress, Clear to Auscultation Extremities: Warm, Perfused, Other (cellulitis improved, no signs of erythema) Psych: Alert & Oriented X3, Appropriate Mood & Affect Result Diagram: 10/24/18 0751 10/24/18 0751 Assessment and Plan Problems: (1) Cellulitis of right lower leg Status: Acute Assessment & Plan: He did present with erythema of the right lower leg. He was started on empiric treatment with Zosyn, but was then switched to Cefepime. He was also started on empiric vancomycin. The vancomycin was stopped ., he was then placed on Cefdinir 10/14, with worsening erythema. He was placed back on Cefepime /, with improvement in erythema. Will need to continue Cefepime for a total treatment of 14 days. His last dose of Cefepime will be Thursday 10/26. (2) ARF (acute renal failure) Status: Acute Assessment & Plan: He have elevated creatinine level upon admission, which improved with IV hydration. His creatinine is 1.3. Continue to monitor. (3) Cerebral palsy Status: Chronic Assessment & Plan: He does have a baclofen pump, which has been continued. Swelling and pain were inhibiting his transfers, so he was transferred to [facility] for ongoing wound care and rehab before returning home. CHRISTOPH POWERP Oct 24, 2018 13:55
--- NOTE | 2018-10-24 13:58 | NUR ---
This Physical Therapist or Cribbing Setter was present for the entire physical therapy session directing the services, making the skilled judgement, and was not engaged in treating another patient or doing another task at the same time as the treatment session. Addendum: 10/24/18 at 1358 by WILLIAN NICE PT Amended: Links added.
--- NOTE | 2018-10-24 14:01 | Hospitalist Depart ---
Discharge Summary Reason for Hosp/Final Diag: (1) Cellulitis of right lower leg Status: Acute Hospital Course & Plan: He did present with erythema of the right lower leg. He was started on empiric treatment with Zosyn, but was then switched to Cefepime. He was also started on empiric vancomycin. The vancomycin was s topped ., he was then placed on Cefdinir 10/14, with worsening erythema. He was placed back on Cefepime 10/15, with improvement in erythema. He continued Cefepime for a total treatment of 14 days. He should follow up with PCP in 1-2 weeks. (2) ARF (acute renal failure) Status: Acute Hospital Course & Plan: He have elevated creatinine level upon admission, which improved with IV hydration. His creatinine is 1.3. (3) Cerebral palsy Status: Chronic Hospital Course & Plan: He does have a baclofen pump, which has been continued. Swelling and pain were inhibiting his transfers, so he was transferred to [facility] for ongoing wound care and rehab before returning home. Departure Latest Vital Signs Vital Signs 10/24/18 10/24/18 07:30 08:30 Temp 97.5 Pulse 85 Resp 14 B/P (MAP) 110/58 (75) Pulse Ox 95 O2 Delivery Nasal Cannula O2 Flow Rate 95.0 Weight (Pounds): 198 Weight (Ounces): 13.0 Result Diagram: 10/24/18 0751 10/25/18 0552 Condition: Improved Discharge: Home, Home Health PT/OT Follow Up For: PT For Strengthening, OT For ADL's, PT Evaluation and T reat, OT Evaluation and Treat Home Health RN Follow Up For: Nursing Assessment Home Health TAPE CUTTING MACHINE OPERATOR Follow Up For: ADL Assistance Discharge Instructions Home Meds Reported Medications Diphenhydramine Hcl (DIPHENHYDRAMINE HCL) 25 Mg Tablet, 50 MG PO QHS PRN for INSOMNIA, TAB 10/16/18 Naproxen Sodium (ALEVE) 220 Mg Capsule, 440 MG PO BID PRN for PAIN, CAPSULE 10/16/18 Docusate Sodium (COLACE) 100 Mg Capsule, 100 MG PO BID, #30 CAPSULE 10/05/17 Calcium Carbonate (CALCIUM) 500 Mg Tablet, 2000 MG PO QDAY 06/12/16 Multivitamin (MULTI VITAMIN DAILY) 1 Each Tablet, 1 EACH PO QDAY 06/12/16 Oxybutynin Chloride (OXYBUTYNIN CHLORIDE ER) 10 Mg Tab.er.24, 10 MG PO BID, TAB.SR 06/12/16 Tamsulosin Hcl (FLOMAX) 0.4 Mg Cap.er.24h, 0.4 MG PO DAILY 02/23/15 Baclofen (LIORESAL INTRATHECAL) 50 Mcg/1 Ml Ampul, 165 MCG IT DAILY Continuous Infusion via inserted pump 02/23/15 Vilazodone Hydrochloride (VIIBRYD) 40 Mg Tablet, 40 MG PO QDAY 02/21/12 Al Hydrox/Mg Trisilicate (Gaviscon) 1 Ea Chew, 4 EA PO QHS 02/21/12 Acetaminophen/Diphenhydramine (TYLENOL PM (OR EQUIV) 500/25 MG (PATIENT OWN) 1 Each Tablet, 1 TAB PO QHS PRN 325/25 02/20/12 Ranitidine Hcl (Zantac) 150 Mg Tab, 150 MG PO 1-2XD, 0 Refills 01/26/10 Diet: Regular Activity: As Tolerated Special Instructions: Follow up with primary care provider in 1-2 weeks. Take medications as prescribed. Increase hydration. Copies to: SHANNEN MILLIGAN MD ; Venous Thromboembolism Antithrombotics Is Pt On Any Antithrombotics?: No [id number] Certification Face to Face Home Health Certification Patient's Primary Care Provider: Shannen Milligan MD Institutional Provider conducted the [id number] encounter. Electronic Undersigning Physician Certifies Home Health. I certify that the patient has been under my care and that I had a [id number] encounter that meets the physician [id number] encounter requirements with this patient. This patient is home-bound due to safety issues and continues to require assistance with ADL's. I certify that based on my findings, that Nursing, Aides and the following Home Health services are medically necessary: Medical Necessity: Nursing, Rehab Date Face to Face Conducted: Oct 26, 2018 CHRISTOPH POWER Oct 24, 2018 14:01
--- NOTE | 2018-10-24 14:40 | NUR ---
Occupational Therapy Impression Agreeable to core strengthening to improve tolerance for IADLs (reaching into kitchen cupboards/donning shoes). SBA to maintain upright posture crossing midline and reaching high/low. Pt reports plans for discharge home Monday, desires to complete toilet transfer tomorrow in preparation. Occupational Therapy Goals 1) Patient will complete lower body dressing with moderate assistance. 2) Patient will complete toileting with minimum assistance. 3) Pt will be independent UB ther ex HEP. 4) Patient will complete chair to bed, bed to chair transfer with minimum assistance 5) Patient will increase Roxana Index by 2 points. Patient's Goal
[2018-10-24 15:50] VITALS: BP 103/61
[2018-10-24] MEDS: TAMSULOSIN HCL 0.4 MG CAP PO SCH (20:15)
[2018-10-24] MEDS: RANITIDINE HCL 150 MG TAB PO PRN (20:17)
[2018-10-25] MEDS: CEFEPIME HCL 2 GM VIAL IVP SCH ×2 (07:53→19:42)
[2018-10-25] MEDS: NYSTATIN 100,000 U/GM PWD 15GM TP SCH ×2 (07:54→20:38)
[2018-10-25 08:17] VITALS: BP 107/54
[2018-10-25] MEDS: VILAZODONE HCL 40 MG TAB PO SCH (08:51)
[2018-10-25] MEDS: MULTIVITAMINS TAB PO SCH (08:51)
[2018-10-25] MEDS: OXYBUTYNIN CHL XL 5 MG TABCR PO SCH ×2 (08:51→20:50)
[2018-10-25] MEDS: ENOXAPARIN 40 MG/0.4ML SYR SC SCH (08:52)
[2018-10-25] MEDS: POLYETHYLENE GLYCOL 17 GM PKT PO SCH (08:52)
[2018-10-25] MEDS: DOCUSATE SODIUM 100 MG CAP PO SCH ×2 (08:52→20:41)
[2018-10-25] MEDS: [UNRECOGNIZED DRUG - OTHER] INTRATHEC SCH (09:00)
[2018-10-25] MEDS: BACLOFEN INTRATHEC SCH (09:00)
--- NOTE | 2018-10-25 10:40 | NUR ---
Occupational Therapy Impression CGA/SBA lateral transfer w/c<>toilet and toilet<>w/c. Simulated home bathroom set-up for transfer. Pt reports confidence with (I) for transfers in adapted home environment. Pt has met all appropriate skilled OT goals. Plan for discharge home tomorrow with services. Occupational Therapy Goals 1) Patient will complete lower body dressing with moderate assistance. 2) Patient will complete toileting with minimum assistance. 3) Pt will be independent UB ther ex HEP. 4) Patient will complete chair to bed, bed to chair transfer with minimum assistance 5) Patient will increase Roxana Index by 2 points. Patient's Goal
--- NOTE | 2018-10-25 10:41 | NUR ---
OCCUPATIONAL THERAPY Dressing Assistance: Mod A Dressing Aid Required: None Bathing Assistance: N/T with OT Home Assessment: Not Completed Feeding Assistance: Independent Feeding Specialized Equipment: None Toilet Use: CGA/SBA toilet transfers Verbalizes Needs: Yes Understands Precautions: Yes Cooperative: Yes Family Teaching: No Occupational Therapy Comment:
--- NOTE | 2018-10-25 10:47 | OT ECF NOTE ---
Type of Note: Discharge Note Primary Medical Diagnosis: Generalized weakness s/p recent hospital admission for cellulitis (right lower extremity) and sepsis (resolved) Occupational Therapy Evaluation Date: 10/18/18 SUBJECTIVE: Prior Hospitalization: [facility] 10/11/18 thru 10/18/18 Prior Level of Function: Patient has private caregiver assist 7x/week, 1x/day for ADLs. He completes stand pivot transfers 3x/day with a transfer pole (out of bed, to toilet, and back to bed) He has assist for bathing and to get out of bed in the morning and dressed for the day. He spends the majority of his day utilizing a power wheelchair and then transfers back to bed at night. Prior Living Status: Single level house Spouse Assist by family Community Services: Support adequate-private caregiver assist with ADLs every morning to get up and ready for day No known needs Home Accessibility: Ramp All needs on one level Walk-in shower Equipment Owned: Tub/shower chair Wheelchair Medical Complications/Past Medical History: Cerebral palsy, please see reports for further details Psychosocial Support: Supportive spouse Pain Scale (0-10): None reported at time of evaluation Hand Dominance: Right OBJECTIVE: Strength: MMT: Right Left Shoulder Flexion WFL N/T Elbow Flexion WFL N/T Wrist Extension WFL N/T Malter Operator WFL N/T (5= normal, 4= good, 3= fair, 2= poor, 1= trace) ROM: Left, Severely limited. Pt following up with [facility] regarding right shoulder pain. MRI with Dr. Avila prior to admission. Sensation: No paraesthesia reported Functional Transfer: Assistive Device: Gait belt, Grab bar Transfer Ability: SBA/CGA lateral transfers ADL: Upper body dressing: Assistive device: None Upper body dressing ability: Moderate Assistance Lower body dressing: Assistive device: None Lower body dressing ability: Moderate Assistance Toileting: Assistive device: Toileting ability: SBA/CGA Grooming/hygiene: Assistive device: Seated Grooming ability: Independent Bathing: Assistive device: Walk-in shower and shower chair Bathing ability: N/T. Assist at home with bathing. Standardized Assessment: Roxana Index of Activities of Daily Livin/10 upon initial evaluation. 04/03 upon discharge date (10/25/18). ASSESSMENT: [facility] 2 person assist for functional transfers and ADLs. Currently, he is SBA/CGA lateral transfers, is able to don R) shoe for support during transfers and has returned to baseline for ADLs. He has met all skilled OT goals and presents with no further questions/concerns for OT at this time. Short Term Goals: 1) Patient will complete lower body dressing with moderate assistance. GOAL MET 2) Patient will complete toileting with minimum assistance. GOAL MET 3) Pt will be independent UB ther ex HEP. GOAL MET 4) Patient will complete chair to bed, bed to chair transfer with minimum assistance GOAL MET 5) Patient will increase Roxana Index by 2 points. GOAL MET Senior Care Goals: Return home with home health services Patient Goals: Return home Rehabilitation Prognosis: Fair Barriers to Discharge: Medical history PLAN: The patient will discharge home 10/26/18 with Home Health services. Thank you for this referral. If you have any questions, concerns, or comments about this report or plan, please contact me at . Adriana Montoya MS, OTR/L Occupational Therapist ANGELINE
--- NOTE | 2018-10-25 13:43 | NUR ---
Physical Therapy Impression Pt was able to perform two squat pivot transfers from wheelchair to bed with only CGA. Pt also more efficient throughout transfer, performing them faster while still maintaining safety. Pt performed bed mobility with SBA and use of bed rail. Pt was left in his wheelchair with all needs met and call light in reach. The patient has met all PT goals and is safe to d/c home from a mobility stand point when medically appropriate. Rec that pt continue to receive [facility] PT services upon d/c home. Physical Therapy Goals 1. Pt to complete squat-pivot transfer bed to/from power W/C with use of afo's and shoes for safety, once edema reduces in R) LE such that skin integrity can be protected. 2. Pt to be Min assist for supine to sit and CGA for sit to supine 3. Pt to demo trunk strength, such that he can safely propel W/C around furniture and equipment without self injury. Patient's Goals
--- NOTE | 2018-10-25 15:19 | NUR ---
This Physical Therapist or Bail Attacher was present for the entire physical therapy session directing the services, making the skilled judgement, and was not engaged in treating another patient or doing another task at the same time as the treatment session. Addendum: 10/25/18 at 1520 by JOHN PORRAS PT Amended: Links added.
[2018-10-25 16:15] VITALS: BP 110/64
[2018-10-25] MEDS: RANITIDINE HCL 150 MG TAB PO PRN (20:40)
[2018-10-25] MEDS: TAMSULOSIN HCL 0.4 MG CAP PO SCH (20:41)
[2018-10-26 07:25] VITALS: BP 108/56
[2018-10-26] MEDS: CEFEPIME HCL 2 GM VIAL IVP SCH (07:55)
[2018-10-26] MEDS: NYSTATIN 100,000 U/GM PWD 15GM TP SCH (07:56)
[2018-10-26] MEDS: BACLOFEN INTRATHEC SCH (09:00)
[2018-10-26] MEDS: [UNRECOGNIZED DRUG - OTHER] INTRATHEC SCH (09:00)
[2018-10-26] MEDS: POLYETHYLENE GLYCOL 17 GM PKT PO SCH (09:10)
[2018-10-26] MEDS: MULTIVITAMINS TAB PO SCH (09:11)
[2018-10-26] MEDS: VILAZODONE HCL 40 MG TAB PO SCH (09:11)
[2018-10-26] MEDS: DOCUSATE SODIUM 100 MG CAP PO SCH (09:11)
[2018-10-26] MEDS: OXYBUTYNIN CHL XL 5 MG TABCR PO SCH (09:11)
[2018-10-26] MEDS: ENOXAPARIN 40 MG/0.4ML SYR SC SCH (09:11)
--- NOTE | 2018-10-26 10:14 | NUR ---
DC MDS completed with pt. C: 15, D: 00, E: no concerns, Q: plans to DC to community, referrals made for [facility] through [facility]. Pt reporting no additional needs at home, will continue to follow for DC plans.
--- NOTE | 2018-10-26 10:40 | NUR ---
Physical Therapy Impression Wound re-eval completed after Pt's shower. Blisters have reabsorbed and dry skin now remaining. PT applied lotion, compression socks and regular socks followed by AFO and shoes. Pt plans to follow up with [facility] for new AFO's to better suit his needs, as these are somewhat larger than his current leg due to weight loss since they were fabricated several years ago. Pt to follow up with [facility] services for skin care, nursing and therapy recommended. Physical Therapy Goals 1. Pt to complete squat-pivot transfer bed to/from power W/C with use of afo's and shoes for safety, once edema reduces in R) LE such that skin integrity can be protected. 2. Pt to be Min assist for supine to sit and CGA for sit to supine 3. Pt to demo trunk strength, such that he can safely propel W/C around furniture and equipment without self injury. Patient's Goals
--- NOTE | 2018-10-26 13:29 | PT ECF NOTE ---
Type of Note: Discharge Primary Medical Diagnosis: Generalized weakness s/p recent hospital admission for cellulitis (right lower extremity) and sepsis (resolved) Physical Therapy Discharge Date: 10/25/18 SUBJECTIVE: Prior Hospitalization: [facility] 10/11/18 thru 10/18/18 Prior Level of Function: Patient has private caregiver assist 7x/week, 1x/day for ADLs. He completes stand pivot transfers 3x/day with a transfer pole (out of bed, to toilet, and back to bed) He has assist for bathing and to get out of bed in the morning and dressed for the day. He spends the majority of his day utilizing a power wheelchair and then transfers back to bed at night. Prior Living Status: Single level house Spouse Assist by family Community Services: Support adequate-private caregiver assist with ADLs every morning to get up and ready for day No known needs Home Accessibility: Ramp All needs on one level Walk-in shower Equipment Owned: Tub/shower chair Wheelchair Medical Complications/Past Medical History: Cerebral palsy, please see reports for further details Psychosocial Support: Supportive spouse Pain Scale (0-10): None reported at time of evaluation Hand Dominance: Right OBJECTIVE: Strength: Formal MMT not completed; pt has cerebral palsy with increased tone throughout and LE's more affected than UE's. Pt notes that LE strength is decreased overall as compared to his baseline, where he can usually transfer with use of a pivot pole to access his power W/C with only one person assist. ROM: (please note any abnormalities) decreased knee extension related to increased tone and contractures. Pt encouraged to elevated lower legs on pillows to float heels and decrease risk of pressure injury. Sensation: (please note any abnormalities) some paresthesias related to CP, however, not limiting to functional mobility. Other Neuro findings: CP Bed Mobility: SBA Assistive device: Bed rail Transfers: Squat pivot transfers from wheelchair to bed with CGAx1 Assistive Device: Bed rail Gait: Non-ambulatory; pt utilizes power W/C for repositioning with tilt in space mechanism and for mobility Assistive device: Stairs: N/A Assistive device: Timed Up and Go (>12 seconds indicated increased risk for falls): n/a 10 meter walk test (0.6m/second cannot function independently): n/a Other Objective Measures: n/a ASSESSMENT: Pt has made great progress and has met all PT goals. Overall strength has improved enough that Pt can now perform squat pivot transfers with only CGA. Pt can perform bed mobility with only SBA and can safely propel W/C around obstacles without decreased safety. Pt is likely at or near previous functional baseline and is safe for discharge with home health care. Problem List/Current Limitations: Decreased strength for functional mobility Short Term Goals: All goals met 1. Pt to complete squat-pivot transfer bed to/from power W/C with use of afo's and shoes for safety, once edema reduces in R) LE such that skin integrity can be protected. 2. Pt to be Min assist for supine to sit and CGA for sit to supine 3. Pt to demo trunk strength, such that he can safely propel W/C around furniture and equipment without self injury. Fdc Goals: Pt to return home with appropriate assistance from private caregivers and [facility] agency. -met Patient Goals: To return home - met PLAN: The patient will discharge home with Home Health care services and previous caregiver assistance. Thank you for this referral. If you have any questions, concerns, or comments about this report or plan, please contact me at . Miguelito Mcgee SPT Leslie Mcdonough PT, DPT MTDD
--- NOTE | 2018-10-26 13:31 | NUR ---
PHYSICAL THERAPY INFORMATION TRANSFER SHEET BED MOBILITY: Standby Assistance TRANSFERS: CGA Verbalizes Needs: Yes Understands Directions Yes Cooperative: Yes Family Teaching: No Physical Therapy Comment:
--- NOTE | 2018-10-26 16:11 | NUR ---
This Physical Therapist or Cigarette Maker was present for the entire physical therapy session directing the services, making the skilled judgement, and was not engaged in treating another patient or doing another task at the same time as the treatment session. Addendum: 10/26/18 at 1611 by JOHN PORRAS PT Amended: Links added.
== END 2018-10-26 14:50 | disposition home or self-care (01) | DRG 603 ==
LOC: SWB 10:00
PROVIDERS: ADMIT Internal Medicine; ATTEND Internal Medicine
PROC: 0HDKXZZ Extraction of Right Lower Leg Skin, External Approach (ICD-10-PCS; principal; 2018-10-19)
DX: L03.115 Cellulitis of right lower limb (principal); N17.9 Acute kidney failure, unspecified; K59.09 Other constipation; Z96.89 Presence of other specified functional implants; Z90.49 Acquired absence of other specified parts of digestive tract; G80.9 Cerebral palsy, unspecified
CPT/HCPCS: 36415; 82040; 82247; 82310; 82374; 82435; 82565; 82947; 84075; 84132; 84155; 84295; 84450; 84460; 84520; 85025; 97161; 97166; J0692; J1650

== ENCOUNTER → 2018-11-01 | Outpatient (CLI) | payer MEDICARE, OTHER ==
[2018-05-28 09:47] VITALS: BMI 28.7
--- NOTE | 2018-11-01 17:35 | RADIOLOGY IMAGING REPORT ---
[place] [facility] [place] NAME: Ramu Carney : 1960 MR: [id number] V: [id number] EXAM DATE: ORDERING PHYSICIAN: SHANNEN MILLIGAN TECHNOLOGIST: Location: [facility] Patient: Ramu Carney : 1960 Visit/Account:[id number] Date of Sevice: 11/01/2018 Venous Doppler ultrasound right lower extremity Indication: Right leg and foot pain and swelling. Cellulitis.. Comparison: None Available Findings: Duplex Doppler and color flow imaging was performed. The common femoral, femoral, and popl iteal veins are all patent and compressible with normal Doppler wave forms. There are normal respons es to augmentation. The posterior tibial and peroneal veins are patent in the calf. The proximal greater saphenous vein i s also normal. Subcutaneous tissues show edema. IMPRESSION: 1. No evidence of deep venous thrombosis of the right lower extremity. Report Dictated By: Bruno Vergara at 11/01/2018 5:28 PM Report E-Signed By: Bruno Vergara at 11/01/2018 5:29 PM WSN:[id number]
== END ==
LOC: US 16:05
PROVIDERS: ATTEND Family Medicine
DX: M79.671 Pain in right foot (principal)